=== PATIENT | male | born 1985 | race African-American/Black ===

== ENCOUNTER 2016-11-22 18:44 | Emergency (ER) | payer MEDICARE, OTHER | END 2016-11-22 19:40 | disposition left against medical advice (07) | LOC: ER 18:44 | DX: Z53.9 Procedure and treatment not carried out, unspecified reason (principal); R10.9 Unspecified abdominal pain ==

== ENCOUNTER 2016-11-23 06:23 | Emergency (ER) | payer OTHER, MEDICARE ==
--- NOTE | 2016-11-23 07:56 | EKG REPORT ---
SEVERITY:- OTHERWISE NORMAL ECG - SINUS RHYTHM BORDERLINE LEFT AXIS DEVIATION ST ELEV, PROBABLE NORMAL EARLY REPOL PATTERN : Confirmed by: Danae Sahni 23-Nov-2016 07:55:53
[2016-11-23] MEDS ORDERED: MAG HYDROX/AL HYDROX/SIMETH SUSP 30 ML UDCUP PO ONE (08:24)
[2016-11-23] MEDS ORDERED: LIDOCAINE 2% VISCOUS SOLN 20 ML UDCUP PO ONE (08:24)
--- NOTE | 2016-11-23 08:25 | ER Document Report ---
ED General - General Chief Complaint: Nausea Stated Complaint: NAUSEA Mode of Arrival: Ambulatory Information source: Patient Notes: Patient complains of chest pain that started today around 4 AM while he was sleeping. Patient states that the chest pain has gradually started to resolve when he does complain of continued abdominal cramping for the past 3 days. Patient reports diarrhea 2 days ago that seems to be better today. Patient does complain of some mild nausea. Headache that starts in the occipital area and wraps around the sides of his head started yesterday. Patient denies any fever or cough. Patient does report a history of GERD. TRAVEL OUTSIDE OF THE [place] IN LAST 30 DAYS: No - HPI Onset: This morning Onset/Duration: Gradual Pain Level: 2 Associated symptoms: Chest pain - Now resolved, Diarrhea - 2 days ago, Headache , Nausea. 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 - Social History Smoking Status: Never Smoker Chew tobacco use (# tins/day): No Frequency of alcohol use: None Drug Abuse: None Occupation: none Lives with: Family Family History: Reviewed & Not Pertinent Patient has suicidal ideation: No Patient has homicidal ideation: No GI Medical History: Reports: Hx Gastroesophageal Reflux Disease Psychiatric Medical History: Reports: Hx Anxiety, Hx Depression, Hx Post Traumatic Stress Disorder Past Surgical History: Reports: Hx Oral Surgery, Hx Tonsillectomy - Immunizations Hx Diphtheria, Pertussis, Tetanus Vaccination: Yes Review of Systems - Review of Systems Constitutional: No symptoms reported. denies: Fever, Recent illness EENT: No symptoms reported Cardiovascular: Chest pain. denies: Dyspnea, Syncope Respiratory: No symptoms reported. denies: Cough Gastrointestinal: Abdominal pain, Diarrhea, Nausea. denies: Vomiting Genitourinary: No symptoms reported Male Genitourinary: No symptoms reported Musculoskeletal: Neck pain - Patient complains of neck pain, but points to the occipital area of his head. denies: Back pain Skin: No symptoms reported Hematologic/Lymphatic: No symptoms reported Neurological/Psychological: Anxiety, Headaches Physical Exam - Vital signs Vitals: Temp Pulse Resp BP Pulse Ox 98 F 78 18 138/77 H 97 11/23/16 06:36 11/23/16 06:36 11/23/16 06:36 11/23/16 06:36 11/23/16 06:36 - General General appearance: Appears well, Alert In distress: None - HEENT Head: Normocephalic, Atraumatic Eyes: Normal Pupils: PERRL Ears: Normal External canal: Normal Nasal: Normal Mouth/Lips: Normal Mucous membranes: Normal Pharynx: Normal. No: Exudate, Tonsillar hypertrophy Neck: Normal, Supple. No: Lymphadenopathy, Meningismus - Respiratory Respiratory status: No respiratory distress Chest status: Nontender Breath sounds: Normal. No: Rales, Rhonchi, Stridor, Wheezing Chest palpation: Normal - Cardiovascular Rhythm: Regular Heart sounds: S1 appreciated, S2 appreciated Murmur: No - Abdominal Inspection: Obese Distension: No distension Bowel sounds: Normal Tenderness: Tender - Generalized abdominal tenderness. No: Guarding Organomegaly: No organomegaly - Back Back: Normal, Nontender. No: Deformity/step-off, CVA tenderness, Vertebra tenderness - Extremities General upper extremity: Normal inspection, Normal strength General lower extremity: Normal inspection, Normal strength - Neurological Neuro grossly intact: Yes Cognition: Normal Lisa Coma Scale Eye Opening: Spontaneous Lisa Coma Scale Verbal: Oriented [place] Coma Scale Motor: Obeys Commands Lisa Coma Scale Total: 15 - Psychological Associated symptoms: Anxious - Skin Skin Temperature: Warm Skin Moisture: Dry Skin Color: Normal Skin irregularity: negative: Rash Course - Re-evaluation Re-evalutation: 11/23/16 09:56 Patient denies any chest pain, states abdominal pain seems to be improving. Patient does continue with headache pain. 11/23/16 11:40 Patient continues to deny any chest discomfort. Patient states abdominal pain is resolved. Patient reports only mild headache at this time. Discussed worsening signs or symptoms that patient should return immediately for. Patient verbalized understanding and agrees plan of care. The patient has atypical chest pain as the patient's chest pain is not suggestive of pulmonary embolus, cardiac ischemia, aortic dissection, or other serious etiology. Given the extremely low risk of these diagnoses for the test in evaluation for these possibilities does not appear to be indicated at this time. Patient has been instructed to return if the symptoms worsen or change in any way. HEART score H- 0, E-1, A-0,R-0, T-0. - Vital Signs Vital signs: Temp Pulse Resp BP Pulse Ox 98.0 F 75 18 135/75 H 100 11/23/16 12:22 11/23/16 12:22 11/23/16 12:22 11/23/16 12:22 11/23/16 12:22 - Laboratory Result Diagrams: 11/23/16 09:15 11/23/16 09:15 Laboratory results interpreted by me: 11/23/16 11/23/16 09:15 09:15 WBC 3.6 L RBC 6.16 H MCV 72 L MCH 23.2 L RDW 15.6 H Band Neutrophils % 1 L Monocytes % (Manual) 17 H ALT 86 H Creatine Kinase 317 H - Diagnostic Test Radiology reviewed: Reports reviewed - EKG Interpretation by Ut EKG shows normal: Sinus rhythm [place]/QRS: Left axis deviation When compared to previous EKG there are: No significant change Discharge - Discharge Clinical Impression: Hx of gastroesophageal reflux (GERD), Abdominal cramping Chest pain Qualifiers: Chest pain type: unspecified Qualified Code(s): R07.9 - Chest pain, unspecified Headache Qualifiers: Headache type: unspecified Headache chronicity pattern: acute headache Intractability: not intractable Qualified Code(s): R51 - Headache Condition: Stable Disposition: HOME, SELF-CARE Instructions: Chest Pain of Unclear Cause ([facility]), Reflux Disease (GERD) ([facility]), Tension Headache ([facility]), Abdominal Pain ([facility]), Diarrhea, Nonspecific ([facility]) Additional Instructions: Return immediately for any new or worsening symptoms Followup with your primary care provider, call tomorrow to make a followup appointment Prescriptions: Butalb/Acetaminophen/Caffeine [Fioricet (50-325-40 mg) Tablet] 1 - 2 tab PO Q4H #20 each Sucralfate [Carafate 1 gm Tablet] 1 gm PO ACHS #30 tablet Referrals: [facility] [Provider Group] - Follow up tomorrow
[2016-11-23 09:43] LABS: HEMATOCRIT 44.2 % (37.9-51.0); HEMOGLOBIN 14.3 g/dL (13.5-17.0); HGB HCT DIFFERENCE -1.3; MEAN CORPUSCULAR HEMOGLOBIN 23.2 pg (27.0-33.4); MEAN CORPUSCULAR HGB CONC 32.3 g/dL (32.0-36.0); MEAN CORPUSCULAR VOLUME 72 fl (80-97); RED BLOOD COUNT 6.16 10^6/uL (4.35-5.55); RED CELL DISTRIBUTION WIDTH 15.6 % (11.5-14.0); WHITE BLOOD COUNT 3.6 10^3/uL (4.0-10.5)
[2016-11-23 09:54] LABS: APPEARANCE,URINE CLEAR; BILIRUBIN,URINE NEGATIVE (NEGATIVE); GLUCOSE, URINE NEGATIVE (NEGATIVE); KETONES,URINE NEGATIVE (NEGATIVE); LEUKOCYTE ESTERASE,URINE NEGATIVE (NEGATIVE); NITRITE,URINE NEGATIVE (NEGATIVE); PROTEIN,URINE NEGATIVE (NEGATIVE); URINE SPECIFIC GRAVITY 1.018; UROBILINOGEN,URINE NEGATIVE mg/dL (<2.0)
[2016-11-23] MEDS ORDERED: BUTALB/ACETAMINOPHEN/CAFFEINE 1 TAB EACH PO ONE (09:55)
[2016-11-23 10:06] LABS: URINE BARBITURATES SCREEN NEGATIVE; URINE METHADONE SCREEN NEGATIVE; URINE PHENCYCLIDINE SCREEN NEGATIVE
[2016-11-23 10:11] LABS: BAND NEUTROPHILS % (MANUAL) 1 % (3-5); BASOPHILS % (MANUAL) 2 % (0-2); EOSINOPHILS % (MANUAL) 0 % (0-6); LYMPHOCYTES % (MANUAL) 30 % (13-45); TOTAL CELLS COUNTED 100
[2016-11-23 10:12] LABS: ANISOCYTOSIS SLIGHT; MICROCYTOSIS 1+; TOXIC GRANULATION SLIGHT; TOXIC VACUOLATION PRESENT
[2016-11-23 10:25] LABS: ALANINE AMINOTRANSFERASE 86 U/L (21-72); ALBUMIN 4.5 g/dL (3.5-5.0); ALKALINE PHOSPHATASE 43 U/L (38-126); ANION GAP 14 (5-19); ASPARTATE AMINO TRANSFERASE 42 U/L (17-59); BILIRUBIN,TOTAL 0.9 mg/dL (0.2-1.3); BLOOD UREA NITROGEN 8 mg/dL (7-20); CALCIUM 9.3 mg/dL (8.4-10.2); CARBON DIOXIDE 24 mmol/L (22-30); CHLORIDE 103 mmol/L (98-107); CREATINE KINASE 317 U/L (55-170); CREATININE RESULT 0.99 mg/dL (0.52-1.25); GLUCOSE 103 mg/dL (75-110); LIPASE 123.8 U/L (23-300); POTASSIUM 4.1 mmol/L (3.6-5.0); SODIUM 140.6 mmol/L (137-145); TOTAL PROTEIN 7.5 g/dL (6.3-8.2)
[2016-11-23 10:34] LABS: CREATINE KINASE MB 0.29 ng/mL (<4.55)
[2016-11-23 10:36] LABS: TROPONIN I < 0.012 ng/mL
[2016-11-23 12:23] VITALS: BP 135/75
== END 2016-11-23 12:23 | disposition home or self-care (01) ==
LOC: ER 06:23
DX: R10.9 Unspecified abdominal pain (principal); R11.0 Nausea; R51 Headache; R07.89 Other chest pain; R10.817 Generalized abdominal tenderness; F41.9 Anxiety disorder, unspecified; Z88.8 Allergy status to other drugs, medicaments and biological substances; Z88.6 Allergy status to analgesic agent; Z87.19 Personal history of other diseases of the digestive system
CPT/HCPCS: 93005; 99284; 36415; 82553; 82550; 83690; 85025; 80053; 81001; 84484; 80307; 71020; 70450; 93010; J3490 ×2

== ENCOUNTER 2016-12-21 05:17 | Emergency (ER) | payer OTHER, MEDICARE ==
[2016-12-21 06:08] LABS: ABSOLUTE BASOPHILS # (AUTO) 0.1 10^3/uL (0.0-0.2); ABSOLUTE EOSINOPHILS # (AUTO) 0.5 10^3/uL (0.0-0.6); ABSOLUTE LYMPHOCYTES (AUTO) 2.5 10^3/uL (0.5-4.7); ABSOLUTE MONOCYTES (AUTO) 0.6 10^3/uL (0.1-1.4); ABSOLUTE NEUT (AUTO) 2.4 10^3/uL (1.7-8.2); BASOPHILS % (AUTO) 0.9 % (0-2); EOSINOPHILS % (AUTO) 7.5 % (0-6); HEMATOCRIT 41.5 % (37.9-51.0); HEMOGLOBIN 13.4 g/dL (13.5-17.0); HGB HCT DIFFERENCE -1.3; MEAN CORPUSCULAR HEMOGLOBIN 23.2 pg (27.0-33.4); MEAN CORPUSCULAR HGB CONC 32.2 g/dL (32.0-36.0); MEAN CORPUSCULAR VOLUME 72 fl (80-97); MONOCYTES % (AUTO) 9.3 % (3-13); RED BLOOD COUNT 5.76 10^6/uL (4.35-5.55); RED CELL DISTRIBUTION WIDTH 15.5 % (11.5-14.0); SEGMENTED NEUTROPHILS % (AUTO) 40.3 % (42-78)
[2016-12-21 06:26] LABS: ALANINE AMINOTRANSFERASE 68 U/L (21-72); ALKALINE PHOSPHATASE 41 U/L (38-126); ANION GAP 12 (5-19); ASPARTATE AMINO TRANSFERASE 29 U/L (17-59); BILIRUBIN,TOTAL 0.6 mg/dL (0.2-1.3); BLOOD UREA NITROGEN 18 mg/dL (7-20); CALCIUM 9.5 mg/dL (8.4-10.2); CARBON DIOXIDE 24 mmol/L (22-30); CHLORIDE 103 mmol/L (98-107); CREATINE KINASE 420 U/L (55-170); CREATININE RESULT 0.88 mg/dL (0.52-1.25); GLUCOSE 127 mg/dL (75-110); POTASSIUM 4.1 mmol/L (3.6-5.0); SODIUM 138.9 mmol/L (137-145); TOTAL PROTEIN 7.1 g/dL (6.3-8.2)
[2016-12-21 06:38] LABS: CREATINE KINASE MB 0.74 ng/mL (<4.55)
[2016-12-21 06:42] LABS: TROPONIN I < 0.012 ng/mL
[2016-12-21] MEDS ORDERED: KETOROLAC TROMETHAMINE 60 MG/2 ML SDV IM ONE ×2 (08:38→08:41)
--- NOTE | 2016-12-21 08:50 | ER Document Report ---
ED General - General Chief Complaint: Chest Pain Stated Complaint: LEFT SIDE NUMBNESS Mode of Arrival: Ambulatory Information source: Patient Notes: 31-year-old male history of anxiety presents with tingling sensation in the left hand associated with sharp pain around the left chest worsening with movement. Patient notes symptoms have been constant for 4 days denies any shortness breath difficult to breathing. Patient notes it is reproducible TRAVEL OUTSIDE OF THE [place] IN LAST 30 DAYS: No - HPI Onset: Other Onset/Duration: Persistent Quality of pain: Sharp Severity: Mild Pain Level: 1 Associated symptoms: Body/muscle aches Exacerbated by: Movement Relieved by: Denies Similar symptoms previously: Yes - patient diagnosed with costochondritis last year Recently seen / treated by doctor: No - Related Data Allergies/Adverse Reactions: cyclobenzaprine HCl [From Flexeril] Allergy (Verified 11/23/16 07:54) ibuprofen [From Motrin] Allergy (Verified 11/23/16 07:54) ketorolac tromethamine [From Toradol] Allergy (Verified 11/23/16 07:54) lorazepam [From Ativan] Allergy (Verified 11/23/16 07:54) tramadol [Tramadol] Allergy (Verified 11/23/16 07:54) Past Medical History - Social History Smoking Status: Never Smoker Cigarette use (# per day): No Chew tobacco use (# tins/day): No Smoking Education Provided: No Family History: Reviewed & Not Pertinent Renal/ Medical History: Denies: Hx Peritoneal Dialysis GI Medical History: Reports: Hx Gastroesophageal Reflux Disease Psychiatric Medical History: Reports: Hx Anxiety, Hx Depression - PTSD, anxiety , Hx Post Traumatic Stress Disorder Past Surgical History: Reports: Hx Oral Surgery, Hx Tonsillectomy - Immunizations Hx Diphtheria, Pertussis, Tetanus Vaccination: Yes Review of Systems - Review of Systems Notes: REVIEW OF SYSTEMS: CONSTITUTIONAL : Denies fever, chills, or sweats. Denies recent illness. EENT: Denies eye, ear, throat, or mouth pain or symptoms. Denies nasal or sinus congestion or discharge. Denies throat, tongue, or mouth swelling or difficulty swallowing. CARDIOVASCULAR: Denies chest pain. Denies palpitations or racing or irregular heart beat. Denies ankle edema. RESPIRATORY: Denies cough, cold, or chest congestion. Denies shortness of breath, difficulty breathing, or wheezing. GASTROINTESTINAL: Denies abdominal pain or distention. Denies nausea, vomiting , or diarrhea. Denies blood in vomitus, stools, or per rectum. Denies black, tarry stools. Denies constipation. GENITOURINARY: Denies difficulty urinating, painful urination, burning, frequency, blood in urine, or discharge. MUSCULOSKELETAL: Chest wall pain SKIN: Denies rash, lesions or sores. HEMATOLOGIC : Denies easy bruising or bleeding. LYMPHATIC: Denies swollen, enlarged glands. NEUROLOGICAL: Left hand tingling PSYCHIATRIC: Denies anxiety or stress. Denies depression, suicidal ideation, or homicidal ideation. ALL OTHER SYSTEMS REVIEWED AND NEGATIVE. Dictation was performed using [employer] voice recognition software PHYSICAL EXAMINATION: GENERAL: Well-appearing, well-nourished and in no acute distress. HEAD: Atraumatic, normocephalic. EYES: Pupils equal round and reactive to light, extraocular movements intact, sclera anicteric, conjunctiva are normal. ENT: Nares patent, oropharynx clear without exudates. Moist mucous membranes. NECK: Normal range of motion, supple without lymphadenopathy LUNGS: Breath sounds clear to auscultation bilaterally and equal. No wheezes rales or rhonchi. HEART: Regular rate and rhythm without murmurs ABDOMEN: Soft, nontender, nondistended abdomen. No guarding, no rebound. No masses appreciated. Musculoskeletal: Chest wall tenderness on palpation reproducing same exact pain NEUROLOGICAL: Subjective paresthesia of the left hand PSYCH: Normal mood, normal affect. SKIN: Warm, Dry, normal turgor, no rashes or lesions noted. Physical Exam - Vital signs Vitals: Pulse Ox 100 12/21/16 08:04 Course - Re-evaluation Re-evalutation: 12/21/16 08:52 On evaluation patient is in no distress, he is resting comfortably, given that symptoms have been ongoing for 4 days constant cardiac enzyme should be elevated , first set was negative. Patient otherwise does not have any cardiac history or risk factors I believe patient's pain is secondary to costochondritis versus anxiety. After performing a Medical Screening Examination, I estimate there is LOW risk for RUPTURED ESOPHAGUS, PNEUMOTHORAX, PULMONARY EMBOLISM, ACUTE CORONARY SYNDROME, OR THORACIC AORTIC DISSECTION, thus I consider the discharge disposition reasonable. The patient and I have discussed the diagnosis and risks , and we agree with discharging home with close follow-up. We also discussed returning to the Emergency Department immediately if new or worsening symptoms occur. We have discussed the symptoms which are most concerning (e.g., bloody sputum, worsening pain or shortness of breath) that necessitate immediate return. - Vital Signs Vital signs: Temp Pulse Resp BP Pulse Ox 100 12/21/16 08:04 - Laboratory Result Diagrams: 12/21/16 05:48 12/21/16 05:48 Laboratory results interpreted by me: 12/21/16 12/21/16 05:48 05:48 RBC 5.76 H Hgb 13.4 L MCV 72 L MCH 23.2 L RDW 15.5 H Seg Neutrophils % 40.3 L Eosinophils % 7.5 H Glucose 127 H Creatine Kinase 420 H - Diagnostic Test Radiology reviewed: Image reviewed, Reports reviewed - EKG Interpretation by Me EKG shows normal: Sinus rhythm, [place], Intervals, QRS Complexes Discharge - Discharge Clinical Impression: Chest wall pain, Left hand paresthesia Condition: Stable Disposition: HOME, SELF-CARE Instructions: Chest Pain of Unclear Cause ([facility]) Prescriptions: Naproxen 500 mg PO BID #20 tablet Referrals: SARA RAMIREZ MD [ACTIVE STAFF] - Follow up tomorrow
[2016-12-21] MEDS ORDERED: PROPOFOL INJ 200 MG/20 ML VIAL IV ONE (09:28)
[2016-12-21 10:38] VITALS: BP 138/102
--- NOTE | 2016-12-21 11:24 | EKG REPORT ---
SEVERITY:- OTHERWISE NORMAL ECG - SINUS RHYTHM LEFT AXIS DEVIATION ST ELEV, PROBABLE NORMAL EARLY REPOL PATTERN : Confirmed by: Danae Sahni 21-Dec-2016 11:23:56
== END 2016-12-21 10:38 | disposition home or self-care (01) ==
LOC: ER 05:17
DX: R07.89 Other chest pain (principal); R20.2 Paresthesia of skin; Z88.8 Allergy status to other drugs, medicaments and biological substances; Z88.6 Allergy status to analgesic agent; Z88.5 Allergy status to narcotic agent; Z87.19 Personal history of other diseases of the digestive system
CPT/HCPCS: 36415; 71010; 80053; 82550; 82553; 84484; 85025; 93005; 93010; 99285

== ENCOUNTER 2017-03-16 03:22 | Emergency (ER) | payer OTHER, MEDICARE ==
[2017-03-16] MEDS ORDERED: MORPHINE SULFATE 10 MG/ML INJ IV ONE (04:50)
[2017-03-16] MEDS ORDERED: DEXAMETHASONE SOD PHOS INJ 10 MG/1 ML VIAL IV ONE (04:50)
[2017-03-16] MEDS ORDERED: DIPHENHYDRAMINE HCL 50 MG/ML VIAL IV ONE (04:50)
[2017-03-16] MEDS ORDERED: NORMAL SALINE 1000 ML 1,000 ML IV ONE (04:51)
--- NOTE | 2017-03-16 04:55 | ER Document Report ---
ED General - General Chief Complaint: Chest Pain Stated Complaint: CHEST PAIN HEADACHE AND NECK PAIN Time seen by provider: 04:50 Notes: Patient is a 31-year-old male that comes emergency department for chief complaint of pain in his left axillary area at the lower ribs where he having intermittent sharp pains, he'll states he has a pain in the left rastafari area, he states he feels like he is getting spasms and muscle jerks. He denies shortness of breath, injury, fever, cough. Patient states he has had similar symptoms in the past both from costochondritis and from a medication side effect. He is on medications including antidepressants and benzodiazepines for PTSD and depression. TRAVEL OUTSIDE OF THE [place] IN LAST 30 DAYS: No - Related Data Allergies/Adverse Reactions: cyclobenzaprine HCl [From Flexeril] Allergy (Verified 11/23/16 07:54) ibuprofen [From Motrin] Allergy (Verified 11/23/16 07:54) ketorolac tromethamine [From Toradol] Allergy (Verified 11/23/16 07:54) lorazepam [From Ativan] Allergy (Verified 11/23/16 07:54) tramadol [Tramadol] Allergy (Verified 11/23/16 07:54) Past Medical History - General Information source: Patient - Social History Smoking Status: Never Smoker Drug Abuse: None Lives with: Family Family History: Reviewed & Not Pertinent Renal/ Medical History: Denies: Hx Peritoneal Dialysis GI Medical History: Reports: Hx Gastroesophageal Reflux Disease Psychiatric Medical History: Reports: Hx Anxiety, Hx Depression - PTSD, anxiety , Hx Post Traumatic Stress Disorder Past Surgical History: Reports: Hx Oral Surgery, Hx Tonsillectomy - Immunizations Hx Diphtheria, Pertussis, Tetanus Vaccination: Yes Review of Systems - Review of Systems Constitutional: No symptoms reported EENT: No symptoms reported Cardiovascular: No symptoms reported Respiratory: No symptoms reported Gastrointestinal: No symptoms reported Genitourinary: No symptoms reported Male Genitourinary: No symptoms reported Musculoskeletal: See HPI Skin: No symptoms reported Hematologic/Lymphatic: No symptoms reported Neurological/Psychological: See HPI Physical Exam - Vital signs Vitals: Temp Pulse Resp BP Pulse Ox 97.5 F 78 18 128/62 H 97 03/16/17 03:32 03/16/17 03:32 03/16/17 03:32 03/16/17 03:32 03/16/17 03:32 Interpretation: Normal - General General appearance: Appears well, Alert In distress: None - HEENT Head: Normocephalic, Atraumatic Eyes: Normal Conjunctiva: Normal Extraocular movements intact: Yes Eyelashes: Normal Pupils: PERRL Sinus: Normal Nasal: Normal Mouth/Lips: Normal Mucous membranes: Normal Pharynx: Normal Neck: Normal - Respiratory Respiratory status: No respiratory distress Chest status: Tender - There is mild tenderness in the left mid axillary area near the lower ribs, no signs of injury, no erythema or abnormality noted otherwise Breath sounds: Normal Chest palpation: Normal - Cardiovascular Rhythm: Regular. No: Tachycardia Heart sounds: Normal auscultation, S1 appreciated, S2 appreciated Murmur: No - Abdominal Inspection: Normal Distension: No distension Bowel sounds: Normal Tenderness: Nontender. No: Tender Organomegaly: No organomegaly - Back Back: Normal, Nontender. No: Tender - Extremities General upper extremity: Normal inspection, Nontender, Normal color, Normal ROM , Normal temperature General lower extremity: Normal inspection, Nontender, Normal color, Normal ROM , Normal temperature, Normal weight bearing. No: Toni's sign - Neurological Neuro grossly intact: Yes Cognition: Normal Orientation: AAOx4 Lisa Coma Scale Eye Opening: Spontaneous [place] Coma Scale Verbal: Oriented Lisa Coma Scale Motor: Obeys Commands Lisa Coma Scale Total: 15 Speech: Normal Motor strength normal: LUE, RUE, LLE, RLE Sensory: Normal - Psychological Associated symptoms: Normal affect, Normal mood - Skin Skin Temperature: Warm Skin Moisture: Dry Skin Color: Normal Course - Re-evaluation Re-evalutation: EKG shows sinus rhythm, questionable ST elevation suggestive of J-point elevation, compared to previous EKG with no changes noted. Chest x-ray is unremarkable. Patient actually is not, the pain is only in the mid lower axillary area and this is reproducible on palpation. No injuries to the area. CBC, chemistry unremarkable. On reexamination after Benadryl and Decadron patient is asymptomatic, states he feels much better and he is ready to go home. Very low suspicion of any acute abnormality or emergent pathology. Recommended primary care follow-up, discussed return precautions, patient states understanding and agreement. - Vital Signs Vital signs: Temp Pulse Resp BP Pulse Ox 97.5 F 78 18 128/62 H 97 03/16/17 03:32 03/16/17 03:32 03/16/17 03:32 03/16/17 03:32 03/16/17 03:32 - Laboratory Result Diagrams: 03/16/17 05:40 03/16/17 07:01 Laboratory results interpreted by me: 03/16/17 03/16/17 05:40 07:01 RBC 5.81 H MCV 72 L MCH 23.2 L RDW 15.9 H ALT 77 H Discharge - Discharge Clinical Impression: Rib pain on left side Headache Qualifiers: Headache type: unspecified Headache chronicity pattern: acute headache Intractability: not intractable Qualified Code(s): R51 - Headache Condition: Stable Disposition: HOME, SELF-CARE Additional Instructions: You have been treated with dexamethasone today, this should last for about 3 days in her system to treat your symptoms of discomfort and pain. Workup and examination today shows no acute abnormality. This does appear to be musculoskeletal, possibly costochondritis, apply heat to the area needed, avoid lifting and twisting. Follow-up with your primary provider for additional management. Return to the emergency department for any concerning or worsening symptoms.
[2017-03-16 05:54] LABS: ABSOLUTE BASOPHILS # (AUTO) 0.1 10^3/uL (0.0-0.2); ABSOLUTE EOSINOPHILS # (AUTO) 0.3 10^3/uL (0.0-0.6); ABSOLUTE LYMPHOCYTES (AUTO) 2.6 10^3/uL (0.5-4.7); ABSOLUTE MONOCYTES (AUTO) 0.6 10^3/uL (0.1-1.4); ABSOLUTE NEUT (AUTO) 3.2 10^3/uL (1.7-8.2); BASOPHILS % (AUTO) 0.8 % (0-2); EOSINOPHILS % (AUTO) 5.1 % (0-6); HEMATOCRIT 41.9 % (37.9-51.0); HEMOGLOBIN 13.5 g/dL (13.5-17.0); HGB HCT DIFFERENCE -1.4; LYMPHOCYTES % (AUTO) 38.2 % (13-45); MEAN CORPUSCULAR HEMOGLOBIN 23.2 pg (27.0-33.4); MEAN CORPUSCULAR HGB CONC 32.1 g/dL (32.0-36.0); MEAN CORPUSCULAR VOLUME 72 fl (80-97); MONOCYTES % (AUTO) 8.4 % (3-13); RED BLOOD COUNT 5.81 10^6/uL (4.35-5.55); RED CELL DISTRIBUTION WIDTH 15.9 % (11.5-14.0); SEGMENTED NEUTROPHILS % (AUTO) 47.5 % (42-78); WHITE BLOOD COUNT 6.8 10^3/uL (4.0-10.5)
[2017-03-16 07:21] LABS: ALANINE AMINOTRANSFERASE 77 U/L (21-72); ALBUMIN 4.2 g/dL (3.5-5.0); ALKALINE PHOSPHATASE 44 U/L (38-126); ANION GAP 10 (5-19); ASPARTATE AMINO TRANSFERASE 33 U/L (17-59); BILIRUBIN,DIRECT 0.3 mg/dL (0.0-0.4); BILIRUBIN,TOTAL 0.5 mg/dL (0.2-1.3); BLOOD UREA NITROGEN 18 mg/dL (7-20); CALCIUM 9.1 mg/dL (8.4-10.2); CARBON DIOXIDE 26 mmol/L (22-30); CHLORIDE 106 mmol/L (98-107); CREATININE RESULT 0.95 mg/dL (0.52-1.25); GLUCOSE 101 mg/dL (75-110); POTASSIUM 3.8 mmol/L (3.6-5.0); SODIUM 142.4 mmol/L (137-145)
[2017-03-16 08:36] VITALS: BP 132/76
--- NOTE | 2017-03-16 09:36 | EKG REPORT ---
SEVERITY:- OTHERWISE NORMAL ECG - SINUS RHYTHM LEFT AXIS DEVIATION ST ELEV, PROBABLE NORMAL EARLY REPOL PATTERN : Confirmed by: Danae Sahni 16-Mar-2017 09:35:03
== END 2017-03-16 08:25 | disposition home or self-care (01) ==
LOC: ER 03:22
DX: R07.81 Pleurodynia (principal); R51 Headache; F43.10 Post-traumatic stress disorder, unspecified; F32.9 Major depressive disorder, single episode, unspecified; Z79.899 Other long term (current) drug therapy; Z88.8 Allergy status to other drugs, medicaments and biological substances; Z88.6 Allergy status to analgesic agent; Z88.5 Allergy status to narcotic agent
CPT/HCPCS: 93005; 99285; 96361; 96374; 96375; 36415; 85025; 80053; 71010; 93010; J1200; J7030; J1100

== ENCOUNTER 2017-05-20 20:18 | Emergency (ER) | payer OTHER, MEDICARE ==
[2017-05-20 20:33] VITALS: BP 133/77
[2017-05-20] MEDS ORDERED: ASPIRIN 81 MG TABLET, CHEWABLE PO ONE (21:11)
--- NOTE | 2017-05-20 21:51 | RADIOLOGY REPORT (SQ) ---
EXAM DESCRIPTION: CHEST PA/LAT COMPLETED DATE/TIME: 05/20/2017 9:42 pm REASON FOR STUDY: chest pain COMPARISON: 11/23/2016. TECHNIQUE: Frontal and lateral radiographic views of the chest acquired. NUMBER OF VIEWS: Two view. LIMITATIONS: None. FINDINGS: LUNGS AND PLEURA: No opacities, masses or pneumothorax. No pleural effusion. MEDIASTINUM AND HILAR STRUCTURES: No masses or contour abnormalities. HEART AND VASCULAR STRUCTURES: Heart normal size. No evidence for failure. BONES: No acute findings. HARDWARE: None in the chest. OTHER: No other significant finding. IMPRESSION: NO SIGNIFICANT RADIOGRAPHIC FINDING IN THE CHEST. TECHNICAL DOCUMENTATION: JOB ID: [id number] [email or web address]- All Rights Reserved
[2017-05-20 22:57] LABS: ABSOLUTE BASOPHILS # (AUTO) 0.1 10^3/uL (0.0-0.2); ABSOLUTE EOSINOPHILS # (AUTO) 0.4 10^3/uL (0.0-0.6); ABSOLUTE LYMPHOCYTES (AUTO) 2.5 10^3/uL (0.5-4.7); ABSOLUTE MONOCYTES (AUTO) 0.7 10^3/uL (0.1-1.4); ABSOLUTE NEUT (AUTO) 2.8 10^3/uL (1.7-8.2); BASOPHILS % (AUTO) 0.8 % (0-2); EOSINOPHILS % (AUTO) 6.3 % (0-6); HEMATOCRIT 44.5 % (37.9-51.0); HGB HCT DIFFERENCE -2.5; LYMPHOCYTES % (AUTO) 39.1 % (13-45); MEAN CORPUSCULAR HGB CONC 31.4 g/dL (32.0-36.0); MEAN CORPUSCULAR VOLUME 73 fl (80-97); MONOCYTES % (AUTO) 10.7 % (3-13); RED BLOOD COUNT 6.06 10^6/uL (4.35-5.55); RED CELL DISTRIBUTION WIDTH 15.6 % (11.5-14.0); SEGMENTED NEUTROPHILS % (AUTO) 43.1 % (42-78); WHITE BLOOD COUNT 6.4 10^3/uL (4.0-10.5)
[2017-05-20 23:06] LABS: ALANINE AMINOTRANSFERASE 65 U/L (21-72); ALBUMIN 4.4 g/dL (3.5-5.0); ALKALINE PHOSPHATASE 43 U/L (38-126); ANION GAP 11 (5-19); ASPARTATE AMINO TRANSFERASE 28 U/L (17-59); BILIRUBIN,DIRECT 0.2 mg/dL (0.0-0.4); BILIRUBIN,TOTAL 0.6 mg/dL (0.2-1.3); BLOOD UREA NITROGEN 13 mg/dL (7-20); CALCIUM 9.5 mg/dL (8.4-10.2); CARBON DIOXIDE 24 mmol/L (22-30); CHLORIDE 104 mmol/L (98-107); CREATINE KINASE 337 U/L (55-170); CREATININE RESULT 0.95 mg/dL (0.52-1.25); GLUCOSE 99 mg/dL (75-110); POTASSIUM 4.1 mmol/L (3.6-5.0); PROTHROMBIN TIME 12.7 SEC (11.4-15.4); SODIUM 138.9 mmol/L (137-145); TOTAL PROTEIN 7.5 g/dL (6.3-8.2)
[2017-05-20 23:17] LABS: CREATINE KINASE MB 0.71 ng/mL (<4.55)
[2017-05-20 23:20] LABS: TROPONIN I < 0.012 ng/mL
--- NOTE | 2017-05-21 08:26 | EKG REPORT ---
SEVERITY:- OTHERWISE NORMAL ECG - SINUS RHYTHM LEFT AXIS DEVIATION : Confirmed by: Alok Pascual MD 21-May-2017 08:25:04
== END 2017-05-21 01:00 | disposition left against medical advice (07) ==
LOC: ER 20:18
DX: Z53.21 Procedure and treatment not carried out due to patient leaving prior to being seen by health care provider (principal)
CPT/HCPCS: 36415; 71020; 80053; 82550; 82553; 84484; 85025; 85610; 93005; 93010

== ENCOUNTER 2017-07-20 01:42 | Emergency (ER) | payer OTHER, MEDICARE ==
[2017-07-20] MEDS ORDERED: BUPIVACAINE HCL 0.5 % INJ/PF 30 ML SDV INJ ONE (02:49)
--- NOTE | 2017-07-20 02:57 | ER Document Report ---
ED General - General Chief Complaint: Jaw Pain Stated Complaint: JAW AND LEFT ARM PAIN Time Seen by Provider: 07/20/17 02:26 Mode of Arrival: Ambulatory Information source: Patient Notes: 32-year-old male presents with complaints of dental pain and left-sided face pain. Patient notes he was seen by his dentist 3 days ago noted to have 2 oral ulcerations. Patient took medication as prescribed to him states the pain has since worsened. Denies any fevers or chills. Patient's initial complaints included left arm pain which he denies TRAVEL OUTSIDE OF THE [place] IN LAST 30 DAYS: No - HPI Onset: Last week Onset/Duration: Persistent Quality of pain: Achy Severity: Mild Pain Level: 1 Associated symptoms: Other Exacerbated by: Denies Relieved by: Denies Similar symptoms previously: Yes Recently seen / treated by doctor: Yes - Related Data Allergies/Adverse Reactions: cyclobenzaprine HCl [From Flexeril] Allergy (Verified 11/23/16 07:54) ibuprofen [From Motrin] Allergy (Verified 11/23/16 07:54) ketorolac tromethamine [From Toradol] Allergy (Verified 11/23/16 07:54) lorazepam [From Ativan] Allergy (Verified 11/23/16 07:54) tramadol [Tramadol] Allergy (Verified 11/23/16 07:54) Past Medical History - Social History Smoking Status: Never Smoker Cigarette use (# per day): No Chew tobacco use (# tins/day): No Smoking Education Provided: No Family History: Reviewed & Not Pertinent Patient has suicidal ideation: No Patient has homicidal ideation: No Renal/ Medical History: Denies: Hx Peritoneal Dialysis GI Medical History: Reports: Hx Gastroesophageal Reflux Disease Psychiatric Medical History: Reports: Hx Anxiety, Hx Depression - PTSD, anxiety , Hx Post Traumatic Stress Disorder Past Surgical History: Reports: Hx Oral Surgery, Hx Tonsillectomy - Immunizations Hx Diphtheria, Pertussis, Tetanus Vaccination: Yes Review of Systems - Review of Systems Notes: REVIEW OF SYSTEMS: CONSTITUTIONAL : Denies fever, chills, or sweats. Denies recent illness. EENT: Admits to dental pain CARDIOVASCULAR: Denies chest pain. Denies palpitations or racing or irregular heart beat. Denies ankle edema. RESPIRATORY: Denies cough, cold, or chest congestion. Denies shortness of breath, difficulty breathing, or wheezing. GASTROINTESTINAL: Denies abdominal pain or distention. Denies nausea, vomiting , or diarrhea. Denies blood in vomitus, stools, or per rectum. Denies black, tarry stools. Denies constipation. GENITOURINARY: Denies difficulty urinating, painful urination, burning, frequency, blood in urine, or discharge. MUSCULOSKELETAL: Denies back or neck pain or stiffness. Denies joint pain or swelling. SKIN: Denies rash, lesions or sores. HEMATOLOGIC : Denies easy bruising or bleeding. LYMPHATIC: Denies swollen, enlarged glands. NEUROLOGICAL: Denies confusion or altered mental status. Denies passing out or loss of consciousness. Denies dizziness or lightheadedness. Denies headache. Denies weakness or paralysis or loss of use of either side. Denies problems with gait or speech. Denies sensory loss, numbness, or tingling. Denies seizures. PSYCHIATRIC: Denies anxiety or stress. Denies depression, suicidal ideation, or homicidal ideation. ALL OTHER SYSTEMS REVIEWED AND NEGATIVE. Dictation was performed using [employer] voice recognition software PHYSICAL EXAMINATION: GENERAL: Well-appearing, well-nourished and in no acute distress. HEAD: Atraumatic, normocephalic. EYES: Pupils equal round and reactive to light, extraocular movements intact, sclera anicteric, conjunctiva are normal. ENT: Nares patent, oropharynx clear without exudates. Moist mucous membranes. NECK: Normal range of motion, supple without lymphadenopathy LUNGS: Breath sounds clear to auscultation bilaterally and equal. No wheezes rales or rhonchi. HEART: Regular rate and rhythm without murmurs ABDOMEN: Soft, nontender, nondistended abdomen. No guarding, no rebound. No masses appreciated. Musculoskeletal: Normal range of motion, no pitting or edema. No cyanosis. NEUROLOGICAL: Cranial nerves grossly intact. Normal speech, normal gait. Normal sensory, motor exams PSYCH: Normal mood, normal affect. SKIN: Warm, Dry, normal turgor, no rashes or lesions noted. Physical Exam - Vital signs Vitals: Temp Pulse Resp BP Pulse Ox 98.4 F 63 18 145/70 H 97 07/20/17 01:47 07/20/17 01:47 07/20/17 01:47 07/20/17 01:47 07/20/17 01:47 Course - Re-evaluation Re-evalutation: 07/20/17 02:56 Physical examination noted no significant abnormality, patient has some dental caries but nothing obvious. He has no oral ulcerations. Patient's request I will perform a dental block for pain control 07/20/17 03:12 Dental block was performed with no complication complete resolution of pain. Patient will be discharged home with pain control and antibiotics otherwise well -appearing No signs of temporal arteritis noted After performing a Medical Screening Examination, I estimate there is LOW risk for a DEEP SPACE INFECTION (e.g., JULITA'S ANGINA OR RETROPHARYNGEAL ABSCESS), MENINGITIS, INTRACRANIAL HEMORRHAGE, or AIRWAY COMPROMISE, thus I consider the discharge disposition reasonable. Also, there is no evidence or peritonitis, sepsis, or toxicity. I have reevaluated this patient multiple times and no significant life threatening changes are noted. The patient and I have discussed the diagnosis and risks, and we agree with discharging home with close follow-up with the understanding that symptoms and presentations can change. We also discussed returning to the Emergency Department immediately if new or worsening symptoms occur. We have discussed the symptoms which are most concerning (e.g., changing or worsening pain, trouble swallowing or breathing, neck stiffness or fever) that necessitate immediate return. 07/20/17 03:13 - Vital Signs Vital signs: Temp Pulse Resp BP Pulse Ox 98.4 F 63 18 145/70 H 97 07/20/17 01:47 07/20/17 01:47 07/20/17 01:47 07/20/17 01:47 07/20/17 01:47 Procedures - Additional Procedures infraorbital dental block Time performed: 03:13 - using 10 cc of sensorcaine 0.5% with complete releif no complication Discharge - Discharge Clinical Impression: Pain, dental, Facial pain Condition: Stable Disposition: HOME, SELF-CARE Instructions: Dental Infection or Abscess ([facility]) Additional Instructions: Please follow-up with your dentist in 1-2 days for reevaluation or return immediately if there are any other concerns Prescriptions: Hydrocodone/Acetaminophen [[place] 5-325 mg Tablet] 1 tab PO Q6 #10 tablet Penicillin V Potassium [Penicillin Vk 500 mg Tablet] 500 mg PO Q6 #40 tablet
[2017-07-20 03:44] VITALS: BP 139/72
== END 2017-07-20 03:14 | disposition home or self-care (01) ==
LOC: ER 01:42
PROC: 3E0T3BZ Introduction of Anesthetic Agent into Peripheral Nerves and Plexi, Percutaneous Approach (ICD-10-PCS; principal; 2017-07-20)
DX: K02.9 Dental caries, unspecified (principal); K08.89 Other specified disorders of teeth and supporting structures; R51 Headache; Z88.8 Allergy status to other drugs, medicaments and biological substances; Z88.6 Allergy status to analgesic agent; Z88.5 Allergy status to narcotic agent
CPT/HCPCS: 99283

== ENCOUNTER 2017-07-29 05:24 | Emergency (ER) | payer OTHER, MEDICARE ==
[2017-07-29] MEDS ORDERED: DEXAMETHASONE SOD PHOS INJ 10 MG/1 ML VIAL IM ONE (06:10)
[2017-07-29] MEDS ORDERED: HYDROCODONE/ACETAMINOPHEN 5-325 MG 6 TAB/DSPK PO PRN (06:10)
--- NOTE | 2017-07-29 06:12 | ER Document Report ---
HPI - HPI Patient complains to provider of: facial and neck pain Pain Level: 5 Context: Patient is a 32-year-old male that comes emergency department for chief complaint of pain in his left jaw and face. He has been to the dentist twice, placed on amoxicillin, also seen emergency department elsewhere and diagnosed with possible trigeminal neuralgia, placed on carbamazepine. Patient denies fever, swelling of the face, other than just below the ear on the left side. He denies neck stiffness. He denies injury. Past Medical History - General Information source: Patient - Social History Smoking Status: Never Smoker Drug Abuse: None Lives with: Alone Family History: Reviewed & Not Pertinent Patient has suicidal ideation: No Patient has homicidal ideation: No Renal/ Medical History: Denies: Hx Peritoneal Dialysis GI Medical History: Reports: Hx Gastroesophageal Reflux Disease Psychiatric Medical History: Reports: Hx Anxiety, Hx Depression - PTSD, anxiety , Hx Post Traumatic Stress Disorder Past Surgical History: Reports: Hx Oral Surgery, Hx Tonsillectomy - Immunizations Hx Diphtheria, Pertussis, Tetanus Vaccination: Yes Vertical Provider Document - CONSTITUTIONAL General Appearance: WD/WN, No Apparent Distress - INFECTION CONTROL TRAVEL OUTSIDE OF THE [place] IN LAST 30 DAYS: No - HEENT HEENT: Atraumatic, Normal ENT Exam - No obvious abnormalities noted on the ENT exam, Normocephalic - NECK Neck: negative: Normal Inspection - There is a tender lymph node in the left anterior cervical chain, otherwise unremarkable - RESPIRATORY Respiratory: Breath Sounds Normal, No Respiratory Distress O2 Sat by Pulse Oximetry: 97 - CARDIOVASCULAR Cardiovascular: Regular Rate, Regular Rhythm - GI/ABDOMEN Gastrointestinal: Abdomen Soft, Abdomen Non-Tender - MUSCULOSKELETAL/EXTREMETIES Musculoskeletal/Extremeties: MAEW, FROM, Non-Tender - NEURO Level of Consciousness: Awake, Alert, Appropriate Course - Re-evaluation Re-evalutation: Patient has a swollen lymph node in his neck on the left side which is tender. Requesting treatment for this. After discussion agreed to give dexamethasone dose here. Patient appears to have dental related pain. He had a dental block last time which worked briefly but then his symptoms returned. I believe he needs an extraction or root canal. I discussed this with patient. He states he can follow-up with the dentist tomorrow. Given dose pack of pain medicine for today. Advised to continue amoxicillin. Discussed return precautions. Patient states understanding and agreement. He was offered a dental block but he declines. - Vital Signs Vital signs: Temp Pulse Resp BP Pulse Ox 97.4 F 71 18 160/84 H 97 07/29/17 05:28 07/29/17 05:28 07/29/17 05:28 07/29/17 05:07/29/17 05:28 Discharge - Discharge Clinical Impression: Facial pain, Lymphadenopathy Condition: Stable Disposition: HOME, SELF-CARE Additional Instructions: You have a swollen lymph node on the left side, we have been treated for this, take the provided medication if needed for pain along with your current medications. Appears to be dental in source, continue amoxicillin, I recommend following up with the dentist tomorrow. Return to emergency department for any concerning symptoms including swelling of the face, fever, difficulty breathing or swallowing, or any other concerning symptoms. Forms: Elevated Blood Pressure
[2017-07-29 06:30] VITALS: BP 141/89
== END 2017-07-29 06:37 | disposition home or self-care (01) ==
LOC: ER 05:24
DX: R51 Headache (principal); R59.1 Generalized enlarged lymph nodes; M54.2 Cervicalgia; K21.9 Gastro-esophageal reflux disease without esophagitis
CPT/HCPCS: 99282; 96372; J1100

== ENCOUNTER 2017-08-27 01:43 | Emergency (ER) | payer OTHER, MEDICARE ==
[2017-08-27 01:52] VITALS: BP 139/86
== END 2017-08-27 03:15 | disposition left against medical advice (07) ==
LOC: ER 01:43
DX: Z53.21 Procedure and treatment not carried out due to patient leaving prior to being seen by health care provider (principal)

== ENCOUNTER 2018-02-09 02:00 | Emergency (ER) | payer OTHER, MEDICARE ==
[2018-02-09 02:38] LABS: ABSOLUTE BASOPHILS # (AUTO) 0.1 10^3/uL (0.0-0.2); ABSOLUTE EOSINOPHILS # (AUTO) 0.4 10^3/uL (0.0-0.6); ABSOLUTE LYMPHOCYTES (AUTO) 2.5 10^3/uL (0.5-4.7); ABSOLUTE MONOCYTES (AUTO) 0.7 10^3/uL (0.1-1.4); ABSOLUTE NEUT (AUTO) 3.3 10^3/uL (1.7-8.2); BASOPHILS % (AUTO) 0.7 % (0-2); EOSINOPHILS % (AUTO) 5.4 % (0-6); HEMATOCRIT 41.9 % (37.9-51.0); HEMOGLOBIN 13.4 g/dL (13.5-17.0); LYMPHOCYTES % (AUTO) 36.1 % (13-45); MEAN CORPUSCULAR HEMOGLOBIN 23.2 pg (27.0-33.4); MEAN CORPUSCULAR HGB CONC 31.9 g/dL (32.0-36.0); MEAN CORPUSCULAR VOLUME 73 fl (80-97); MONOCYTES % (AUTO) 10.4 % (3-13); PLATELET COUNT 295 10^3/uL (150-450); RED BLOOD COUNT 5.77 10^6/uL (4.35-5.55); RED CELL DISTRIBUTION WIDTH 15.6 % (11.5-14.0); SEGMENTED NEUTROPHILS % (AUTO) 47.4 % (42-78); TOTAL CELLS COUNTED % (AUTO) 100 %
--- NOTE | 2018-02-09 02:46 | RADIOLOGY REPORT (SQ) ---
EXAM DESCRIPTION: CHEST SINGLE VIEW CLINICAL HISTORY: cp COMPARISON: 05/20/2017 FINDINGS: Single frontal view of the chest. The cardiomediastinal silhouette has normal size and contour. No consolidation, pneumothorax, or pleural effusion. No displaced rib fractures identified. Leads overlie the chest. Upper abdominal soft tissues are unremarkable. IMPRESSION: 1. No acute pulmonary process identified.
[2018-02-09 02:49] LABS: ANION GAP 9 (5-19); BLOOD UREA NITROGEN 22 mg/dL (7-20); CALCIUM 9.4 mg/dL (8.4-10.2); CARBON DIOXIDE 27 mmol/L (22-30); CHLORIDE 107 mmol/L (98-107); GLUCOSE 132 mg/dL (75-110); POTASSIUM 3.9 mmol/L (3.6-5.0); SODIUM 142.7 mmol/L (137-145)
--- NOTE | 2018-02-09 03:24 | ER Document Report ---
ED General - General Chief Complaint: Chest Pain Stated Complaint: CHEST PAIN Time Seen by Provider: 02/09/18 02:17 Notes: Patient is a 32-year-old male with a past medical history of PTSD, anxiety, morbid obesity who presents with chest pain. The patient reports a history of recurrent, intermittent, stabbing pain to the left intercostal muscles has been ongoing over the past 2-3 years. He states that the symptoms come on randomly and resolve without intervention. He states that his been told that this has been secondary to anxiety or muscle irritation. He had a stress test 2 years ago which was noted to be normal. He is uncertain what triggered his symptoms tonight. He notes that they have resolved since onset. He denies any associated shortness of breath, nausea, vomiting or radiation of the pain. He has no known history of coronary artery disease. No family history of early cardiac disease. TRAVEL OUTSIDE OF THE [place] IN LAST 30 DAYS: No - Related Data Allergies/Adverse Reactions: cyclobenzaprine HCl [From Flexeril] Allergy (Verified 07/29/17 05:28) ibuprofen [From Motrin] Allergy (Verified 07/29/17 05:28) ketorolac tromethamine [From Toradol] Allergy (Verified 07/29/17 05:28) lorazepam [From Ativan] Allergy (Verified 07/29/17 05:28) tramadol [Tramadol] Allergy (Verified 07/29/17 05:28) Past Medical History - General Information source: Patient - Social History Smoking Status: Never Smoker Chew tobacco use (# tins/day): No Frequency of alcohol use: Rare Drug Abuse: None Lives with: Spouse/Significant other Family History: Reviewed & Not Pertinent Patient has suicidal ideation: No Patient has homicidal ideation: No Renal/ Medical History: Denies: Hx Peritoneal Dialysis GI Medical History: Reports: Hx Gastroesophageal Reflux Disease Psychiatric Medical History: Reports: Hx Anxiety, Hx Depression - PTSD, anxiety , Hx Post Traumatic Stress Disorder Past Surgical History: Reports: Hx Oral Surgery, Hx Tonsillectomy - Immunizations Hx Diphtheria, Pertussis, Tetanus Vaccination: Yes Review of Systems - Review of Systems Notes: Constitutional: Negative for fever. HENT: Negative for sore throat. Eyes: Negative for visual changes. Cardiovascular: Positive for chest pain Respiratory: Negative for shortness of breath. Gastrointestinal: Negative for abdominal pain, vomiting or diarrhea. Genitourinary: Negative for dysuria. Musculoskeletal: Negative for back pain. Skin: Negative for rash. Neurological: Negative for headaches, weakness or numbness. 10 point ROS negative except as marked above and in HPI. Physical Exam - Vital signs Vitals: Temp Pulse Resp BP Pulse Ox 97.9 F 76 18 157/74 H 96 02/09/18 02:09 02/09/18 02:09 02/09/18 02:09 02/09/18 02:09 02/09/18 02:09 Interpretation: Hypertensive Notes: PHYSICAL EXAMINATION: GENERAL: Well-appearing, well-nourished and in no acute distress. HEAD: Atraumatic, normocephalic. EYES: Pupils equal round and reactive to light, extraocular movements intact, sclera anicteric, conjunctiva are normal. ENT: nares patent, oropharynx clear without exudates. Moist mucous membranes. NECK: Normal range of motion, supple without lymphadenopathy LUNGS: Breath sounds clear to auscultation bilaterally and equal. No wheezes rales or rhonchi. HEART: Regular rate and rhythm without murmurs ABDOMEN: Soft, nontender, normoactive bowel sounds. No guarding, no rebound. No masses appreciated. EXTREMITIES: Normal range of motion, no pitting or edema. No cyanosis. NEUROLOGICAL: No focal neurological deficits. Moves all extremities spontaneously and on command. PSYCH: Normal mood, normal affect. SKIN: Warm, Dry, normal turgor, no rashes or lesions noted. Course - Re-evaluation Re-evalutation: 02/09/18 03:23 Presentation of chest pain in an otherwise well appearing patient. Low clinical suspicion for ACS given clinical history, exam, EKG without ST elevations or depressions, and negative initial troponin. HEART score less than or equal to 3. PE also seems unlikely given clinical history, absence of tachycardia or dyspnea. Patient is PERC criteria negative. CXR without evidence of pneumothorax or pneumonia. No widened mediastinum. Aortic dissection also seems unlikely given history, symmetric pulses, CXR, and vitals. Patient is a history of recurrent chest pain and this appears most consistent with costochondritis versus anxiety. At this time will discharge with return precautions and follow-up recommendations. Verbal discharge instructions given a the bedside and opportunity for questions given. Medication warnings reviewed. Patient is in agreement with this plan and has verbalized understanding of return precautions and the need for primary care follow-up in the next 24-72 hours. - Vital Signs Vital signs: Temp Pulse Resp BP Pulse Ox 97.9 F 76 16 150/80 H 98 02/09/18 02:09 02/09/18 02:09 02/09/18 03:36 02/09/18 03:36 02/09/18 03:36 - Laboratory Result Diagrams: 02/09/18 02:25 02/09/18 02:25 Laboratory results interpreted by me: 02/09/18 02/09/18 02:25 02:25 RBC 5.77 H Hgb 13.4 L MCV 73 L MCH 23.2 L MCHC 31.9 L RDW 15.6 H BUN 22 H Glucose 132 H - Diagnostic Test Radiology reviewed: Image reviewed, Reports reviewed Radiology results interpreted by me: 02/09/18 03:24 Chest x-ray: No acute infiltrate or pneumothorax - EKG Interpretation by Me Additional EKG results interpreted by me: 02/09/18 03:24 Normal sinus rhythm. Rate 74. No ST elevations or depressions. QTC is 426. Discharge - Discharge Clinical Impression: Recurrent chest pain Condition: Good Disposition: HOME, SELF-CARE Additional Instructions: You were seen today for chest pain. The exact cause of your pain is unclear. However, based on your cardiac enzyme testing, chest x-ray, and EKG it does not appear that it is from an immediately life-threatening cause at this time. Please return to emergency department immediately if you have worsening of your chest pain, shortness of breath, vomiting, become unable to exert yourself due to pain or difficulty breathing, you pass out, or have any pain that radiates into your arms, jaw, or back. Please also return if you have any additional symptoms that are concerning to you.
[2018-02-09 03:42] VITALS: BP 150/80
--- NOTE | 2018-02-09 09:12 | EKG REPORT ---
SEVERITY:- ABNORMAL ECG - SINUS RHYTHM LEFT AXIS DEVIATION : Confirmed by: Danae Sahni 09-Feb-2018 09:10:52
== END 2018-02-09 03:44 | disposition home or self-care (01) ==
LOC: ER 02:00
DX: R07.89 Other chest pain (principal); Z88.8 Allergy status to other drugs, medicaments and biological substances; Z88.6 Allergy status to analgesic agent; Z88.5 Allergy status to narcotic agent
CPT/HCPCS: 36415; 71045; 80048; 84484; 85025; 93005; 93010; 99285

== ENCOUNTER 2018-05-08 18:12 | Emergency (ER) | payer OTHER, MEDICARE ==
--- NOTE | 2018-05-08 18:52 | ER Document Report ---
ED General - General Chief Complaint: Chest Pain Stated Complaint: COUGH,SORE THROAT,VOMITING Time Seen by Provider: 05/08/18 18:43 Notes: The patient is a 32-year-old male, past medical history PTSD, anxiety, seasonal allergies, presents with 4 days of nasal congestion, sore throat, dry cough and chest pain when he coughs. His kids also have similar symptoms. Denies difficulty swallowing, fevers, neck stiffness or hemoptysis. TRAVEL OUTSIDE OF THE [place] IN LAST 30 DAYS: No - Related Data Allergies/Adverse Reactions: cyclobenzaprine HCl [From Flexeril] Allergy (Verified 05/08/18 18:40) ibuprofen [From Motrin] Allergy (Verified 05/08/18 18:40) ketorolac tromethamine [From Toradol] Allergy (Verified 05/08/18 18:40) lorazepam [From Ativan] Allergy (Verified 05/08/18 18:40) tramadol [Tramadol] Allergy (Verified 05/08/18 18:40) Past Medical History - General Information source: Patient - Social History Smoking Status: Never Smoker Chew tobacco use (# tins/day): No Frequency of alcohol use: Rare Drug Abuse: None Family History: Reviewed & Not Pertinent Patient has suicidal ideation: No Patient has homicidal ideation: No Renal/ Medical History: Denies: Hx Peritoneal Dialysis GI Medical History: Reports: Hx Gastroesophageal Reflux Disease Psychiatric Medical History: Reports: Hx Anxiety, Hx Depression - PTSD, anxiety , Hx Post Traumatic Stress Disorder Past Surgical History: Reports: Hx Oral Surgery, Hx Tonsillectomy - Immunizations Hx Diphtheria, Pertussis, Tetanus Vaccination: Yes Review of Systems - Review of Systems Notes: REVIEW OF SYSTEMS: CONSTITUTIONAL: -fevers, -chills EENT: -eye pain, -difficulty swallowing, +nasal congestion, +sore throat CARDIOVASCULAR: +chest pain when coughing, -syncope. RESPIRATORY: +cough, -SOB GASTROINTESTINAL: -abdominal pain, -nausea, -vomiting, -diarrhea GENITOURINARY: -dysuria, -hematuria MUSCULOSKELETAL: -back pain, -neck pain SKIN: -rash or skin lesions. HEMATOLOGIC: -easy bruising or bleeding. LYMPHATIC: -swollen, enlarged glands. NEUROLOGICAL: -altered mental status or loss of consciousness, -headache, - neurologic symptoms PSYCHIATRIC: -anxiety, -depression. ALL OTHER SYSTEMS REVIEWED AND NEGATIVE. Physical Exam - Vital signs Vitals: Temp Pulse Resp BP Pulse Ox 98.9 F 83 16 158/89 H 96 05/08/18 18:31 05/08/18 18:31 05/08/18 18:31 05/08/18 18:31 05/08/18 18:31 - Notes Notes: PHYSICAL EXAMINATION: GENERAL: No acute distress. HEAD: Atraumatic, normocephalic. EYES: Pupils equal round and reactive to light, extraocular movements intact, sclera anicteric, conjunctiva are normal. ENT: nares patent, swollen nasal turbinates, oropharynx clear without exudates. Cobblestoning in posterior pharynx. Moist mucous membranes. NECK: Normal range of motion, supple without lymphadenopathy LUNGS: Breath sounds clear to auscultation bilaterally and equal. No wheezes rales or rhonchi. HEART: Regular rate and rhythm without murmurs ABDOMEN: Soft, nontender, normoactive bowel sounds. No guarding, no rebound. No masses appreciated. EXTREMITIES: Normal range of motion, no pitting or edema. No cyanosis. NEUROLOGICAL: Cranial nerves grossly intact. Normal speech, normal gait. Normal sensory and motor exams. PSYCH: Normal mood, normal affect. SKIN: Warm, Dry, normal turgor, no rashes or lesions noted. Course - Re-evaluation Re-evalutation: Patient is in no respiratory distress. Chest x-ray does not show any focal infiltrates and his EKG does not show any signs of active ischemia. His HEART score is less than 3. Many of his symptoms are related to allergic rhinitis and a URI. Instructed him about beginning antihistamines and nasal steroids with follow-up at his primary care physician. Given strict return precautions and he understands. - Vital Signs Vital signs: Temp Pulse Resp BP Pulse Ox 98.9 F 80 16 158/89 H 96 05/08/18 18:31 05/08/18 18:48 05/08/18 18:31 05/08/18 18:31 05/08/18 18:48 - Diagnostic Test Radiology reviewed: Image reviewed, Reports reviewed Radiology results interpreted by me: CXR: NAD - EKG Interpretation by Me EKG shows normal: Sinus rhythm, [place], Intervals, QRS Complexes, ST-T Waves Rate: Normal Discharge - Discharge Clinical Impression: Sinus congestion, Cough Allergic rhinitis Qualifiers: Allergic rhinitis trigger: unspecified Allergic rhinitis seasonality: unspecified seasonality Qualified Code(s): J30.9 - Allergic rhinitis, unspecified Chest pain Qualifiers: Chest pain type: unspecified Qualified Code(s): R07.9 - Chest pain, unspecified Condition: Stable Disposition: HOME, SELF-CARE Additional Instructions: Many of your symptoms may be related to allergic rhinitis. Take Zyrtec and use Flonase to help with your symptoms. Follow-up with your primary care physician for further evaluation and treatment. CHEST PAIN OF UNCLEAR CAUSE: The exact cause of your chest pain isn't clear. Fortunately, there is no evidence of a dangerous medical condition. Further testing may be required to find the source of the pain. Most often, we find that this pain is coming from the chest wall -- the muscles or rib joints in the chest. But chest pain can come from the lung and lung lining, the esophagus, the heart valves or heart lining, and even the stomach or gallbladder. Rest. Eat lightly until the pain is gone. We may prescribe medicine for pain and inflammation. You should call the physician immediately if the pain radiates to the shoulder, jaw or arms; if you start to run a fever or develop a cough; or if you develop shortness of breath, or other new or alarming symptoms. NORMAL EXAM AND WORKUP: At this time, your examination and workup show no significant abnormality. No significant abnormal physical findings were noted. All laboratory, EKG, and imaging (x-ray, CT scans, ultrasound) studies that were ordered show no significant abnormality. Although your examination and all studies that were ordered showed no significant abnormal finding, there are no examinations and no studies that are 100% accurate. There is always the possibility that some abnormality could exist and not be detected with physical examination or within the limits and capabilities of laboratory and other studies. You should return or follow up as you were instructed on your visit today for further evaluation if your symptoms do not resolve. CHEST WALL PAIN: Your chest pain may be coming from the chest wall. This is often caused by straining the muscles or joints in the chest during physical activity, direct trauma, coughing, or vigorous vomiting. Persons with arthritis are especially prone to this type of pain, due to inflammation of the cartilage joints near the breast bone. Occasionally, no cause can be found. Rest from strenuous physical activity. This kind of chest pain is usually made worse by movement of the chest. Depending on the symptoms, we may prescribe medicine for pain, muscle relaxation, and antiinflammatory effects. If the pain is new, and seems to be due to muscle strain, cold packs can help. Otherwise, apply gentle warmth to the painful area for 15 minutes every hour or two. You should call contact the doctor immediately if things change. Further evaluation is needed if you develop a fever or cough, if the nature of the pain changes, or if you become short of breath. FOLLOW-UP CARE: If you have been referred to a physician for follow-up care, call the physician s office for an appointment as you were instructed or within the next two days. If you experience worsening or a significant change in your symptoms, notify the physician immediately or return to the Emergency Department at any time for re-evaluation. Prescriptions: Cetirizine HCl [Zyrtec 10 mg Tablet] 1 tab PO DAILY #20 tablet Fluticasone Propionate [Flonase Nasal [place] 50 Mcg/[place] 16 gm] 1 spray NASL Q12 #1 inhaler Forms: Elevated Blood Pressure Referrals: [facility] [Outside] - Follow up as needed
[2018-05-08 20:27] VITALS: BP 146/87
--- NOTE | 2018-05-08 20:39 | RADIOLOGY REPORT (SQ) ---
EXAM DESCRIPTION: CHEST 2 VIEWS COMPLETED DATE/TIME: 05/08/2018 7:03 pm REASON FOR STUDY: cough, chest pain COMPARISON: None. EXAM PARAMETERS: NUMBER OF VIEWS: two views TECHNIQUE: Digital Frontal and Lateral radiographic views of the chest acquired. RADIATION DOSE: NA LIMITATIONS: none FINDINGS: LUNGS AND PLEURA: No opacities, masses or pneumothorax. No pleural effusion. MEDIASTINUM AND HILAR STRUCTURES: No masses or contour abnormalities. HEART AND VASCULAR STRUCTURES: Heart normal size. No evidence for failure. BONES: No acute findings. HARDWARE: None in the chest. OTHER: No other significant finding. IMPRESSION: NO ACUTE RADIOGRAPHIC FINDING IN THE CHEST. TECHNICAL DOCUMENTATION: JOB ID: [id number] [email or web address]- All Rights Reserved Reading location - IP/workstation name: [email or web address]
--- NOTE | 2018-05-09 09:35 | EKG REPORT ---
SEVERITY:- OTHERWISE NORMAL ECG - SINUS RHYTHM LEFT AXIS DEVIATION ST ELEV, PROBABLE NORMAL EARLY REPOL PATTERN : Confirmed by: Danae Sahni 09-May-2018 09:34:39
== END 2018-05-08 20:25 | disposition home or self-care (01) ==
LOC: ER 18:12
DX: J30.9 Allergic rhinitis, unspecified (principal); R09.81 Nasal congestion; J02.9 Acute pharyngitis, unspecified; R05 Cough; R07.89 Other chest pain; Z88.8 Allergy status to other drugs, medicaments and biological substances; Z88.6 Allergy status to analgesic agent; Z88.5 Allergy status to narcotic agent
CPT/HCPCS: 71046; 93005; 93010; 99285

== ENCOUNTER 2018-06-14 03:03 | Emergency (ER) | payer OTHER, MEDICARE ==
[2018-06-14] MEDS ORDERED: ASPIRIN 81 MG TABLET, CHEWABLE PO ONE (03:56)
[2018-06-14] MEDS ORDERED: METOCLOPRAMIDE HCL ORAL SOLN 10 MG/10 ML UDCUP PO ONE (04:16)
[2018-06-14] MEDS ORDERED: LIDOCAINE 2% VISCOUS SOLN 20 ML UDCUP PO ONE (04:16)
[2018-06-14] MEDS ORDERED: MAG HYDROX/AL HYDROX/SIMETH SUSP 30 ML UDCUP PO ONE (04:16)
[2018-06-14] MEDS ORDERED: ONDANSETRON 4 MG TAB.RAPDIS PO ONE (04:17)
[2018-06-14] MEDS ORDERED: CLONAZEPAM 1 MG TABLET PO ONE (04:19)
--- NOTE | 2018-06-14 04:20 | ER Document Report ---
ED General - General Chief Complaint: Chest Pain Stated Complaint: CHEST PAIN Time Seen by Provider: 06/14/18 04:03 Mode of Arrival: Ambulatory Information source: Patient Notes: 32-year-old male with PTSD, anxiety, chronic chest pain, reflux presents with complaint of chest pain that started 2 weeks prior to arrival. Patient states that 2 weeks ago he experienced bilateral chest achiness that has been constant. He states 1 week ago he experienced substernal chest pain that has also been constant. Patient has had associated nausea, abdominal pain. He does state that he has been out of his chronic medication of clonazepam for the last 5 days. Patient does admit to associated nonproductive cough. TRAVEL OUTSIDE OF THE [place] IN LAST 30 DAYS: No - HPI Onset: Other Onset/Duration: Constant, Persistent Quality of pain: Achy Severity: Mild Associated symptoms: Nonproductive cough, Sinus pain/drainage Exacerbated by: Denies Relieved by: Denies Similar symptoms previously: Yes Recently seen / treated by doctor: Yes - Related Data Allergies/Adverse Reactions: cyclobenzaprine HCl [From Flexeril] Allergy (Verified 06/14/18 03:08) ibuprofen [From Motrin] Allergy (Verified 06/14/18 03:08) ketorolac tromethamine [From Toradol] Allergy (Verified 06/14/18 03:08) lorazepam [From Ativan] Allergy (Verified 06/14/18 03:08) tramadol [Tramadol] Allergy (Verified 06/14/18 03:08) Past Medical History - General Information source: Patient, [facility] Records - Social History Smoking Status: Never Smoker Frequency of alcohol use: None Drug Abuse: None Family History: Reviewed & Not Pertinent Renal/ Medical History: Denies: Hx Peritoneal Dialysis GI Medical History: Reports: Hx Gastroesophageal Reflux Disease Psychiatric Medical History: Reports: Hx Anxiety, Hx Depression - PTSD, anxiety , Hx Post Traumatic Stress Disorder Past Surgical History: Reports: Hx Oral Surgery, Hx Tonsillectomy - Immunizations Hx Diphtheria, Pertussis, Tetanus Vaccination: Yes Physical Exam - Vital signs Vitals: Temp Pulse Resp BP Pulse Ox 97.7 F 70 18 129/85 H 98 06/14/18 06:30 06/14/18 06:30 06/14/18 06:30 06/14/18 06:30 06/14/18 06:30 Course - Re-evaluation Re-evalutation: Laboratory 07/27/18 07/27/18 07/27/18 04:36 04:36 04:36 WBC 6.9 RBC 5.67 H Hgb 13.2 L Hct 40.5 MCV 71 L MCH 23.2 L MCHC 32.5 RDW 16.5 H Plt Count 278 Seg Neutrophils % 48.7 Lymphocytes % 35.5 Monocytes % 9.7 Eosinophils % 5.1 Basophils % 1.0 Absolute Neutrophils 3.3 Absolute Lymphocytes 2.4 Absolute Monocytes 0.7 Absolute Eosinophils 0.4 Absolute Basophils 0.1 Sodium 144.3 Potassium 4.1 Chloride 106 Carbon Dioxide 24 Anion Gap 14 BUN 15 Creatinine 0.88 Est GFR ( Amer) > 60 Est GFR (Non-Af Amer) > 60 Glucose 111 H Calcium 9.6 Total Bilirubin 0.5 Direct Bilirubin 0.2 Neonat Total Bilirubin Not Reportable Neonat Direct Bilirubin Not Reportable Neonat Indirect Bili Not Reportable AST 29 ALT 53 Alkaline Phosphatase 41 Creatine Kinase 415 H CK-MB (CK-2) 0.96 Troponin I < 0.012 Total Protein 7.1 Albumin 4.3 Chest X-Ray 06/14/18 03:57 IMPRESSION: 1. No acute pulmonary process identified. 32-year-old male presents with complaint of chest pain that has been ongoing for weeks. Patient has been seen multiple times for chest pain. Upon arrival vitals were reviewed. Patient is afebrile, normotensive and not hypoxic. EKG was obtained which showed the patient be in normal sinus rhythm at a rate of 70. QTc 423. Previous medical records reviewed. Heart score 2. Patient has had a recent stress test that was reportedly normal. Patient did receive aspirin, a GI cocktail, his home dose of clonazepam and Reglan during his ED course. On reevaluation patient states that he feels much better. 06/14/18 05:34 Patient found to have an elevated CK which is his baseline. Patient provided the opportunity to ask questions, and express concerns. Discharge instructions discussed. Patient is agreeable with discharge home. Return indications explained and discussed with the patient who displays understanding. Patient encouraged to return to the emergency department immediately with any concerns. - Vital Signs Vital signs: Temp Pulse Resp BP Pulse Ox 97.7 F 70 18 129/85 H 98 06/14/18 06:30 06/14/18 06:30 06/14/18 06:30 06/14/18 06:30 06/14/18 06:30 - Laboratory Result Diagrams: 06/14/18 04:36 06/14/18 04:36 Laboratory results interpreted by me: 06/14/18 06/14/18 04:36 04:36 RBC 5.67 H Hgb 13.2 L MCV 71 L MCH 23.2 L RDW 16.5 H Glucose 111 H Creatine Kinase 415 H - Diagnostic Test Radiology reviewed: Image reviewed, Reports reviewed - EKG Interpretation by Me EKG shows normal: Sinus rhythm Rate: Normal Rhythm: NSR When compared to previous EKG there are: No significant change Discharge - Discharge Clinical Impression: Chest pain Qualifiers: Chest pain type: unspecified Qualified Code(s): R07.9 - Chest pain, unspecified Condition: Good Disposition: HOME, SELF-CARE Instructions: Chest Pain of Unclear Cause ([facility]) Additional Instructions: Please follow-up with your primary care provider. Follow up with your physician tomorrow for further care or return to the ED IMMEDIATELY if symptoms worsen or new concerns occur. If you cannot afford to follow up with your primary care physician a list of low cost clinics have been provided at the end of your discharge papers as well. Prescriptions: Clonazepam 1 mg PO BID #6 tablet Forms: Elevated Blood Pressure
--- NOTE | 2018-06-14 04:29 | RADIOLOGY REPORT (SQ) ---
EXAM DESCRIPTION: XR CHEST 1 VIEW COMPLETED DATE/TME: 06/14/2018 03:57 CLINICAL HISTORY: CHEST PAIN COMPARISON: 05/08/2018 FINDINGS: Single frontal view of the chest. The cardiomediastinal silhouette has normal size and contour. No consolidation, pneumothorax, or pleural effusion. No displaced rib fractures identified. Upper abdominal soft tissues are unremarkable. IMPRESSION: 1. No acute pulmonary process identified.
[2018-06-14 04:50] LABS: ABSOLUTE BASOPHILS # (AUTO) 0.1 10^3/uL (0.0-0.2); ABSOLUTE EOSINOPHILS # (AUTO) 0.4 10^3/uL (0.0-0.6); ABSOLUTE LYMPHOCYTES (AUTO) 2.4 10^3/uL (0.5-4.7); ABSOLUTE MONOCYTES (AUTO) 0.7 10^3/uL (0.1-1.4); ABSOLUTE NEUT (AUTO) 3.3 10^3/uL (1.7-8.2); EOSINOPHILS % (AUTO) 5.1 % (0-6); HEMATOCRIT 40.5 % (37.9-51.0); HEMOGLOBIN 13.2 g/dL (13.5-17.0); LYMPHOCYTES % (AUTO) 35.5 % (13-45); MEAN CORPUSCULAR HEMOGLOBIN 23.2 pg (27.0-33.4); MEAN CORPUSCULAR HGB CONC 32.5 g/dL (32.0-36.0); MEAN CORPUSCULAR VOLUME 71 fl (80-97); MONOCYTES % (AUTO) 9.7 % (3-13); PLATELET COUNT 278 10^3/uL (150-450); RED BLOOD COUNT 5.67 10^6/uL (4.35-5.55); RED CELL DISTRIBUTION WIDTH 16.5 % (11.5-14.0); SEGMENTED NEUTROPHILS % (AUTO) 48.7 % (42-78); TOTAL CELLS COUNTED % (AUTO) 100 %; WHITE BLOOD COUNT 6.9 10^3/uL (4.0-10.5)
[2018-06-14] MEDS ORDERED: METOCLOPRAMIDE HCL INJ/PF 10 MG/2 ML SDV ONE (05:03)
[2018-06-14 05:05] LABS: ALANINE AMINOTRANSFERASE 53 U/L (21-72); ALBUMIN 4.3 g/dL (3.5-5.0); ALKALINE PHOSPHATASE 41 U/L (38-126); ANION GAP 14 (5-19); ASPARTATE AMINO TRANSFERASE 29 U/L (17-59); BILIRUBIN,DIRECT 0.2 mg/dL (0.0-0.4); BILIRUBIN,TOTAL 0.5 mg/dL (0.2-1.3); BLOOD UREA NITROGEN 15 mg/dL (7-20); CALCIUM 9.6 mg/dL (8.4-10.2); CARBON DIOXIDE 24 mmol/L (22-30); CHLORIDE 106 mmol/L (98-107); CREATINE KINASE 415 U/L (55-170); GLUCOSE 111 mg/dL (75-110); POTASSIUM 4.1 mmol/L (3.6-5.0); SODIUM 144.3 mmol/L (137-145); TOTAL PROTEIN 7.1 g/dL (6.3-8.2)
[2018-06-14 05:13] LABS: CREATINE KINASE MB 0.96 ng/mL (<4.55)
[2018-06-14 05:19] LABS: TROPONIN I < 0.012 ng/mL
[2018-06-14 07:16] VITALS: BP 129/85
--- NOTE | 2018-06-14 09:16 | EKG REPORT ---
SEVERITY:- OTHERWISE NORMAL ECG - SINUS RHYTHM LEFT AXIS DEVIATION : Confirmed by: Marcy Haskins MD 14-Jun-2018 09:16:05
== END 2018-06-14 06:30 | disposition home or self-care (01) ==
LOC: ER 03:03
DX: R07.89 Other chest pain (principal); R74.8 Abnormal levels of other serum enzymes; R11.0 Nausea; R10.9 Unspecified abdominal pain; R05 Cough; J34.89 Other specified disorders of nose and nasal sinuses; Z88.8 Allergy status to other drugs, medicaments and biological substances; Z88.6 Allergy status to analgesic agent; Z87.19 Personal history of other diseases of the digestive system
CPT/HCPCS: 93005; 99285; 36415; 82553; 82550; 85025; 80053; 84484; 71045; 93010; S0119; J3490

== ENCOUNTER 2019-02-20 03:34 | Emergency (ER) | payer MEDICARE, OTHER ==
--- NOTE | 2019-02-20 06:04 | ER Document Report ---
ED General - General Chief Complaint: Chest Pain Stated Complaint: CHEST PAIN Time Seen by Provider: 02/20/19 06:03 Primary Care Provider: [facility] [Provider Group] - Follow up tomorrow Notes: Patient is a 33-year-old male that presents to the emergency department for chief complaint of chest pain. The patient reports that the pain started earlier this week. The currently rate the pain as 4 out of 10, and described as sharp pain, going to the left arm with some nausea. They have had associated nausea. Denies any shortness of breath or diaphoresis. Denies any risk factors for heart disease such as family history, hypertension, hyperlipidemia, or smoking history. Patient reports that the pain is eased off, he still has some mild nausea, he states he does have anxiety, is not sure if this is related, he reports having a stress test in the past, and was told it was normal at that time. He is supposed to follow-up with his primary care physician today. Past Medical History: Anxiety, PTSD Past Surgical History: Tonsillectomy, ear surgery Social History: Denies tobacco, alcohol or drug use. Family History: Reviewed and noncontributory for presenting illness Allergies: Reviewed, see documented allergy list. REVIEW OF SYSTEMS: Other than noted above, the 12 point review of systems was reviewed with the patient and were negative, all pertinent findings are included in the HPI. PHYSICAL EXAMINATION: Vital signs reviewed, nursing noted reviewed. GENERAL: Well-appearing, well-nourished and in no acute distress. HEAD: Atraumatic, normocephalic. EYES: Eyes appear normal, extraocular movements intact, sclera anicteric, conjunctiva are normal. ENT: nares patent, oropharynx clear without exudates. Moist mucous membranes. NECK: Normal range of motion, supple without lymphadenopathy LUNGS: Breath sounds clear to auscultation bilaterally and equal. No wheezes rales or rhonchi. HEART: Regular rate and rhythm without murmurs ABDOMEN: Soft, obese, nontender, normoactive bowel sounds. No rebound, guarding, or rigidity. No masses appreciated. EXTREMITIES: Nontender, good range of motion, no pitting or edema. NEUROLOGICAL: No focal neurological deficits. Moves all extremities spontaneously Motor and sensory grossly intact on exam. PSYCH: Normal mood, normal affect. SKIN: Warm, Dry, normal turgor, no rashes or lesions noted on exposed skin TRAVEL OUTSIDE OF THE [place] IN LAST 30 DAYS: No - Related Data Allergies/Adverse Reactions: cyclobenzaprine HCl [From Flexeril] Allergy (Verified 06/14/18 03:08) ibuprofen [From Motrin] Allergy (Verified 06/14/18 03:08) ketorolac tromethamine [From Toradol] Allergy (Verified 06/14/18 03:08) lorazepam [From Ativan] Allergy (Verified 06/14/18 03:08) tramadol [Tramadol] Allergy (Verified 06/14/18 03:08) Past Medical History - Social History Smoking Status: Unknown if Ever Smoked Family History: Reviewed & Not Pertinent Patient has suicidal ideation: No Patient has homicidal ideation: No Renal/ Medical History: Denies: Hx Peritoneal Dialysis GI Medical History: Reports: Hx Gastroesophageal Reflux Disease Psychiatric Medical History: Reports: Hx Anxiety, Hx Depression - PTSD, anxiety, Hx Post Traumatic Stress Disorder Past Surgical History: Reports: Hx Oral Surgery, Hx Tonsillectomy - Immunizations Hx Diphtheria, Pertussis, Tetanus Vaccination: Yes Physical Exam - Vital signs Vitals: Resp BP Pulse Ox 19 130/87 H 96 02/20/19 04:29 02/20/19 04:29 02/20/19 04:29 Course - Re-evaluation Re-evalutation: Patient seen and examined vital signs reviewed. Patient was evaluated and treated as appropriate for the patient's presenting symptoms and complaint, with consideration of any critical or life threatening conditions that may be associated with their obtained history and exam as noted above. EKG was reviewed, and unchanged from prior, no signs of acute ischemia, as noted, chest x-ray was negative for any signs of acute cardia pulmonary process The patient was re-evaluated and was stable, chest pain-free, given patient's age under 35, and lack of risk factors for heart disease, he is considered extremely low risk, I did offer blood work to him, he stated he rather be discharged home, he does have a follow-up appointment today with his primary care, I did offer that if he was concerned or he had worsening pain, he can always return to the emergency department to be reevaluated, and have troponin testing which again I do not believe is necessary at this time given the patient's atypical presentation, and lack of risk factors and age under 35. Evaluation was most consistent with chest pain Plan of care was discussed with the patient at this point, after careful consideration I feel that that patient can be discharged from the emergency department, the patient was educated treatments and reasons to return to the emergency department based on their presumed diagnosis as noted above, they were advised to followup with a primary care physician in 2-3 days. Patient was agreeable to plan of care. *Note is created using voice recognition software and may contain spelling, syntax or grammatical errors. Chest X-Ray 02/20/19 06:03 IMPRESSION: No evidence of acute intrathoracic disease. - Vital Signs Vital signs: Temp Pulse Resp BP Pulse Ox 97.7 F 74 16 139/75 H 96 02/20/19 07:42 02/20/19 07:42 02/20/19 07:42 02/20/19 07:42 02/20/19 07:42 - EKG Interpretation by Me Additional EKG results interpreted by me: EKG demonstrates normal sinus rhythm with a ventricular rate of 71 bpm, left axis deviation, normal intervals, no ST elevation or T wave abnormalities noted, this is compared with a prior EKG from 06/14/2018, without significant change. Discharge - Discharge Clinical Impression: Chest pain Qualifiers: Chest pain type: unspecified Qualified Code(s): R07.9 - Chest pain, unspecified Condition: Stable Disposition: HOME, SELF-CARE Instructions: Chest Wall Pain ([facility]), Chest Pain of Unclear Cause ([facility]) Additional Instructions: Please keep your appointment today, and discussed this with your primary care, and if your symptoms worsen or you still have further concerns, please return to the emergency department later today for reevaluation. Referrals: [facility] [Provider Group] - Follow up tomorrow
[2019-02-20] MEDS ORDERED: ONDANSETRON 4 MG TAB.RAPDIS PO ONE (06:14)
--- NOTE | 2019-02-20 07:07 | RADIOLOGY REPORT (SQ) ---
EXAM DESCRIPTION: X-ray single view chest. CLINICAL HISTORY: 33 years Male, chest pain COMPARISON: 05/20/2017 TECHNIQUE: Single portable x-ray view of the chest performed on 02/20/2019 at 6:38 AM FINDINGS: The lungs are well expanded and are clear. There is no evidence of a pneumothorax. The cardiac silhouette is normal in size and configuration. The mediastinal contours are normal. No acute osseous abnormality is identified. No focal soft tissue abnormalities are seen. Lines and tubes: None. IMPRESSION: No evidence of acute intrathoracic disease.
[2019-02-20 07:44] VITALS: BP 139/75
--- NOTE | 2019-02-20 07:52 | EKG REPORT ---
SEVERITY:- ABNORMAL ECG - SINUS RHYTHM LEFT AXIS DEVIATION - [facility] : Confirmed by: Alok Pascual MD 20-Feb-2019 07:51:44
== END 2019-02-20 07:44 | disposition home or self-care (01) ==
LOC: ER 03:34
DX: R07.9 Chest pain, unspecified (principal); M79.602 Pain in left arm; R11.0 Nausea
CPT/HCPCS: 93005; 99283; 71045; 93010; A9270; S0119

== ENCOUNTER 2019-05-16 09:26 | Emergency (ER) | payer MEDICARE ==
[2019-05-16] MEDS ORDERED: ASPIRIN 81 MG TABLET, CHEWABLE PO ONE (10:05)
--- NOTE | 2019-05-16 10:07 | ER Document Report ---
ED Medical Screen (RME) - General Chief Complaint: Chest Pain Stated Complaint: CHEST PAIN Time Seen by Provider: 05/16/19 10:04 Mode of Arrival: Ambulatory Information source: Patient Notes: 33-year-old male presented to ED for complaint of chest pain x3 days. He states it comes and goes. He states he had pain down his left arm with numbness to the arm and hand. He states his left arm was swollen but that is gone down but it still continues to hurt. He does have a history of anxiety and PTSD. Denies any cardiac history. Does have a history of a TNA ear tubes and dental surgeries. Patient is alert oriented respirations regular and speaks in full sentences. He denies smoking drinking or doing any street drugs. I have asked patient has he had aspirin in the past and tolerated it or does he have an allergy to aspirin. He states he can take aspirin without problems. I have greeted and performed a rapid initial assessment of this patient. A comprehensive ED assessment and evaluation of the patient, analysis of test results and completion of medical decision making process will be conducted by an additional ED providers. Dictation of this chart was performed using voice recognition software; therefore, there may be some unintended grammatical errors. TRAVEL OUTSIDE OF THE [place] IN LAST 30 DAYS: No - Related Data Allergies/Adverse Reactions: cyclobenzaprine HCl [From Flexeril] Allergy (Verified 05/16/19 09:27) ibuprofen [From Motrin] Allergy (Verified 05/16/19 09:27) ketorolac tromethamine [From Toradol] Allergy (Verified 05/16/19 09:27) lorazepam [From Ativan] Allergy (Verified 05/16/19 09:27) tramadol [Tramadol] Allergy (Verified 05/16/19 09:27) Past Medical History Renal/ Medical History: Denies: Hx Peritoneal Dialysis GI Medical History: Reports: Hx Gastroesophageal Reflux Disease Psychiatric Medical History: Reports: Hx Anxiety, Hx Depression - PTSD, anxiety, Hx Post Traumatic Stress Disorder Past Surgical History: Reports: Hx Oral Surgery, Hx Tonsillectomy - Immunizations Hx Diphtheria, Pertussis, Tetanus Vaccination: Yes Physical Exam - Vital signs Vitals: Temp Pulse Resp BP Pulse Ox 97.3 F 57 L 16 150/95 H 98 05/16/19 09:39 05/16/19 09:39 05/16/19 09:39 05/16/19 09:39 05/16/19 09:39 Course - Vital Signs Vital signs: Temp Pulse Resp BP Pulse Ox 97.3 F 57 L 16 150/95 H 98 05/16/19 09:39 05/16/19 09:39 05/16/19 09:39 05/16/19 09:39 05/16/19 09:39
--- NOTE | 2019-05-16 10:40 | RADIOLOGY REPORT (SQ) ---
EXAM DESCRIPTION: CHEST 2 VIEWS COMPLETED DATE/TIME: 05/16/2019 10:32 am REASON FOR STUDY: Chest pain COMPARISON: 02/20/2019. EXAM PARAMETERS: NUMBER OF VIEWS: two views TECHNIQUE: Digital Frontal and Lateral radiographic views of the chest acquired. RADIATION DOSE: NA LIMITATIONS: none FINDINGS: LUNGS AND PLEURA: No opacities, masses or pneumothorax. No pleural effusion. MEDIASTINUM AND HILAR STRUCTURES: No masses or contour abnormalities. HEART AND VASCULAR STRUCTURES: Heart normal size. No evidence for failure. BONES: No acute findings. HARDWARE: None in the chest. OTHER: No other significant finding. IMPRESSION: NO ACUTE RADIOGRAPHIC FINDING IN THE CHEST. TECHNICAL DOCUMENTATION: JOB ID: [id number] [employer]- All Rights Reserved Reading location - IP/workstation name: [email or web address]
[2019-05-16 10:48] LABS: ABSOLUTE EOSINOPHILS # (AUTO) 0.3 10^3/uL (0.0-0.6); ABSOLUTE LYMPHOCYTES (AUTO) 2.3 10^3/uL (0.5-4.7); ABSOLUTE MONOCYTES (AUTO) 0.7 10^3/uL (0.1-1.4); ABSOLUTE NEUT (AUTO) 3.4 10^3/uL (1.7-8.2); BASOPHILS % (AUTO) 0.7 % (0-2); HEMATOCRIT 42.4 % (37.9-51.0); HEMOGLOBIN 13.7 g/dL (13.5-17.0); LYMPHOCYTES % (AUTO) 33.6 % (13-45); MEAN CORPUSCULAR HEMOGLOBIN 23.3 pg (27.0-33.4); MEAN CORPUSCULAR HGB CONC 32.2 g/dL (32.0-36.0); MEAN CORPUSCULAR VOLUME 73 fl (80-97); MONOCYTES % (AUTO) 10.6 % (3-13); PLATELET COUNT 259 10^3/uL (150-450); RED BLOOD COUNT 5.86 10^6/uL (4.35-5.55); RED CELL DISTRIBUTION WIDTH 16.2 % (11.5-14.0); SEGMENTED NEUTROPHILS % (AUTO) 50.1 % (42-78); TOTAL CELLS COUNTED % (AUTO) 100 %; WHITE BLOOD COUNT 6.8 10^3/uL (4.0-10.5)
[2019-05-16 11:11] LABS: ALANINE AMINOTRANSFERASE 60 U/L (21-72); ALBUMIN 4.5 g/dL (3.5-5.0); ALKALINE PHOSPHATASE 31 U/L (38-126); ANION GAP 9 (5-19); ASPARTATE AMINO TRANSFERASE 31 U/L (17-59); BILIRUBIN,DIRECT 0.2 mg/dL (0.0-0.4); BILIRUBIN,TOTAL 0.5 mg/dL (0.2-1.3); BLOOD UREA NITROGEN 15 mg/dL (7-20); CALCIUM 9.5 mg/dL (8.4-10.2); CARBON DIOXIDE 27 mmol/L (22-30); CHLORIDE 103 mmol/L (98-107); CREATINE KINASE 325 U/L (55-170); GLUCOSE 101 mg/dL (75-110); POTASSIUM 4.3 mmol/L (3.6-5.0); SODIUM 138.9 mmol/L (137-145); TOTAL PROTEIN 7.4 g/dL (6.3-8.2)
[2019-05-16 11:20] LABS: CREATINE KINASE MB 0.65 ng/mL (<4.55)
[2019-05-16 11:22] LABS: TROPONIN I < 0.012 ng/mL
--- NOTE | 2019-05-16 12:33 | RADIOLOGY REPORT (SQ) ---
EXAM DESCRIPTION: VENOUS UNILATERAL UPPER COMPLETED DATE/TIME: 05/16/2019 12:24 pm REASON FOR STUDY: Pain and swelling to the left arm COMPARISON: None. TECHNIQUE: Dynamic and static garcia scale and color images acquired of the left arm venous system. Se lected spectral images acquired with additional compression and augmentation maneuvers. Images store d on PACS. LIMITATIONS: None. FINDINGS: LEFT INTERNAL JUGULAR VEIN: Normal phasicity, compression, augmentation. No visualized echogenic material on garcia scale. No defects on color images. Comparison opposite side normal. SUBCLAVIAN VEIN: Normal compression, augmentation. No visualized echogenic material on garcia scale. No defects on color images. AXILLARY VEIN: Normal compression, augmentation. No visualized echogenic material on garcia scale. No d efects on color images. BRACHIAL VEIN: Normal compression, augmentation. No visualized echogenic material on garcia scale. No d efects on color images. BASILIC VEIN: Normal compression, augmentation. No visualized echogenic material on garcia scale. No de fects on color images. CEPHALIC VEIN: Normal compression, augmentation. No visualized echogenic material on garcia scale. No d efects on color images. OTHER: No other significant finding. IMPRESSION: NO EVIDENCE DVT OR SVT LEFT ARM. TECHNICAL DOCUMENTATION: JOB ID: [id number] [employer]- All Rights Reserved Reading location - IP/workstation name: [email or web address]
[2019-05-16 12:40] LABS: APPEARANCE,URINE CLEAR; BILIRUBIN,URINE NEGATIVE (NEGATIVE); COLOR,URINE YELLOW; GLUCOSE, URINE NEGATIVE (NEGATIVE); KETONES,URINE NEGATIVE (NEGATIVE); LEUKOCYTE ESTERASE,URINE NEGATIVE (NEGATIVE); NITRITE,URINE NEGATIVE (NEGATIVE); PROTEIN,URINE NEGATIVE (NEGATIVE); URINE SPECIFIC GRAVITY 1.023; UROBILINOGEN,URINE NEGATIVE mg/dL (<2.0)
[2019-05-16 12:55] LABS: URINE AMPHETAMINES SCREEN NEGATIVE; URINE BARBITURATES SCREEN NEGATIVE; URINE BENZODIAZEPINES SCREEN NEGATIVE; URINE COCAINE SCREEN NEGATIVE; URINE MARIJUANA (THC) SCREEN NEGATIVE; URINE METHADONE SCREEN NEGATIVE; URINE PHENCYCLIDINE SCREEN NEGATIVE
[2019-05-16] MEDS ORDERED: ACETAMINOPHEN 325 MG TABLET PO ONE (13:10)
--- NOTE | 2019-05-16 13:17 | ER Document Report ---
ED General - General Chief Complaint: Chest Pain Stated Complaint: CHEST PAIN Time Seen by Provider: 05/16/19 10:04 Mode of Arrival: Ambulatory TRAVEL OUTSIDE OF THE [place] IN LAST 30 DAYS: No - HPI Notes: 33-year-old male to the emergency department with history of anxiety with co mplaints of left-sided chest pain that radiates into his left chest wall and down the left arm for the past 2 to 3 days. States that the episodes will last several hours and he also notices that when he takes his anxiety medicine the pain tends to go away. When he awoke again this morning the pain was still there and he became concerned. He denies any prior history of heart disease, cocaine abuse, family history of heart disease. He denies any history of high blood pressure. He does have diabetes and he does take oral medications. He admits that recently he has been doing more yard work outside but he does not recall a specific injury. He denies increased pain with big deep breath. He denies cough, fever, blunt force trauma, falls. He does have a history of diabetes. He has had a stress test before and it was negative. He does not smoke. Has worsening pain with exertion, shortness of breath, diaphoresis, nausea or vomiting. Does report that he feels like his left arm has been swollen but it has gotten a little bit better today. He denies any recent travel, history of DVT, recent upper extremity surgery, history of malignancy. - Related Data Allergies/Adverse Reactions: cyclobenzaprine HCl [From Flexeril] Allergy (Verified 05/16/19 09:27) ibuprofen [From Motrin] Allergy (Verified 05/16/19 09:27) ketorolac tromethamine [From Toradol] Allergy (Verified 05/16/19 09:27) lorazepam [From Ativan] Allergy (Verified 05/16/19 09:27) tramadol [Tramadol] Allergy (Verified 05/16/19 09:27) Past Medical History - General Information source: Patient, Relative - Social History Smoking Status: Never Smoker Chew tobacco use (# tins/day): No Frequency of alcohol use: None Drug Abuse: None Family History: Reviewed & Not Pertinent Patient has suicidal ideation: No Patient has homicidal ideation: No Endocrine Medical History: Reports: Hx Diabetes Mellitus Type 2 Renal/ Medical History: Denies: Hx Peritoneal Dialysis GI Medical History: Reports: Hx Gastroesophageal Reflux Disease Psychiatric Medical History: Reports: Hx Anxiety, Hx Depression - PTSD, anxiety, Hx Post Traumatic Stress Disorder Past Surgical History: Reports: Hx Oral Surgery, Hx Tonsillectomy - Immunizations Hx Diphtheria, Pertussis, Tetanus Vaccination: Yes Review of Systems - Review of Systems Constitutional: No symptoms reported. denies: Chills, Diaphoresis, Fever EENT: No symptoms reported Cardiovascular: Chest pain. denies: Palpitations, Heart racing, Syncope, Dizziness, Lightheaded Respiratory: denies: Cough, Hurts to breathe, Short of breath Gastrointestinal: denies: Abdominal pain, Diarrhea, Nausea, Vomiting Genitourinary: denies: Frequency, Flank pain Musculoskeletal: Joint swelling - Left arm swelling Skin: No symptoms reported Neurological/Psychological: No symptoms reported -: Yes All other systems reviewed and negative Physical Exam - Vital signs Vitals: Temp Pulse Resp BP Pulse Ox 97.3 F 57 L 16 150/95 H 98 05/16/19 09:39 05/16/19 09:39 05/16/19 09:39 05/16/19 09:39 05/16/19 09:39 Selected Entries 05/16/19 13:02 Temperature 98.5 F Respiratory 18 Rate Blood Pressure 123/78 Blood Pressure 93 Mean O2 Sat by Pulse 98 Oximetry - General General appearance: Appears well In distress: None - HEENT Head: Normocephalic, Atraumatic Eyes: Normal Pupils: PERRL - Respiratory Respiratory status: No respiratory distress Chest status: Nontender Breath sounds: Normal Chest palpation: Normal - Cardiovascular Rhythm: Regular Heart sounds: Normal auscultation Murmur: No - Abdominal Inspection: Normal Distension: No distension Bowel sounds: Normal Tenderness: Nontender Organomegaly: No organomegaly - Extremities General upper extremity: Normal inspection, Nontender, Normal color, Normal ROM, Normal temperature, Other - No left upper arm edema is appreciated on my exam, no erythema, no warmth, no skin changes, no evidence of any superimposed infection General lower extremity: Normal inspection, Nontender, Normal color, Normal ROM, Normal temperature, Normal weight bearing. No: Toni's sign - Neurological Neuro grossly intact: Yes Cognition: Normal Orientation: AAOx4 Lisa Coma Scale Eye Opening: Spontaneous Lisa Coma Scale Verbal: Oriented Lisa Coma Scale Motor: Obeys Commands Lisa Coma Scale Total: 15 Speech: Normal Motor strength normal: LUE, RUE, LLE, RLE Sensory: Normal - Psychological Associated symptoms: Normal affect, Normal mood - Skin Skin Temperature: Warm Skin Moisture: Dry Skin Color: Normal Course - Vital Signs Vital signs: Temp Pulse Resp BP Pulse Ox 98.5 F 57 L 18 123/78 98 05/16/19 13:02 05/16/19 09:39 05/16/19 13:02 05/16/19 13:02 05/16/19 13:02 - Laboratory Result Diagrams: 05/16/19 10:40 05/16/19 10:40 Laboratory results interpreted by me: 05/16/19 05/16/19 10:40 10:40 RBC 5.86 H MCV 73 L MCH 23.3 L RDW 16.2 H Alkaline Phosphatase 31 L Creatine Kinase 325 H - Diagnostic Test Radiology reviewed: Image reviewed, Reports reviewed - Noted negative chest x- ray, noted negative Doppler for upper extremity DVT in the left arm - EKG Interpretation by Me EKG shows normal: Sinus rhythm Rate: Normal - rate of 65 Rhythm: NSR When compared to previous EKG there are: No significant change Additional EKG results interpreted by me: 05/16/19 No STEMI, no ST changes. Unchanged from prior. - Transfer of Care Notes: 05/16/19 Impression: Chest pain -- Ongoing for the past three days. Negative troponin, negative CXR, negative Doppler. Patient would only allow me to give him Tylenol for his pain. He also had ASA. He has a HEART SCORE of 1. His CP has been on going for over 6 hours. Will discharge home, have him follow up with his PCP. Return here if worse at all. he agrees with the plan. Discharge - Discharge Clinical Impression: Chest pain Disposition: HOME, SELF-CARE Instructions: Chest Wall Pain ([facility]) Additional Instructions: [facility]. MAY USE TOPICAL LIDOCAINE PATCH. RETURN IF WORSENING SYMPTOMS. PUSH FLUIDS. Prescriptions: Lidocaine [Lidoderm 5% (700 mg) Transdermal Patch] 1 patch TP DAILY #30 adh..patch
[2019-05-16 13:30] VITALS: BP 123/78
--- NOTE | 2019-05-17 23:57 | EKG REPORT ---
SEVERITY:- OTHERWISE NORMAL ECG - SINUS RHYTHM BORDERLINE LEFT AXIS DEVIATION : Confirmed by: Danae Sahni 17-May-2019 23:57:06
== END 2019-05-16 13:30 | disposition home or self-care (01) ==
LOC: ER 09:26
DX: R07.9 Chest pain, unspecified (principal); F41.9 Anxiety disorder, unspecified; E11.9 Type 2 diabetes mellitus without complications; Z88.6 Allergy status to analgesic agent
CPT/HCPCS: 93005; 99285; 36415; 82553; 82550; 85025; 80053; 81001; 84484; 80307; 93971; 71046; 93010; A9270 ×2

== ENCOUNTER 2019-08-09 18:02 | Emergency (ER) | payer MEDICARE ==
--- NOTE | 2019-08-09 18:25 | ER Document Report ---
HPI - HPI Patient complains to provider of: Anxiety Time Seen by Provider: 08/09/19 18:16 Onset: Other Onset/Duration: Sudden Quality of pain: No pain Pain Level: Denies Context: This 34-year-old male presents the emergency department with request for medication refill. Reports he has a history of anxiety and PTSD. Reports [facility] He has had problems getting his clonazepam refilled. Reports he has not had a full dose for the past 4 days. He has been cutting his medication in half. Also takes Lexapro. Reports his stomach a little bit irritated and his right hand feels tingly. He reports this is his typical symptoms for anxiety. Denies fever vomiting diarrhea. Denies suicidal or homicidal ideations. Associated Symptoms: None Exacerbated by: Denies Relieved by: Denies Similar symptoms previously: Yes Recently seen / treated by doctor: No Past Medical History - General Information source: Patient - Social History Smoking Status: Unknown if Ever Smoked Cigarette use (# per day): No Frequency of alcohol use: None Drug Abuse: None Family History: Reviewed & Not Pertinent Patient has suicidal ideation: No Patient has homicidal ideation: No Endocrine Medical History: Reports: Hx Diabetes Mellitus Type 2 Renal/ Medical History: Denies: Hx Peritoneal Dialysis GI Medical History: Reports: Hx Gastroesophageal Reflux Disease Psychiatric Medical History: Reports: Hx Anxiety, Hx Depression - PTSD, anxiety, Hx Post Traumatic Stress Disorder Past Surgical History: Reports: Hx Oral Surgery, Hx Tonsillectomy - Immunizations Hx Diphtheria, Pertussis, Tetanus Vaccination: Yes Vertical Provider Document - CONSTITUTIONAL Agree With Documented VS: Yes Exam Limitations: No Limitations General Appearance: WD/WN, No Apparent Distress - Nontoxic looking calm - INFECTION CONTROL TRAVEL OUTSIDE OF THE [place] IN LAST 30 DAYS: No - HEENT HEENT: Atraumatic, Normocephalic - NECK Neck: Normal Inspection, Supple. negative: Lymphadenopathy-Left, Lymp hadenopathy-Right - RESPIRATORY Respiratory: Breath Sounds Normal, No Respiratory Distress - CARDIOVASCULAR Cardiovascular: Regular Rate, Regular Rhythm - GI/ABDOMEN Gastrointestinal: Abdomen Soft, Abdomen Non-Tender - MUSCULOSKELETAL/EXTREMETIES Musculoskeletal/Extremeties: MAEW, FROM, Non-Tender - NEURO Level of Consciousness: Awake, Alert, Appropriate. negative: Inappropriate, Confused, Agitated Motor/Sensory: No Motor Deficit - DERM Integumentary: Warm, Dry Course - Re-evaluation Re-evalutation: 08/09/19 18:35 Patient was instructed on prescription of clonazepam 1 mg 3 times daily dispense 10. He was instructed [facility]. Is calm. No suicide or homicide ideations. He verbalized understanding to all instructions discharged home Dictation of this chart was performed using voice recognition software; therefore, there may be some unintended grammatical errors. Discharge - Discharge Clinical Impression: Medication refill, Anxiety Condition: Stable Disposition: HOME, SELF-CARE Instructions: Anxiety ([facility]), Benzodiazepines ([facility]) Additional Instructions: *You have been evaluated for medication refill for anxiety *Take medication as prescribed *[facility] *Return to ED for worsening condition, changes, needs Prescriptions: Clonazepam [Klonopin 1 mg Tablet] 1 mg PO TID #10 tablet Referrals: [facility] [Provider Group] - 08/11/19
[2019-08-09 18:26] VITALS: BP 135/80
== END 2019-08-09 18:28 | disposition home or self-care (01) ==
LOC: ER 18:02
DX: F41.9 Anxiety disorder, unspecified (principal); T42.4X6A Underdosing of benzodiazepines, initial encounter; Z91.128 Patient's intentional underdosing of medication regimen for other reason; Z91.14 Patient's other noncompliance with medication regimen; Z76.0 Encounter for issue of repeat prescription; F43.10 Post-traumatic stress disorder, unspecified; F32.9 Major depressive disorder, single episode, unspecified; Z79.899 Other long term (current) drug therapy; R20.2 Paresthesia of skin; R19.8 Other specified symptoms and signs involving the digestive system and abdomen; E11.9 Type 2 diabetes mellitus without complications

== ENCOUNTER 2019-11-30 18:02 | Emergency (ER) | payer MEDICARE ==
--- NOTE | 2019-11-30 19:05 | ER Document Report ---
ED Medical Screen (RME) - General Chief Complaint: Chest Pain Stated Complaint: CHEST PAIN AND LEFT ARM NUMBNESS Time Seen by Provider: 11/30/19 18:56 Mode of Arrival: Ambulatory Information source: Patient Notes: Otherwise healthy 34-year-old male presenting to the emergency department chief complaint of chest pain that started earlier today. Patient reports pain feels like a squeezing sensation. He does report a history of anxiety, states he took his Klonopin however the pain did not resolve. He states he had numbness and tingling in his left arm as well. Denies any nausea, vomiting or shortness of breath. Exam: Heart sounds S1-S2 present, normal rate, normal rhythm. Lung sounds clear and equal bilaterally. I have greeted and performed a rapid initial assessment of this patient. A comprehensive ED assessment and evaluation of the patient, analysis of test results and completion of the medical decision making process will be conducted by additional ED providers. I have specifically instructed the patient or family members with the patient to immediately return to any nursing staff should anything change in the patient's condition or with their chief complaint. TRAVEL OUTSIDE OF THE [place] IN LAST 30 DAYS: No - Related Data Allergies/Adverse Reactions: cyclobenzaprine HCl [From Flexeril] Allergy (Verified 11/30/19 18:39) ibuprofen [From Motrin] Allergy (Verified 11/30/19 18:39) ketorolac tromethamine [From Toradol] Allergy (Verified 11/30/19 18:39) lorazepam [From Ativan] Allergy (Verified 11/30/19 18:39) tramadol [Tramadol] Allergy (Verified 11/30/19 18:39) Home Medications: Clonazepam. Aspirin. Celexa. Omperazole. Algliptin Past Medical History - Social History Chew tobacco use (# tins/day): No Frequency of alcohol use: None Drug Abuse: None Endocrine Medical History: Reports: Hx Diabetes Mellitus Type 2 Renal/ Medical History: Denies: Hx Peritoneal Dialysis GI Medical History: Reports: Hx Gastroesophageal Reflux Disease Psychiatric Medical History: Reports: Hx Anxiety, Hx Depression - PTSD, anxiety, Hx Post Traumatic Stress Disorder Past Surgical History: Reports: Hx Oral Surgery, Hx Tonsillectomy - Immunizations Hx Diphtheria, Pertussis, Tetanus Vaccination: Yes Physical Exam - Vital signs Vitals: Temp Pulse Resp BP Pulse Ox 98.7 F 80 18 154/87 H 98 11/30/19 18:15 11/30/19 18:15 11/30/19 18:15 11/30/19 18:15 11/30/19 18:15 Course - Vital Signs Vital signs: Temp Pulse Resp BP Pulse Ox 98.7 F 80 18 154/87 H 98 11/30/19 18:15 11/30/19 18:15 11/30/19 18:15 11/30/19 18:15 11/30/19 18:15
--- NOTE | 2019-11-30 19:42 | EKG REPORT ---
SEVERITY:- ABNORMAL ECG - SINUS RHYTHM LEFT ANTERIOR FASCICULAR BLOCK : Confirmed by: Danae Sahni 30-Nov-2019 19:41:50
--- NOTE | 2019-11-30 19:44 | RADIOLOGY REPORT (SQ) ---
EXAM DESCRIPTION: CHEST 2 VIEWS COMPLETED DATE/TIME: 11/30/2019 7:24 pm REASON FOR STUDY: chest pain COMPARISON: 05/16/2019 TECHNIQUE: Frontal and lateral radiographic views of the chest acquired. NUMBER OF VIEWS: Two view. LIMITATIONS: None. FINDINGS: LUNGS AND PLEURA: No pneumothorax. No consolidation or pleural effusion. MEDIASTINUM AND HILAR STRUCTURES: Stable. HEART AND VASCULAR STRUCTURES: Stable. BONES: No acute findings. HARDWARE: None in the chest. OTHER: No other significant finding. IMPRESSION: NO ACUTE FINDINGS. TECHNICAL DOCUMENTATION: JOB ID: [id number] [employer]- All Rights Reserved Reading location - IP/workstation name: [email or web address]
[2019-11-30 19:54] LABS: ABSOLUTE EOSINOPHILS # (AUTO) 0.4 10^3/uL (0.0-0.6); ABSOLUTE LYMPHOCYTES (AUTO) 2.2 10^3/uL (0.5-4.7); ABSOLUTE MONOCYTES (AUTO) 0.8 10^3/uL (0.1-1.4); ABSOLUTE NEUT (AUTO) 3.1 10^3/uL (1.7-8.2); BASOPHILS % (AUTO) 0.7 % (0-2); HEMATOCRIT 41.4 % (37.9-51.0); HEMOGLOBIN 13.4 g/dL (13.5-17.0); LYMPHOCYTES % (AUTO) 33.7 % (13-45); MEAN CORPUSCULAR HEMOGLOBIN 23.3 pg (27.0-33.4); MEAN CORPUSCULAR HGB CONC 32.4 g/dL (32.0-36.0); MEAN CORPUSCULAR VOLUME 72 fl (80-97); PLATELET COUNT 259 10^3/uL (150-450); RED BLOOD COUNT 5.74 10^6/uL (4.35-5.55); RED CELL DISTRIBUTION WIDTH 15.7 % (11.5-14.0); SEGMENTED NEUTROPHILS % (AUTO) 47.6 % (42-78); TOTAL CELLS COUNTED % (AUTO) 100 %; WHITE BLOOD COUNT 6.4 10^3/uL (4.0-10.5)
[2019-11-30 20:07] LABS: ALBUMIN 4.2 g/dL (3.5-5.0); ALKALINE PHOSPHATASE 38 U/L (38-126); ANION GAP 9 (5-19); ASPARTATE AMINO TRANSFERASE 33 U/L (17-59); BILIRUBIN,DIRECT 0.1 mg/dL (0.0-0.4); BILIRUBIN,TOTAL 0.4 mg/dL (0.2-1.3); BLOOD UREA NITROGEN 15 mg/dL (7-20); CALCIUM 9.7 mg/dL (8.4-10.2); CARBON DIOXIDE 26 mmol/L (22-30); CHLORIDE 104 mmol/L (98-107); GLUCOSE 123 mg/dL (75-110); POTASSIUM 3.9 mmol/L (3.6-5.0); TOTAL PROTEIN 7.1 g/dL (6.3-8.2)
[2019-11-30] MEDS ORDERED: ASPIRIN 81 MG TABLET, CHEWABLE PO ONE (21:23)
[2019-11-30] MEDS ORDERED: FAMOTIDINE 20 MG TABLET PO ONE (21:27)
--- NOTE | 2019-11-30 21:28 | ER Document Report ---
ED General - General Chief Complaint: Chest Pain Stated Complaint: CHEST PAIN AND LEFT ARM NUMBNESS Time Seen by Provider: 11/30/19 18:56 Primary Care Provider: [facility] [Provider Group] - Follow up as needed [facility] [Provider Group] - Follow up as needed [facility] [Provider Group] - Follow up as needed [facility] [Provider Group] - Follow up as needed Mode of Arrival: Ambulatory Information source: Patient Notes: 34-year-old male presented to ED for complaint of chest pain started earlier today. He states it felt like a squeezing sensation. He does have a history of anxiety depression PTSD. He states he has had chest pain in the past and is always been with no acute changes. He states is always been his anxiety. He states he does have pain again and he was concerned so he came in to get examined. He states he did have some numbness and tingling down his left arm. Chest pain started about 1 AM he took some aspirin at home with no relief. His EKG is sinus rhythm normal rate and rhythm. Patient is alert oriented respirations regular nonlabored chest clear to auscultation. TRAVEL OUTSIDE OF THE [place] IN LAST 30 DAYS: No - HPI Onset: This morning Onset/Duration: Persistent Quality of pain: Achy, Sharp Severity: Moderate Pain Level: 3 Associated symptoms: Chest pain, Shortness of breath Exacerbated by: Denies Relieved by: Denies Similar symptoms previously: Yes Recently seen / treated by doctor: No - Related Data Allergies/Adverse Reactions: cyclobenzaprine HCl [From Flexeril] Allergy (Verified 11/30/19 18:39) ibuprofen [From Motrin] Allergy (Verified 11/30/19 18:39) ketorolac tromethamine [From Toradol] Allergy (Verified 11/30/19 18:39) lorazepam [From Ativan] Allergy (Verified 11/30/19 18:39) tramadol [Tramadol] Allergy (Verified 11/30/19 18:39) Home Medications: Clonazepam. Aspirin. Celexa. Omperazole. Algliptin Past Medical History - General Information source: Patient - Social History Smoking Status: Never Smoker Chew tobacco use (# tins/day): No Frequency of alcohol use: None Drug Abuse: None Lives with: Family Family History: Reviewed & Not Pertinent Patient has suicidal ideation: No Patient has homicidal ideation: No - Past Medical History Cardiac Medical History: Reports: None Pulmonary Medical History: Reports: None EENT Medical History: Reports: None Neurological Medical History: Reports: None Endocrine Medical History: Reports: Hx Diabetes Mellitus Type 2 Renal/ Medical History: Reports: None Malignancy Medical History: Reports None GI Medical History: Reports: Hx Gastroesophageal Reflux Disease Musculoskeletal Medical History: Reports None Skin Medical History: Reports None Psychiatric Medical History: Reports: Hx Anxiety, Hx Depression - PTSD, anxiety, Hx Post Traumatic Stress Disorder Traumatic Medical History: Reports: None Infectious Medical History: Reports: None Past Surgical History: Reports: Hx Oral Surgery, Hx Tonsillectomy - Immunizations Hx Diphtheria, Pertussis, Tetanus Vaccination: Yes Review of Systems - Review of Systems Constitutional: No symptoms reported EENT: No symptoms reported Cardiovascular: Chest pain Respiratory: Short of breath Gastrointestinal: No symptoms reported Genitourinary: No symptoms reported Male Genitourinary: No symptoms reported Musculoskeletal: No symptoms reported Skin: No symptoms reported Hematologic/Lymphatic: No symptoms reported Neurological/Psychological: No symptoms reported -: Yes All other systems reviewed and negative Physical Exam - Vital signs Vitals: Temp Pulse Resp BP Pulse Ox 98.7 F 80 18 154/87 H 98 11/30/19 18:15 11/30/19 18:15 11/30/19 18:15 11/30/19 18:15 11/30/19 18:15 Interpretation: Normal - General General appearance: Appears well, Alert - HEENT Head: Normocephalic, Atraumatic Eyes: Normal Pupils: PERRL - Respiratory Respiratory status: No respiratory distress Chest status: Tender Breath sounds: Normal Chest palpation: Normal - Cardiovascular Rhythm: Regular Heart sounds: Normal auscultation Murmur: No - Abdominal Inspection: Normal Distension: No distension Bowel sounds: Hyperactive Tenderness: Tender - Epigastric Organomegaly: No organomegaly - Back Back: Normal, Nontender - Extremities General upper extremity: Normal inspection, Nontender, Normal color, Normal ROM, Normal temperature General lower extremity: Normal inspection, Nontender, Normal color, Normal ROM, Normal temperature, Normal weight bearing. No: Toni's sign - Neurological Neuro grossly intact: Yes Cognition: Normal Orientation: AAOx4 [place] Coma Scale Eye Opening: Spontaneous [place] Coma Scale Verbal: Oriented [place] Coma Scale Motor: Obeys Commands Lisa Coma Scale Total: 15 Speech: Normal Motor strength normal: LUE, RUE, LLE, RLE Sensory: Normal - Psychological Associated symptoms: Normal affect, Normal mood - Skin Skin Temperature: Warm Skin Moisture: Dry Skin Color: Normal Course - Re-evaluation Re-evalutation: 12/01/19 00:49 Labs and chest x-ray were discussed with patient. He did have 2 neg troponins. He does have a history of anxiety. He states he is not having any chest pain at this time. He was instructed to follow-up with his primary care doctor and get a cardiology results for all if he continues to have the chest pain. He states he has been seen for chest pain in the past and each time it is negative. Have low suspicion for any cardiac problems at this time. - Vital Signs Vital signs: Temp Pulse Resp BP Pulse Ox 97.7 F 80 15 132/85 H 96 11/30/19 23:33 11/30/19 18:15 11/30/19 23:00 11/30/19 19:31 11/30/19 23:00 - Laboratory Result Diagrams: 11/30/19 19:40 11/30/19 19:40 Laboratory results interpreted by me: 11/30/19 11/30/19 19:40 19:40 RBC 5.74 H Hgb 13.4 L MCV 72 L MCH 23.3 L RDW 15.7 H Glucose 123 H - Diagnostic Test Radiology reviewed: Image reviewed, Reports reviewed - EKG Interpretation by Oh EKG shows normal: Sinus rhythm, [place], Intervals Discharge - Discharge Clinical Impression: Chest pain Qualifiers: Chest pain type: unspecified Qualified Code(s): R07.9 - Chest pain, unspecified Condition: Stable Disposition: HOME, SELF-CARE Additional Instructions: CHEST PAIN OF UNCLEAR CAUSE: The exact cause of your chest pain isn't clear. Fortunately, there is no evidence of a dangerous medical condition. Further testing may be required to find the source of the pain. Most often, we find that this pain is coming from the chest wall -- the muscles or rib joints in the chest. But chest pain can come from the lung and lung lining, the esophagus, the heart valves or heart lining, and even the stomach or gallbladder. Rest. Eat lightly until the pain is gone. We may prescribe medicine for pain and inflammation. You should call the physician immediately if the pain radiates to the shoulder, jaw or arms; if you start to run a fever or develop a cough; or if you develop shortness of breath, or other new or alarming symptoms. NORMAL EXAM AND WORKUP: At this time, your examination and workup show no significant abnormality. No significant abnormal physical findings were noted. All laboratory, EKG, and imaging (x-ray, CT scans, ultrasound) studies that were ordered show no significant abnormality. Although your examination and all studies that were ordered showed no significant abnormal finding, there are no examinations and no studies that are 100% accurate. There is always the possibility that some abnormality could exist and not be detected with physical examination or within the limits and capabilities of laboratory and other studies. You should return or follow up as you were instructed on your visit today for further evaluation if your symptoms do not resolve. CHEST WALL PAIN: Your chest pain may be coming from the chest wall. This is often caused by straining the muscles or joints in the chest during physical activity, direct trauma, coughing, or vigorous vomiting. Persons with arthritis are especially prone to this type of pain, due to inflammation of the cartilage joints near the breast bone. Occasionally, no cause can be found. Rest from strenuous physical activity. This kind of chest pain is usually made worse by movement of the chest. Depending on the symptoms, we may prescribe medicine for pain, muscle relaxation, and antiinflammatory effects. If the pain is new, and seems to be due to muscle strain, cold packs can help. Otherwise, apply gentle warmth to the painful area for 15 minutes every hour or two. You should call contact the doctor immediately if things change. Further evaluation is needed if you develop a fever or cough, if the nature of the pain changes, or if you become short of breath. ASPIRIN: Aspirin has been shown to have a beneficial effect on blood circulation by reducing the clotting effect of platelets in the blood. These beneficial effects can be achieved by taking just a single baby (81 mg) aspirin a day. It is recommended that any person over the age of forty take a single baby aspirin every day for heart and brain circulation, unless you are allergic to aspirin or have some significant bleeding disorder. It is strongly recommended that people who have proven cardiac or blood circulation disturbances should take a baby aspirin every day. Acid-Suppressing Medication You have a prescription for medicine which reduces the stomach's secretion of acid. Examples include Zantac, Tagament, and Pepcid. These drugs are often used to allow healing of ulcers or esophagitis. They may be needed to prevent recurrence of ulcers in some patients, or to prevent damage from acid reflux in the esophagus. Take all medication as prescribed, even after the pain is gone. Regular antacids may be added as needed if you have symptoms while taking this medicine. These medications sometimes are prescribed for allergic reactions because they have anti-histaminic effects and relieve the rash and itching of the reaction. There are usually no side effects from this medication. But, in rare cases and particularly in the elderly, serious problems can occur. Contact your doctor if there is fever, rash, hallucinations, confusion, or unusual bruising. Contact your doctor at once if you develop lightheadedness, black or bloody stool, or bloody vomitus. FOLLOW-UP CARE: If you have been referred to a physician for follow-up care, call the physicians office for an appointment as you were instructed or within the next two days. If you experience worsening or a significant change in your symptoms, notify the physician immediately or return to the Emergency Department at any time for re-evaluation. Forms: Elevated Blood Pressure, Return to Work Referrals: [facility] [Provider Group] - Follow up as needed [facility] [Provider Group] - Follow up as needed [facility] [Provider Group] - Follow up as needed [facility] [Provider Group] - Follow up as needed
[2019-11-30 22:04] LABS: APPEARANCE,URINE CLEAR; BILIRUBIN,URINE NEGATIVE (NEGATIVE); COLOR,URINE YELLOW; GLUCOSE, URINE NEGATIVE (NEGATIVE); KETONES,URINE NEGATIVE (NEGATIVE); LEUKOCYTE ESTERASE,URINE NEGATIVE (NEGATIVE); NITRITE,URINE NEGATIVE (NEGATIVE); PROTEIN,URINE NEGATIVE (NEGATIVE); URINE SPECIFIC GRAVITY 1.025; UROBILINOGEN,URINE NEGATIVE mg/dL (<2.0)
[2019-11-30 22:15] LABS: URINE AMPHETAMINES SCREEN NEGATIVE; URINE BARBITURATES SCREEN NEGATIVE; URINE BENZODIAZEPINES SCREEN NEGATIVE; URINE COCAINE SCREEN NEGATIVE; URINE MARIJUANA (THC) SCREEN NEGATIVE; URINE METHADONE SCREEN NEGATIVE; URINE PHENCYCLIDINE SCREEN NEGATIVE
[2019-11-30 23:23] VITALS: BP 132/85
== END 2019-11-30 23:39 | disposition home or self-care (01) ==
LOC: ER 18:02
DX: R07.9 Chest pain, unspecified (principal); R20.0 Anesthesia of skin; F41.9 Anxiety disorder, unspecified; F43.10 Post-traumatic stress disorder, unspecified; E11.9 Type 2 diabetes mellitus without complications; Z88.6 Allergy status to analgesic agent
CPT/HCPCS: 93005; 99285; 36415; 85025; 80053; 81001; 84484; 80307; 71046; 93010; A9270 ×2

== ENCOUNTER 2020-04-13 03:08 | Observation (INO) | payer MEDICARE ==
[2020-04-13] MEDS ORDERED: NORMAL SALINE 1000 ML 1,000 ML IV ONE ×2 (04:36→05:13)
[2020-04-13] MEDS ORDERED: INSULIN REG, HUMAN 100 UNIT/ML 3 ML VIAL (PYX) SUBCUT ONE ×2 (05:13→07:59)
--- NOTE | 2020-04-13 05:16 | ER Document Report ---
ED Blood Sugar Problem - General TRAVEL OUTSIDE OF THE [place] IN LAST 30 DAYS: No <JANIS BLANCO - Last Filed: 04/13/20 07:41> <COSME GRESHAM - Last Filed: 04/13/20 10:49> - General Chief Complaint: High Blood Sugar Stated Complaint: MOUTH DRY Time Seen by Provider: 04/13/20 04:49 Notes: CHIEF COMPLAINT: Hyperglycemia HPI: 34-year-old male recently diagnosed with diabetes presenting for hyperglycemia, increased thirst and increased urination over the last week. Does not have a glucometer at home but has noticed increased thirst and urination over the last week with some generalized weakness. No fever no cough no chest pain no shortness of breath. No abdominal pain. Patient states that he initially did not want to take metformin because of side effects. He did take glipizide, glimepiride without improvement in his blood glucose. Was started on a new medication alogliptin 3 weeks ago but believes it is not working. [facility] ROS: See HPI - all other systems were reviewed and are otherwise negative Constitutional: no fever Eyes: no drainage, no blurred vision ENT: no runny nose, no sore throat, positive polydipsia Cardiovascular: no chest pain Resp: no SOB, no cough GI: no vomiting, no diarrhea, no abdominal pain : no dysuria, positive polyuria Integumentary: no rash Allergy: no hives Musculoskeletal: no extremity pain or swelling Neurological: no numbness/tingling, positive generalized weakness MEDICATIONS: I agree with the patient medications as charted by the RN. ALLERGIES: I agree with the allergies as charted by the RN. PAST MEDICAL HISTORY/PAST SURGICAL HISTORY: Reviewed and agree as charted by RN. SOCIAL HISTORY: Reviewed and agree as charted by RN. FAMILY HISTORY: No significant familial comorbid conditions directly related to patient complaint EXAM: Reviewed vital signs as charted by RN. CONSTITUTIONAL: Alert and oriented and responds appropriately to questions. Well-appearing; well-nourished HEAD: Normocephalic; atraumatic EYES: PERRL; Conjunctivae clear, sclerae non-icteric ENT: normal nose; no rhinorrhea; slightly dry mucous membranes; pharynx without lesions noted, no uvula edema or deviation, no tonsillar hypertrophy, phonation normal NECK: Supple without meningismus; non-tender; no cervical lymphadenopathy, no masses CARD: RRR; no murmurs, no clicks, no rubs, no gallops; symmetric distal pulses RESP: Normal chest excursion without splinting or tachypnea; breath sounds clear and equal bilaterally; no wheezes, no rhonchi, no rales, pulse oximetry ABD/GI: Normal bowel sounds; non-distended; soft, non-tender, no rebound, no guarding; no palpable organomegaly or masses. BACK: The back appears normal and is non-tender to palpation, there is no CVA tenderness EXT: Normal ROM in all joints; non-tender to palpation; no cyanosis, no effusions, no edema SKIN: Normal color for age and race; warm; dry; good turgor; no acute lesions noted NEURO: Moves all extremities equally; Motor and sensory function intact PSYCH: The patient's mood and manner are appropriate. Grooming and personal hygiene are appropriate. MDM: 34-year-old diabetic male presenting with hyperglycemia. Initial blood glucose 577 in triage. Will aggressively hydrate treat with very low-dose insulin as he is insulin caitlyn and assess for DKA (JANIS BLANCO) - Related Data Allergies/Adverse Reactions: cyclobenzaprine HCl [From Flexeril] Allergy (Verified 11/30/19 18:39) ibuprofen [From Motrin] Allergy (Verified 11/30/19 18:39) ketorolac tromethamine [From Toradol] Allergy (Verified 11/30/19 18:39) lorazepam [From Ativan] Allergy (Verified 11/30/19 18:39) tramadol [Tramadol] Allergy (Verified 11/30/19 18:39) Past Medical History - Social History Smoking Status: Never Smoker Frequency of alcohol use: None Drug Abuse: None Family History: Reviewed & Not Pertinent Patient has homicidal ideation: No Endocrine Medical History: Reports: Hx Diabetes Mellitus Type 2 Renal/ Medical History: Denies: Hx Peritoneal Dialysis GI Medical History: Reports: Hx Gastroesophageal Reflux Disease Psychiatric Medical History: Reports: Hx Anxiety, Hx Depression - PTSD, anxiety, Hx Post Traumatic Stress Disorder Past Surgical History: Reports: Hx Oral Surgery, Hx Tonsillectomy - Immunizations Hx Diphtheria, Pertussis, Tetanus Vaccination: Yes <JANIS BLANCO - Last Filed: 04/13/20 07:41> Physical Exam - Vital signs Vitals: Temp Pulse Resp BP Pulse Ox 98.4 F 94 17 151/77 H 96 04/13/20 03:13 04/13/20 03:13 04/13/20 03:13 04/13/20 03:13 04/13/20 03:13 Course - Laboratory Result Diagrams: 04/13/20 05:15 04/13/20 05:15 <JANIS BLANCO - Last Filed: 04/13/20 07:41> - Laboratory Result Diagrams: 04/13/20 05:15 04/13/20 05:15 <COSME GRESHAM - Last Filed: 04/13/20 10:49> - Re-evaluation Re-evalutation: 04/13/20 06:54 Accu-Chek is now 480: Right. Patient has only received half a liter of normal saline still to receive another 1.5 L. Will recheck Accu-Chek again, patient likely needs to be started on insulin, he does indicate that [facility]. 04/13/20 07:41 Patient is still finishing his first liter of normal saline. He keeps bending his arm kinking off the line. It is running again. Will recheck Accu-Chek after second liter, if blood sugar continues to trend down can likely be discharged home to [facility] management of his hyperglycemia. Report will be given oncoming shift to follow and make final disposition (JANIS BLANCO) 04/13/20 08:17 Report received from Janis Blanco NP. Will reevaluate patient. 04/13/20 09:18 I reevaluated the patient and he still has his second liter of IV fluids running. Patient states that I just started. Will reassess blood sugar after liter of fluids is finished. 04/13/20 10:29 Patient's repeat blood blood glucose actually went up. He is currently at 469. I had a lengthy conversation with the patient and will call for admission for blood sugar control. 04/13/20 10:[address] Anne, the lead Hospitalist. Then I called Dr. Rodriguez, the hospitalist. He will call me back. 04/13/20 10:[address] Alberto. The patient will be admitted to the medical floor for glucose management. (COSME GRESHAM) - Vital Signs Vital signs: Temp Pulse Resp BP Pulse Ox 97.8 F 94 16 176/94 H 97 04/13/20 08:51 04/13/20 03:13 04/13/20 10:01 04/13/20 10:01 04/13/20 10:01 - Laboratory Laboratory results interpreted by me: 04/13/20 04/13/20 04/13/20 03:29 05:15 05:15 RBC 5.80 H MCV 72 L MCH 23.7 L RDW 14.9 H Sodium 130.8 L Chloride 92 L Glucose 566 H* POC Glucose > 550 H* ALT 91 H Urine Glucose (UA) Urine Ketones 04/13/20 04/13/20 04/13/20 06:51 07:15 07:50 RBC MCV MCH RDW Sodium Chloride Glucose POC Glucose 480 H* 428 H* ALT Urine Glucose (UA) >=500 H Urine Ketones 20 H 04/13/20 09:59 RBC MCV MCH RDW Sodium Chloride Glucose POC Glucose 469 H* ALT Urine Glucose (UA) Urine Ketones Discharge <JANIS BLANCO - Last Filed: 04/13/20 07:41> - Discharge Admitting Provider: Jennifer (Hospitalist) Unit Admitted: Medical Floor <COSME GRESHAM - Last Filed: 04/13/20 10:49> - Discharge Clinical Impression: Hyperglycemia Condition: Stable Disposition: ADMITTED INPATIENT
[2020-04-13 05:30] LABS: ABSOLUTE BASOPHILS # (AUTO) 0.1 10^3/uL (0.0-0.2); ABSOLUTE EOSINOPHILS # (AUTO) 0.4 10^3/uL (0.0-0.6); ABSOLUTE MONOCYTES (AUTO) 0.7 10^3/uL (0.1-1.4); BASOPHILS % (AUTO) 1.1 % (0-2); EOSINOPHILS % (AUTO) 5.1 % (0-6); HEMOGLOBIN 13.8 g/dL (13.5-17.0); LYMPHOCYTES % (AUTO) 28.5 % (13-45); MEAN CORPUSCULAR HEMOGLOBIN 23.7 pg (27.0-33.4); MEAN CORPUSCULAR HGB CONC 32.8 g/dL (32.0-36.0); MEAN CORPUSCULAR VOLUME 72 fl (80-97); MONOCYTES % (AUTO) 9.8 % (3-13); PLATELET COUNT 238 10^3/uL (150-450); RED CELL DISTRIBUTION WIDTH 14.9 % (11.5-14.0); SEGMENTED NEUTROPHILS % (AUTO) 55.5 % (42-78); TOTAL CELLS COUNTED % (AUTO) 100 %; WHITE BLOOD COUNT 7.1 10^3/uL (4.0-10.5)
[2020-04-13 05:48] LABS: ALBUMIN 4.7 g/dL (3.5-5.0); ALKALINE PHOSPHATASE 73 U/L (38-126); ANION GAP 12 (5-19); ASPARTATE AMINO TRANSFERASE 44 U/L (17-59); BILIRUBIN,TOTAL 0.6 mg/dL (0.2-1.3); BLOOD UREA NITROGEN 20 mg/dL (7-20); CALCIUM 10.1 mg/dL (8.4-10.2); CARBON DIOXIDE 27 mmol/L (22-30); CHLORIDE 92 mmol/L (98-107); TOTAL PROTEIN 7.8 g/dL (6.3-8.2)
[2020-04-13 06:03] LABS: GLUCOSE 566 mg/dL (75-110)
[2020-04-13 06:50] LABS: VENOUS BLOOD BASE EXCESS 0.9 mmol/L; VENOUS BLOOD HCO3 27.2 mmol/L (20-32); VENOUS BLOOD PCO2 49.8 mmHg (35-63); VENOUS BLOOD PH 7.36 (7.30-7.42)
--- NOTE | 2020-04-13 07:19 | EKG REPORT ---
SEVERITY:- ABNORMAL ECG - SINUS RHYTHM LEFT AXIS DEVIATION ST ELEVATION INCREASED COMPARED TO PREVIOUS EKGS , PROBABLE LATERAL INJURY, CLINICAL CORRELATION NEED ED. : Confirmed by: Alok Pascual MD 13-Apr-2020 07:18:37
[2020-04-13 07:38] LABS: APPEARANCE,URINE CLEAR; BILIRUBIN,URINE NEGATIVE (NEGATIVE); COLOR,URINE STRAW; GLUCOSE, URINE >=500 mg/dL (NEGATIVE); KETONES,URINE 20 mg/dL (NEGATIVE); LEUKOCYTE ESTERASE,URINE NEGATIVE (NEGATIVE); NITRITE,URINE NEGATIVE (NEGATIVE); PROTEIN,URINE NEGATIVE (NEGATIVE); URINE SPECIFIC GRAVITY 1.029; UROBILINOGEN,URINE NEGATIVE mg/dL (<2.0)
[2020-04-13] MEDS ORDERED: PROMETHAZINE HCL INJ 25 MG/1 ML VIAL IV PRN (13:29)
[2020-04-13] MEDS ORDERED: PROMETHAZINE HCL 25 MG TABLET PO PRN (13:29)
[2020-04-13] MEDS ORDERED: MAG HYDROX/AL HYDROX/SIMETH SUSP 30 ML UDCUP PO PRN (13:29)
[2020-04-13] MEDS ORDERED: ACETAMINOPHEN 325 MG TABLET PO PRN (13:29)
[2020-04-13] MEDS ORDERED: MAGNESIUM HYDROXIDE SUSP 30 ML UDCUP PO PRN (13:29)
--- NOTE | 2020-04-13 13:50 | PDOC H&P ---
History of Present Illness Admission Date/PCP: 04/13/20 10:58 Patient complains of: Polyuria with nausea and vomiting History of Present Illness: FAINA CUADRA II is a 34 year old male who has been working with the [place] clinic on his diabetes. According to the patient it is type 2 diabetes. He has tried several oral medications and due to side effects these have been changed. His last medication was alogliptin and he has been on this for 3 weeks. Unfortun ately he has not gotten a glucometer yet and so he is not testing his sugars. He notes that he is been having increased urinary frequency and increased thirst over the last 4 to 5 days. He reports some swelling in his feet. Because he has been feeling poorly he presented to the emergency department. His initial sugar was over 400. He was ketone positive in his urine. He has been receiving intermittent dosing of insulin. His glucose is starting to trend down. He did not have an anion gap. The patient will be admitted to the hospitalist service. We will utilize a combination of insulin and oral medications. There is a strong family history of diabetes. He is somewhat young for type II. Consider a C-peptide test to try to distinguish so the patient can receive the right treatment. Past Medical History Cardiac Medical History: Denies: Atrial Fibrillation, Congestive Heart Failure, Myocardial Infarction, Peripheral Vascular Disease Pulmonary Medical History: Denies: Asthma, Chronic Obstructive Pulmonary Disease (COPD), Pneumonia, Respiratory Failure EENT Medical History: Reports: Ears - Tympanostomy tubes Denies: Eyes Neurological Medical History: Denies: Hemorrhagic CVA, Ischemic CVA, Seizures Endocrine Medical History: Reports: Diabetes Mellitus Type 2 Renal/ Medical History: Denies: Chronic Kidney Disease, Nephrolithiasis Malignancy Medical History: Reports: None GI Medical History: Reports: Gastroesophageal Reflux Disease Denies: Cirrhosis, Crohn's Disease, Peptic Ulcer Disease, Ulcerative Colitis Musculoskeltal Medical History: Denies: Arthritis, Fibromyalgia, Gout Skin Medical History: Reports: None Psychiatric Medical History: Reports: Depression - PTSD, anxiety, Post Traumatic Stress Disorder Hematology: Denies: Anemia, Sickle Cell Disease, Neutropenia Infectious Medical History: Reports: None Past Surgical History Past Surgical History: Reports: Tonsillectomy, Other - Tympanostomy tubes Social History Information Source: Patient Lives with: Family Smoking Status: Never Smoker Electronic Cigarette use?: No Frequency of Alcohol Use: None Hx Recreational Drug Use: No Hx Prescription Drug Abuse: No - Advance Directive Resuscitation Status: Full Code Surrogate healthcare decision maker:: The patient's would be the designated decision maker Family History Family History: Reviewed & Not Pertinent, DM Parental Family History Reviewed: Yes - Diabetes Children Family History Reviewed: Yes Sibling(s) Family History Reviewed.: NA Medication/Allergy Home Medications: Escitalopram Oxalate [Lexapro 10 mg Tablet] 10 mg PO QHS 01/29/16 Aspirin [Aspirin 81 mg Chewable Tablet] 81 mg PO DAILY 05/08/18 Omeprazole 40 mg PO DAILY 05/08/18 Alogliptin Benzoate [Alogliptin] 12.5 mg PO DAILY 04/13/20 Clonazepam [Klonopin 1 mg Tablet] 1 mg PO TIDP PRN 04/13/20 Diclofenac Sodium 4 gm TP QID 04/13/20 Allergies/Adverse Reactions: cyclobenzaprine HCl [From Flexeril] Allergy (Verified 11/30/19 18:39) ibuprofen [From Motrin] Allergy (Verified 11/30/19 18:39) ketorolac tromethamine [From Toradol] Allergy (Verified 11/30/19 18:39) lorazepam [From Ativan] Allergy (Verified 11/30/19 18:39) tramadol [Tramadol] Allergy (Verified 11/30/19 18:39) Review of Systems All systems: reviewed and no additional remarkable complaints except as stated Constitutional: PRESENT: anorexia, weight loss Gastrointestinal: PRESENT: heartburn, nausea Genitourinary: PRESENT: other - Frequent urination Endocrine: PRESENT: polydipsia, polyuria Physical Exam Vital Signs: Temp Pulse Resp BP Pulse Ox 97.8 F 94 11 L 167/88 H 97 04/13/20 11:01 04/13/20 03:13 04/13/20 11:01 04/13/20 11:01 04/13/20 11:01 Intake & Output 04/12/20 04/13/20 04/14/20 06:59 06:59 06:59 Intake Total 1999 Balance 1999 Weight 141.974 kg General appearance: PRESENT: cooperative, morbidly obese, well-developed Head exam: PRESENT: atraumatic, normocephalic Eye exam: PRESENT: conjunctiva pink, EOMI. ABSENT: scleral icterus Ear exam: PRESENT: normal external ear exam. ABSENT: bleeding, drainage Mouth exam: PRESENT: dry mucosa, tongue midline Teeth exam: ABSENT: poor dentation Neck exam: ABSENT: carotid bruit, JVD, lymphadenopathy, thyromegaly Respiratory exam: PRESENT: clear to auscultation mirtha, symmetrical, unlabored. ABSENT: accessory muscle use, prolonged expiratory phas, rales, rhonchi, tachypnea, wheezes Cardiovascular exam: PRESENT: RRR, +S1, +S2. ABSENT: diastolic murmur, irregular rhythm, systolic murmur GI/Abdominal exam: PRESENT: normal bowel sounds, soft. ABSENT: distended, guarding, tenderness Rectal exam: PRESENT: deferred Gentrourinary exam: ABSENT: indwelling catheter Extremities exam: ABSENT: pedal edema Musculoskeletal exam: PRESENT: ambulatory, normal inspection. ABSENT: deformity Neurological exam: PRESENT: alert, awake, oriented to person, oriented to place, oriented to time, oriented to situation, CN II-XII grossly intact. ABSENT: altered, motor sensory deficit Psychiatric exam: PRESENT: appropriate affect, flat affect. ABSENT: agitated, anxious Focused psych exam: ABSENT: delusional, paranoid, restlessness Skin exam: PRESENT: dry, normal color, warm. ABSENT: erythema, rash, vesicles Results Laboratory Results: 04/13/20 05:15 04/13/20 05:15 04/13/20 04/13/20 04/13/20 05:15 05:15 06:25 WBC 7.1 RBC 5.80 H Hgb 13.8 Hct 42.0 MCV 72 L MCH 23.7 L MCHC 32.8 RDW 14.9 H Plt Count 238 Seg Neutrophils % 55.5 VBG pH 7.36 VBG pCO2 49.8 VBG HCO3 27.2 VBG Base Excess 0.9 Sodium 130.8 L Potassium 5.0 Chloride 92 L Carbon Dioxide 27 Anion Gap 12 BUN 20 Creatinine 1.17 Est GFR ( Amer) > 60 Glucose 566 H* Calcium 10.1 Total Bilirubin 0.6 AST 44 Alkaline Phosphatase 73 Total Protein 7.8 Albumin 4.7 Urine Color Urine Appearance Urine pH Ur Specific [place] Urine Protein Urine Glucose (UA) Urine Ketones Urine Blood Urine Nitrite Ur Leukocyte Esterase Urine WBC (Auto) Urine RBC (Auto) 04/13/20 07:15 WBC RBC Hgb Hct MCV MCH MCHC RDW Plt Count Seg Neutrophils % VBG pH VBG pCO2 VBG HCO3 VBG Base Excess Sodium Potassium Chloride Carbon Dioxide Anion Gap BUN Creatinine Est GFR ( Amer) Glucose Calcium Total Bilirubin AST Alkaline Phosphatase Total Protein Albumin Urine Color STRAW Urine Appearance CLEAR Urine pH 5.0 Ur Specific [place] 1.029 Urine Protein NEGATIVE Urine Glucose (UA) >=500 H Urine Ketones 20 H Urine Blood NEGATIVE Urine Nitrite NEGATIVE Ur Leukocyte Esterase NEGATIVE Urine WBC (Auto) 1 Urine RBC (Auto) 0 Assessment and Plan - Diagnosis (1) Type 2 diabetes mellitus with hyperosmolarity without nonketotic hyperglycemic-hyperosmolar coma (NKHHC) Is this a current diagnosis for this admission?: Yes Plan: 04/13/2020 The patient's urine was ketone positive initially. He did not have an anion gap. His serum bicarbonate was normal. He did not experience altered mental status. We will utilize long and short acting insulin and introduce low-dose metformin. The alogliptin on its own was not effective. We will try and create a reasonable regimen for the patient follow-up. He may also benefit from a C- peptide level if this has not been done already to truly assess if this is type I or type 2 diabetes. (2) Hyperglycemia due to type 2 diabetes mellitus Qualifiers: Diabetes mellitus usp insulin use: without ferry terminal agent use Qualified Code(s): E11.65 - Type 2 diabetes mellitus with hyperglycemia Is this a current diagnosis for this admission?: Yes Plan: 04/13/2020 The patient states that a glucometer was ordered for him but he did not arrive yet. I explained that this is crucial for his diabetic care. In addition he has been trying to find an adequate regimen. Alogliptin and glipizide have not worked. He never tried the metformin because he was worried about adverse effects. He has agreed to a trial of low-dose metformin. He will have sliding scale and insulin therapy. He may trial sitiglipton as well. (3) Posttraumatic stress disorder Is this a current diagnosis for this admission?: Yes Plan: 04/13/2020 Continue clonazepam and Lexapro (4) Anxiety Is this a current diagnosis for this admission?: Yes Plan: 04/13/2020 Continue current medication regimen (5) Hyponatremia Is this a current diagnosis for this admission?: Yes Plan: 04/13/2020 Secondary to hyperglycemia. Recheck when glucose improves. - Time Time Spent with patient: 35 or more minutes Medications reviewed and adjusted accordingly: Yes Anticipated discharge: Home - Inpatient Certification Based on my medical assessment, after consideration of the patient's comorbidities, presenting symptoms, or acuity I expect that the services needed warrant INPATIENT care.: Yes I certify that my determination is in accordance with my understanding of Medicare's requirements for reasonable and necessary INPATIENT services [42 CFR 412.3e].: Yes Medical Necessity: Need Close Monitoring Due to Risk of Patient Decompensation, Need For IV Fluids Post Hospital Care: D/C Dye Tub Operator Documentation
[2020-04-13] MEDS ORDERED: DEXTROSE 50%-WATER 25 GM/50 ML DISP.SYRIN IV PRN ×2 (13:53)
[2020-04-13] MEDS ORDERED: DEXTROSE 40% GEL 15 GM TUBE PO PRN ×2 (13:53)
[2020-04-13] MEDS ORDERED: GLUCAGON,HUMAN RECOMB 1 MG INJ IM PRN (13:53)
[2020-04-13] MEDS ORDERED: CLONAZEPAM 1 MG TABLET PO SCH (14:00)
[2020-04-13] MEDS: INSULIN REG, HUMAN 100 UNIT/ML 3 ML VIAL (PYX) SUBCUT SCH ×3 (15:06→21:57)
[2020-04-13] MEDS: METFORMIN HCL 500 MG TABLET PO SCH (15:07)
[2020-04-13] MEDS: CLONAZEPAM 1 MG TABLET PO SCH ×2 (15:07→21:56)
[2020-04-13] MEDS: NORMAL SALINE 1000 ML 1,000 ML IV PRN ×2 (17:42→23:13)
[2020-04-13 18:50] LABS: BLOOD UREA NITROGEN 16 mg/dL (7-20); CALCIUM 9.2 mg/dL (8.4-10.2); CARBON DIOXIDE 23 mmol/L (22-30); POTASSIUM 4.4 mmol/L (3.6-5.0)
[2020-04-13 18:51] LABS: ANION GAP 12 (5-19); CHLORIDE 98 mmol/L (98-107)
[2020-04-13 19:10] LABS: GLUCOSE 419 mg/dL (75-110)
[2020-04-13] MEDS: ASPIRIN 81 MG TABLET, ENT COATED PO SCH (21:56)
[2020-04-13] MEDS: INSULIN GLARGINE,HUM.REC.ANLOG 1,000 UNIT/10 ML VIAL SUBCUT SCH (21:56)
[2020-04-13 22:07] LABS: APPEARANCE,URINE CLEAR; BILIRUBIN,URINE NEGATIVE (NEGATIVE); COLOR,URINE STRAW; GLUCOSE, URINE >=500 mg/dL (NEGATIVE); KETONES,URINE 20 mg/dL (NEGATIVE); LEUKOCYTE ESTERASE,URINE NEGATIVE (NEGATIVE); NITRITE,URINE NEGATIVE (NEGATIVE); PROTEIN,URINE NEGATIVE (NEGATIVE); URINE SPECIFIC GRAVITY 1.031; UROBILINOGEN,URINE NEGATIVE mg/dL (<2.0)
[2020-04-14] MEDS: INSULIN REG, HUMAN 100 UNIT/ML 3 ML VIAL (PYX) SUBCUT SCH ×3 (02:14→09:51)
[2020-04-14] MEDS: NORMAL SALINE 1000 ML 1,000 ML IV PRN ×3 (04:11→14:20)
[2020-04-14] MEDS: PANTOPRAZOLE SODIUM 40 MG TABLET.DR PO SCH (06:20)
[2020-04-14] MEDS: CLONAZEPAM 1 MG TABLET PO SCH ×3 (06:20→21:25)
[2020-04-14] MEDS: METFORMIN HCL 500 MG TABLET PO SCH ×2 (07:43→16:58)
[2020-04-14] MEDS: INSULIN GLARGINE,HUM.REC.ANLOG 1,000 UNIT/10 ML VIAL SUBCUT SCH ×2 (09:51→21:26)
[2020-04-14] MEDS: ENOXAPARIN SODIUM INJ 40 MG/0.4 ML DISP.SYRIN SUBCUT SCH (09:52)
[2020-04-14] MEDS ORDERED: ESCITALOPRAM OXALATE 10 MG TABLET PO SCH ×2 (10:00→20:00)
--- NOTE | 2020-04-14 13:40 | PDOC PROGRESS REPORT ---
Subjective Progress Note for:: 04/14/20 Subjective:: Patient is starting to feel better. Still have not been able to get glucose below 300. Reason For Visit: HYPERGLYCEMIC HYPEROSMOLAR,ANXIETY,GERD Physical Exam Vital Signs: Temp Pulse Resp BP Pulse Ox 97.9 F 82 15 108/85 98 04/14/20 11:16 04/14/20 11:16 04/14/20 11:16 04/14/20 11:16 04/14/20 11:16 Intake & Output 04/13/20 04/14/20 04/15/20 06:59 06:59 06:59 Intake Total 4113 1160 Output Total 625 Balance 3488 1160 Weight 141.974 kg 144.5 kg General appearance: PRESENT: no acute distress, cooperative, morbidly obese, well-developed Head exam: PRESENT: atraumatic, normocephalic Respiratory exam: PRESENT: clear to auscultation mitrha, symmetrical, unlabored. ABSENT: rales, rhonchi, tachypnea, wheezes Cardiovascular exam: PRESENT: RRR, +S1, +S2 GI/Abdominal exam: PRESENT: normal bowel sounds, soft. ABSENT: distended, guarding, tenderness Musculoskeletal exam: PRESENT: ambulatory Neurological exam: PRESENT: alert, awake, oriented to person, oriented to place, oriented to time, oriented to situation, CN II-XII grossly intact. ABSENT: altered Psychiatric exam: PRESENT: appropriate affect. ABSENT: agitated, anxious Focused psych exam: ABSENT: delusional, restlessness Results Laboratory Results: 04/13/20 05:15 04/13/20 18:13 04/13/20 04/13/20 18:13 20:45 Sodium 132.7 L Potassium 4.4 Chloride 98 Carbon Dioxide 23 Anion Gap 12 BUN 16 Creatinine 0.93 Est GFR ( Amer) > 60 Glucose 419 H* Calcium 9.2 Magnesium 1.8 Urine Color STRAW Urine Appearance CLEAR Urine pH 6.0 Ur Specific [place] 1.031 Urine Protein NEGATIVE Urine Glucose (UA) >=500 H Urine Ketones 20 H Urine Blood NEGATIVE Urine Nitrite NEGATIVE Ur Leukocyte Esterase NEGATIVE Urine WBC (Auto) 0 Assessment and Plan - Diagnosis (1) Type 2 diabetes mellitus with hyperosmolarity without nonketotic hyperglycemic-hyperosmolar coma (NKHHC) Is this a current diagnosis for this admission?: Yes Plan: 04/13/2020 The patient's urine was ketone positive initially. He did not have an anion gap. His serum bicarbonate was normal. He did not experience altered mental status. We will utilize long and short acting insulin and introduce low-dose metformin. The alogliptin on its own was not effective. We will try and create a reasonable regimen for the patient follow-up. He may also benefit from a C- peptide level if this has not been done already to truly assess if this is type I or type 2 diabetes. 04/14/2020 We will increase insulin. Unfortunately C-peptide testing is not available. I explained to the patient that he may in fact have type 1 diabetes. He is already on low-dose metformin I am going to start low-dose sitagliptin. The safest plan might be to send him out on insulin therapy and I will adjust her medications to gradually work him up off of the insulin unless testing reveals type 1 diabetes. (2) Hyperglycemia due to type 2 diabetes mellitus Qualifiers: Diabetes mellitus alf insulin use: without alf use Qualified Code(s): E11.65 - Type 2 diabetes mellitus with hyperglycemia Is this a current diagnosis for this admission?: Yes Plan: 04/13/2020 The patient states that a glucometer was ordered for him but he did not arrive yet. I explained that this is crucial for his diabetic care. In addition he has been trying to find an adequate regimen. Alogliptin and glipizide have not worked. He never tried the metformin because he was worried about adverse effects. He has agreed to a trial of low-dose metformin. He will have sliding scale and insulin therapy. He may trial sitiglipton as well. 04/14/2020 Continue to adjust medications. Would like to see his glucose at least closer to 200 before discharge. (3) Posttraumatic stress disorder Is this a current diagnosis for this admission?: Yes Plan: 04/13/2020 Continue clonazepam and Lexapro (4) Anxiety Is this a current diagnosis for this admission?: Yes Plan: 04/13/2020 Continue current medication regimen 04/14/2020 Anxiety seems reasonably controlled (5) Hyponatremia Is this a current diagnosis for this admission?: Yes Plan: 04/13/2020 Secondary to hyperglycemia. Recheck when glucose improves. 04/14/2020 We will recheck electrolytes tomorrow - Time Time Spent with patient: 15-24 minutes Medications reviewed and adjusted accordingly: Yes Anticipated discharge: Home Within: within 48 hours
[2020-04-14] MEDS: INSULIN LISPRO 100 UNIT/ML 3 ML VIAL SUBCUT SCH ×2 (16:56→21:25)
[2020-04-14] MEDS: ASPIRIN 81 MG TABLET, ENT COATED PO SCH (21:25)
[2020-04-15] MEDS: CLONAZEPAM 1 MG TABLET PO SCH (05:12)
[2020-04-15] MEDS: PANTOPRAZOLE SODIUM 40 MG TABLET.DR PO SCH (05:12)
[2020-04-15 05:59] LABS: ANION GAP 8 (5-19); BLOOD UREA NITROGEN 11 mg/dL (7-20); CALCIUM 8.8 mg/dL (8.4-10.2); CARBON DIOXIDE 23 mmol/L (22-30); CHLORIDE 102 mmol/L (98-107); GLUCOSE 330 mg/dL (75-110); POTASSIUM 4.1 mmol/L (3.6-5.0)
[2020-04-15] MEDS: NORMAL SALINE 1000 ML 1,000 ML IV PRN ×2 (06:10)
[2020-04-15] MEDS: INSULIN LISPRO 100 UNIT/ML 3 ML VIAL SUBCUT SCH ×2 (07:52→11:35)
[2020-04-15] MEDS ORDERED: METFORMIN HCL 500 MG TABLET PO SCH (08:00)
[2020-04-15] MEDS: INSULIN GLARGINE,HUM.REC.ANLOG 1,000 UNIT/10 ML VIAL SUBCUT SCH (09:52)
[2020-04-15] MEDS: ENOXAPARIN SODIUM INJ 40 MG/0.4 ML DISP.SYRIN SUBCUT SCH (09:52)
[2020-04-15] MEDS ORDERED: SITAGLIPTIN PHOSPHATE 25 MG TABLET PO SCH (10:00)
[2020-04-15 11:18] VITALS: BP 137/86
--- NOTE | 2020-04-15 11:23 | PDOC DISCHARGE SUMMARY ---
Impression - Admit/DC Date/PCP Admission Date/Primary Care Provider: 04/13/20 10:58 Discharge Date: 04/15/20 - Discharge Diagnosis (1) Type 2 diabetes mellitus with hyperosmolarity without nonketotic hyperglycemic-hyperosmolar coma (NKHHC) Is this a current diagnosis for this admission?: Yes (2) Hyperglycemia due to type 2 diabetes mellitus Is this a current diagnosis for this admission?: Yes (3) Posttraumatic stress disorder Is this a current diagnosis for this admission?: Yes (4) Anxiety Is this a current diagnosis for this admission?: Yes (5) Hyponatremia Is this a current diagnosis for this admission?: Yes - Additional Information Resuscitation Status: Full Code Discharge Diet: Diabetic Discharge Activity: Activity As Tolerated Prescriptions: Insulin Pump/Infus. Set/Meter [Accu-Chek Combo System] 1 each MC BID #1 kit Lancing Device/Lancets [Accu-Chek Fastclix Lancet Kit] 1 each MC BID #1 kit Sitagliptin Phos/Metformin HCl [Janumet Xr 50-1,000 mg Tablet] 1 each PO WSUPPER #14 tbmp.24hr Home Medications: Escitalopram Oxalate [Lexapro 10 mg Tablet] 10 mg PO QHS 01/29/16 Aspirin [Aspirin 81 mg Chewable Tablet] 81 mg PO DAILY 05/08/18 Omeprazole 40 mg PO DAILY 05/08/18 Clonazepam [Klonopin 1 mg Tablet] 1 mg PO TIDP PRN 04/13/20 Diclofenac Sodium 4 gm TP QID 04/13/20 Aspirin [Ecotrin 81 mg EC Tablet] 81 mg PO QHS tabec 04/15/20 Clonazepam [Klonopin 1 mg Tablet] 1 mg PO Q8 tablet 04/15/20 Escitalopram Oxalate [Lexapro 10 mg Tablet] 10 mg PO DAILY@2000 tablet 04/15/20 Insulin Pump/Infus. Set/Meter [Accu-Chek Combo System] 1 each MC BID #1 kit 04/15/20 Lancing Device/Lancets [Accu-Chek Fastclix Lancet Kit] 1 each MC BID #1 kit 04/15/20 Sitagliptin Phos/Metformin HCl [Janumet Xr 50-1,000 mg Tablet] 1 each PO WSUPPER #14 tbmp.24hr 04/15/20 History of Present Illiness History of Present Illness: FAINA R CUADRA II is a 34 year old male who has been working with the [place] clinic on his diabetes. According to the patient it is type 2 diabetes. He has tried several oral medications and due to side effects these have been changed. His last medication was alogliptin and he has been on this for 3 weeks. Unfortunately he has not gotten a glucometer yet and so he is not testing his sugars. He notes that he is been having increased urinary frequency and increased thirst over the last 4 to 5 days. He reports some swelling in his feet. Because he has been feeling poorly he presented to the emergency department. His initial sugar was over 400. He was ketone positive in his urine. He has been receiving intermittent dosing of insulin. His glucose is starting to trend down. He did not have an anion gap. The patient will be admitted to the hospitalist service. We will utilize a combination of insulin and oral medications. There is a strong family history of diabetes. He is somewhat young for type II. Consider a C-peptide test to try to distinguish so the patient can receive the right treatment. Hospital Course Hospital Course: Unremarkable hospital course. We will try combination medications to achieve better glucose control. His hemoglobin A1c was 10.8 and rapid tight glucose control is not recommended. I explained that we will try combination medication at discharge and he will need to be on a strict diabetic diet and establish an exercise program. He can expect more medication changes in the near future. Physical Exam Vital Signs: Temp Pulse Resp BP Pulse Ox 98.2 F 80 18 137/86 H 98 04/15/20 11:17 04/15/20 11:17 04/15/20 11:17 04/15/20 11:17 04/15/20 11:17 Intake & Output 04/14/20 04/15/20 04/16/20 06:59 06:59 06:59 Intake Total 4113 5485 Output Total 037 8940 Balance 3488 3035 Weight 144.5 kg 144 kg General appearance: PRESENT: no acute distress Respiratory exam: PRESENT: clear to auscultation mirtha, symmetrical, unlabored. ABSENT: rales, rhonchi, tachypnea, wheezes Cardiovascular exam: PRESENT: RRR, +S1, +S2 GI/Abdominal exam: PRESENT: normal bowel sounds, soft. ABSENT: tenderness Results Laboratory Results: WBC 7.1 10^3/uL (4.0-10.5) 04/13/20 05:15 RBC 5.80 10^6/uL (4.35-5.55) H 04/13/20 05:15 Hgb 13.8 g/dL (13.5-17.0) 04/13/20 05:15 Hct 42.0 % (37.9-51.0) 04/13/20 05:15 MCV 72 fl (80-97) L 04/13/20 05:15 MCH 23.7 pg (27.0-33.4) L 04/13/20 05:15 MCHC 32.8 g/dL (32.0-36.0) 04/13/20 05:15 RDW 14.9 % (11.5-14.0) H 04/13/20 05:15 Plt Count 238 10^3/uL (150-450) 04/13/20 05:15 Lymph % (Auto) 28.5 % (13-45) 04/13/20 05:15 [place] % (Auto) 9.8 % (3-13) 04/13/20 05:15 Eos % (Auto) 5.1 % (0-6) 04/13/20 05:15 Baso % (Auto) 1.1 % (0-2) 04/13/20 05:15 Absolute Neuts (auto) 4.0 10^3/uL (1.7-8.2) 04/13/20 05:15 Absolute Lymphs (auto) 2.0 10^3/uL (0.5-4.7) 04/13/20 05:15 Absolute Monos (auto) 0.7 10^3/uL (0.1-1.4) 04/13/20 05:15 Absolute Eos (auto) 0.4 10^3/uL (0.0-0.6) 04/13/20 05:15 Absolute Basos (auto) 0.1 10^3/uL (0.0-0.2) 04/13/20 05:15 Seg Neutrophils % 55.5 % (42-78) 04/13/20 05:15 VBG pH 7.36 (7.30-7.42) 04/13/20 06:25 VBG pCO2 49.8 mmHg (35-63) 04/13/20 06:25 VBG HCO3 27.2 mmol/L (20-32) 04/13/20 06:25 VBG Base Excess 0.9 mmol/L 04/13/20 06:25 Sodium 132.8 mmol/L (137-145) L 04/15/20 04:38 Potassium 4.1 mmol/L (3.6-5.0) 04/15/20 04:38 Chloride 102 mmol/L (98-107) 04/15/20 04:38 Carbon Dioxide 23 mmol/L (22-30) 04/15/20 04:38 Anion Gap 8 (5-19) 04/15/20 04:38 BUN 11 mg/dL (7-20) 04/15/20 04:38 Creatinine 0.79 mg/dL (0.52-1.25) 04/15/20 04:38 Est GFR ( Amer) > 60 (>60) 04/15/20 04:38 Est GFR (MDRD) Non-Af > 60 (>60) 04/15/20 04:38 Glucose 330 mg/dL (75-110) H 04/15/20 04:38 POC Glucose 343 mg/dL (70-110) H 04/15/20 06:12 Hemoglobin A1c % 10.8 % (4.7-6.0) H 04/15/20 04:38 Calcium 8.8 mg/dL (8.4-10.2) 04/15/20 04:38 Magnesium 1.8 mg/dL (1.6-2.3) 04/15/20 04:38 Total Bilirubin 0.6 mg/dL (0.2-1.3) 04/13/20 05:15 Direct Bilirubin 0.0 mg/dL (0.0-0.4) 04/13/20 05:15 Neonat Total Bilirubin Not Reportable 04/13/20 05:15 Neonat Direct Bilirubin Not Reportable 04/13/20 05:15 Neonat Indirect Bili Not Reportable 04/13/20 05:15 AST 44 U/L (17-59) 04/13/20 05:15 ALT 91 U/L (<50) H 04/13/20 05:15 Alkaline Phosphatase 73 U/L (38-126) 04/13/20 05:15 Total Protein 7.8 g/dL (6.3-8.2) 04/13/20 05:15 Albumin 4.7 g/dL (3.5-5.0) 04/13/20 05:15 Urine Color STRAW 04/13/20 20:45 Urine Appearance CLEAR 04/13/20 20:45 Urine pH 6.0 (5.0-9.0) 04/13/20 20:45 Ur Specific [place] 1.031 04/13/20 20:45 Urine Protein NEGATIVE mg/dL (NEGATIVE) 04/13/20 20:45 Urine Glucose (UA) >=500 mg/dL (NEGATIVE) H 04/13/20 20:45 Urine Ketones 20 mg/dL (NEGATIVE) H 04/13/20 20:45 Urine Blood NEGATIVE (NEGATIVE) 04/13/20 20:45 Urine Nitrite NEGATIVE (NEGATIVE) 04/13/20 20:45 Urine Bilirubin NEGATIVE (NEGATIVE) 04/13/20 20:45 Urine Urobilinogen NEGATIVE mg/dL (<2.0) 04/13/20 20:45 Ur Leukocyte Esterase NEGATIVE (NEGATIVE) 04/13/20 20:45 Urine WBC (Auto) 0 /HPF 04/13/20 20:45 Urine RBC (Auto) 0 /HPF 04/13/20 07:15 Urine Ascorbic Acid NEGATIVE (NEGATIVE) 04/13/20 20:45 Plan Health Concerns: With hemoglobin of 10.8 the patient will need an aggressive regimen to achieve good control. This should come over the course of several weeks. Plan of Treatment: Start combination therapy with Janumet Prescription for glucometer and test strips sent to [facility] as well Goals: Slow improvement in diabetes with eventual goal of hemoglobin A1c 7.0 or less Time Spent: Greater than 30 Minutes Stroke Is this a Stroke Patient?: No Acute Heart Failure - Is this a Heart Failure Patient?: No
== END 2020-04-15 13:41 | disposition home or self-care (01) ==
LOC: ER 03:08 → EH 10:58 → INTOOBSV 10:58 → 4W 14:29
PROVIDERS: ADMIT Hospitalist; ATTEND Hospitalist
DX: E11.00 Type 2 diabetes mellitus with hyperosmolarity without nonketotic hyperglycemic-hyperosmolar coma (NKHHC) (principal); E11.65 Type 2 diabetes mellitus with hyperglycemia; E87.1 Hypo-osmolality and hyponatremia; F43.10 Post-traumatic stress disorder, unspecified; F41.9 Anxiety disorder, unspecified; E66.01 Morbid (severe) obesity due to excess calories; Z79.82 Long term (current) use of aspirin; Z79.899 Other long term (current) drug therapy; Z83.3 Family history of diabetes mellitus; Z79.84 Long term (current) use of oral hypoglycemic drugs
CPT/HCPCS: 93005; 99285; 96360; 96361; 36415 ×2; 82962 ×3; 83735 ×2; 85025; 80048; 80053; 81001; 83036; 82803; 93010; A9270 ×19; J1650 ×2; J7030 ×3; G0378; J1815; J3490

== ENCOUNTER 2020-04-28 16:30 | Emergency (ER) | payer MEDICARE ==
[2020-04-28 16:50] VITALS: BP 138/85
[2020-04-28] MEDS ORDERED: NORMAL SALINE 1000 ML 1,000 ML IV ONE (17:29)
--- NOTE | 2020-04-28 17:31 | ER Document Report ---
ED Medical Screen (RME) - General Chief Complaint: Weakness Stated Complaint: WEAKNESS Time Seen by Provider: 04/28/20 17:25 Mode of Arrival: Ambulatory Information source: Patient Notes: 34-year-old male presented to ED for extreme thirst, bilateral flank pain, rash being caused by the metformin. He states he was diagnosed with diabetes recently and was started on metformin. This is caused him to have a rash all over. He states he takes his medication anyway but it does cause him a rash. He states he also has a history of PTSD anxiety and a tonsillectomy. States he does not drink smoke or use any drugs. He states he was told if he had any problems with his diabetes and his medication to please come to back to the emergency room. He states his sugars running in the 290s 300s and he came back to be reevaluated. TRAVEL OUTSIDE OF THE [place] IN LAST 30 DAYS: No - Related Data Allergies/Adverse Reactions: cyclobenzaprine HCl [From Flexeril] Allergy (Verified 11/30/19 18:39) ibuprofen [From Motrin] Allergy (Verified 11/30/19 18:39) ketorolac tromethamine [From Toradol] Allergy (Verified 11/30/19 18:39) lorazepam [From Ativan] Allergy (Verified 11/30/19 18:39) tramadol [Tramadol] Allergy (Verified 11/30/19 18:39) Past Medical History - Past Medical History Cardiac Medical History: Denies: Hx Atrial Fibrillation, Hx Congestive Heart Failure, Hx Heart Attack, Hx Peripheral Vascular Disease Pulmonary Medical History: Denies: Hx Asthma, Hx COPD, Hx Pneumonia, Hx Respiratory Failure Neurological Medical History: Denies: Hx Seizures Endocrine Medical History: Reports: Hx Diabetes Mellitus Type 2 Renal/ Medical History: Denies: Hx Peritoneal Dialysis GI Medical History: Reports: Hx Gastroesophageal Reflux Disease. Denies: Hx Cirrhosis, Hx Crohn's Disease, Hx Ulcerative Colitis Musculoskeltal Medical History: Denies Hx Arthritis, Denies Hx Fibromyalgia, Denies Hx Gout Psychiatric Medical History: Reports: Hx Anxiety, Hx Depression - PTSD, anxiety, Hx Post Traumatic Stress Disorder Past Surgical History: Reports: Hx Oral Surgery, Hx Tonsillectomy, Other - Tympanostomy tubes - Immunizations Hx Diphtheria, Pertussis, Tetanus Vaccination: Yes Physical Exam - Vital signs Vitals: Temp Pulse Resp BP Pulse Ox 98.5 F 91 20 138/85 H 96 04/28/20 16:47 04/28/20 16:47 04/28/20 16:47 04/28/20 16:47 04/28/20 16:47 Course - Vital Signs Vital signs: Temp Pulse Resp BP Pulse Ox 98.5 F 91 20 138/85 H 96 04/28/20 16:47 04/28/20 16:47 04/28/20 16:47 04/28/20 16:47 04/28/20 16:47
== END 2020-04-28 19:30 | disposition left against medical advice (07) ==
LOC: ER 16:30
DX: L27.0 Generalized skin eruption due to drugs and medicaments taken internally (principal); T38.3X5A Adverse effect of insulin and oral hypoglycemic [antidiabetic] drugs, initial encounter; E11.9 Type 2 diabetes mellitus without complications; R63.1 Polydipsia; R10.9 Unspecified abdominal pain; Z88.8 Allergy status to other drugs, medicaments and biological substances; Z88.6 Allergy status to analgesic agent; Z53.20 Procedure and treatment not carried out because of patient's decision for unspecified reasons
CPT/HCPCS: 82962; 99281

== ENCOUNTER 2020-05-09 00:06 | Emergency (ER) | payer MEDICARE ==
--- NOTE | 2020-05-09 00:37 | ER Document Report ---
ED Medical Screen (RME) - General Chief Complaint: High Blood Sugar Stated Complaint: SUGAR LEVEL ISSUES Time Seen by Provider: 05/09/20 00:23 Mode of Arrival: Ambulatory Information source: Patient Notes: Patient is a 34-year-old male with type 2 diabetes that was recently diagnosed presenting to the emergency department concern for elevated blood glucose levels at home. He states tonight on his meter his glucose level read 600. Patient reports he was admitted here recently for [id number] blood sugars. He reports excessive thirst and excessive urination, denies any vomiting. He does report that he ran out of his oral medications a few days ago as he [facility] with his new diagnosis. Patient is calm and cooperative, no acute distress noted, respirations equal and unlabored. I have greeted and performed a rapid initial assessment of this patient. A comprehensive ED assessment and evaluation of the patient, analysis of test results and completion of the medical decision making process will be conducted by additional ED providers. I have specifically instructed the patient or family members with the patient to immediately return to any nursing staff should anything change in the patient's condition or with their chief complaint. TRAVEL OUTSIDE OF THE [place] IN LAST 30 DAYS: No - Related Data Allergies/Adverse Reactions: cyclobenzaprine HCl [From Flexeril] Allergy (Verified 05/09/20 00:37) ibuprofen [From Motrin] Allergy (Verified 05/09/20 00:37) ketorolac tromethamine [From Toradol] Allergy (Verified 05/09/20 00:37) lorazepam [From Ativan] Allergy (Verified 05/09/20 00:37) tramadol [Tramadol] Allergy (Verified 05/09/20 00:37) Past Medical History - Past Medical History Cardiac Medical History: Denies: Hx Atrial Fibrillation, Hx Congestive Heart Failure, Hx Heart Attack, Hx Peripheral Vascular Disease Pulmonary Medical History: Denies: Hx Asthma, Hx COPD, Hx Pneumonia, Hx Respiratory Failure Neurological Medical History: Denies: Hx Seizures Endocrine Medical History: Reports: Hx Diabetes Mellitus Type 2 Renal/ Medical History: Denies: Hx Peritoneal Dialysis GI Medical History: Reports: Hx Gastroesophageal Reflux Disease. Denies: Hx Cirrhosis, Hx Crohn's Disease, Hx Ulcerative Colitis Musculoskeltal Medical History: Denies Hx Arthritis, Denies Hx Fibromyalgia, Denies Hx Gout Psychiatric Medical History: Reports: Hx Anxiety, Hx Depression - PTSD, anxiety, Hx Post Traumatic Stress Disorder Past Surgical History: Reports: Hx Oral Surgery, Hx Tonsillectomy, Other - Tympanostomy tubes - Immunizations Hx Diphtheria, Pertussis, Tetanus Vaccination: Yes Physical Exam - Vital signs Vitals: Temp Pulse Resp BP Pulse Ox 97.5 F 84 16 157/83 H 98 05/09/20 00:22 05/09/20 00:22 05/09/20 00:22 05/09/20 00:22 05/09/20 00:22 Course - Vital Signs Vital signs: Temp Pulse Resp BP Pulse Ox 97.5 F 84 16 157/83 H 98 05/09/20 00:22 05/09/20 00:22 05/09/20 00:22 05/09/20 00:22 05/09/20 00:22
[2020-05-09] MEDS ORDERED: NORMAL SALINE 1000 ML 1,000 ML IV ONE ×2 (00:38→02:18)
[2020-05-09 01:08] LABS: VENOUS BLOOD BASE EXCESS -2.5 mmol/L; VENOUS BLOOD PCO2 37.5 mmHg (35-63); VENOUS BLOOD PH 7.39 (7.30-7.42)
[2020-05-09 01:10] LABS: ABSOLUTE EOSINOPHILS # (AUTO) 0.5 10^3/uL (0.0-0.6); ABSOLUTE LYMPHOCYTES (AUTO) 2.3 10^3/uL (0.5-4.7); ABSOLUTE MONOCYTES (AUTO) 0.6 10^3/uL (0.1-1.4); ABSOLUTE NEUT (AUTO) 3.3 10^3/uL (1.7-8.2); BASOPHILS % (AUTO) 0.6 % (0-2); EOSINOPHILS % (AUTO) 7.6 % (0-6); HEMATOCRIT 43.3 % (37.9-51.0); HEMOGLOBIN 13.9 g/dL (13.5-17.0); LYMPHOCYTES % (AUTO) 34.2 % (13-45); MEAN CORPUSCULAR HEMOGLOBIN 23.3 pg (27.0-33.4); MEAN CORPUSCULAR HGB CONC 32.1 g/dL (32.0-36.0); MEAN CORPUSCULAR VOLUME 73 fl (80-97); MONOCYTES % (AUTO) 8.7 % (3-13); PLATELET COUNT 244 10^3/uL (150-450); RED BLOOD COUNT 5.97 10^6/uL (4.35-5.55); SEGMENTED NEUTROPHILS % (AUTO) 48.9 % (42-78); TOTAL CELLS COUNTED % (AUTO) 100 %; WHITE BLOOD COUNT 6.7 10^3/uL (4.0-10.5)
[2020-05-09 01:19] LABS: APPEARANCE,URINE CLEAR; BILIRUBIN,URINE NEGATIVE (NEGATIVE); COLOR,URINE STRAW; GLUCOSE, URINE >=500 mg/dL (NEGATIVE); KETONES,URINE 20 mg/dL (NEGATIVE); LEUKOCYTE ESTERASE,URINE NEGATIVE (NEGATIVE); NITRITE,URINE NEGATIVE (NEGATIVE); PROTEIN,URINE NEGATIVE (NEGATIVE); URINE SPECIFIC GRAVITY 1.028; UROBILINOGEN,URINE NEGATIVE mg/dL (<2.0)
[2020-05-09 01:44] LABS: ALBUMIN 4.8 g/dL (3.5-5.0); ALKALINE PHOSPHATASE 72 U/L (38-126); ANION GAP 10 (5-19); ASPARTATE AMINO TRANSFERASE 40 U/L (17-59); BILIRUBIN,TOTAL 0.6 mg/dL (0.2-1.3); BLOOD UREA NITROGEN 17 mg/dL (7-20); CALCIUM 10.1 mg/dL (8.4-10.2); CARBON DIOXIDE 24 mmol/L (22-30); CHLORIDE 97 mmol/L (98-107); POTASSIUM 4.4 mmol/L (3.6-5.0); TOTAL PROTEIN 7.7 g/dL (6.3-8.2)
[2020-05-09 01:51] LABS: GLUCOSE 434 mg/dL (75-110)
[2020-05-09] MEDS ORDERED: INSULIN REG, HUMAN 100 UNIT/ML 3 ML VIAL (PYX) SUBCUT ONE (02:18)
--- NOTE | 2020-05-09 02:23 | ER Document Report ---
ED Blood Sugar Problem - General Chief Complaint: High Blood Sugar Stated Complaint: SUGAR LEVEL ISSUES Time Seen by Provider: 05/09/20 00:23 Mode of Arrival: Ambulatory Notes: Patient is a 34-year-old male with a history of type 2 diabetes that comes emergency department for chief complaint of hyperglycemia, feeling very thirsty, frequent urination. He denies nausea or vomiting, fever or chills, dizziness, passing out, chest pain, shortness of breath, or any other complaints. He states that he was recently hospitalized for new onset type 2 diabetes, he was discharged on metformin and Janumet, he states that he goes to the [facility] and they were unable to fill his Janumet up to this point. He states he is still taking the 750 mg metformin extended release tablet. He is not on any insulin. He states she checked his blood sugars daily and mainly they are in the upper 200s, however earlier today he checked it and it was 600 so he became concerned and came to the emergency department. TRAVEL OUTSIDE OF THE [place] IN LAST 30 DAYS: No - Related Data Allergies/Adverse Reactions: cyclobenzaprine HCl [From Flexeril] Allergy (Verified 05/09/20 00:37) ibuprofen [From Motrin] Allergy (Verified 05/09/20 00:37) ketorolac tromethamine [From Toradol] Allergy (Verified 05/09/20 00:37) lorazepam [From Ativan] Allergy (Verified 05/09/20 00:37) tramadol [Tramadol] Allergy (Verified 05/09/20 00:37) Past Medical History - General Information source: Patient - Social History Smoking Status: Never Smoker Frequency of alcohol use: None Drug Abuse: None Lives with: Family Family History: Reviewed & Not Pertinent, DM Patient has homicidal ideation: No - Past Medical History Cardiac Medical History: Denies: Hx Atrial Fibrillation, Hx Congestive Heart Failure, Hx Heart Attack, Hx Peripheral Vascular Disease Pulmonary Medical History: Denies: Hx Asthma, Hx COPD, Hx Pneumonia, Hx Respiratory Failure Neurological Medical History: Denies: Hx Seizures Endocrine Medical History: Reports: Hx Diabetes Mellitus Type 2 Renal/ Medical History: Denies: Hx Peritoneal Dialysis GI Medical History: Reports: Hx Gastroesophageal Reflux Disease. Denies: Hx Cirrhosis, Hx Crohn's Disease, Hx Ulcerative Colitis Musculoskeletal Medical History: Denies Hx Arthritis, Denies Hx Fibromyalgia, Denies Hx Gout Psychiatric Medical History: Reports: Hx Anxiety, Hx Depression - PTSD, anxiety, Hx Post Traumatic Stress Disorder Past Surgical History: Reports: Hx Oral Surgery, Hx Tonsillectomy, Other - Tympanostomy tubes - Immunizations Hx Diphtheria, Pertussis, Tetanus Vaccination: Yes Review of Systems - Review of Systems Constitutional: See HPI EENT: No symptoms reported Cardiovascular: No symptoms reported Respiratory: No symptoms reported Gastrointestinal: No symptoms reported Genitourinary: See HPI Male Genitourinary: No symptoms reported Musculoskeletal: No symptoms reported Skin: No symptoms reported Hematologic/Lymphatic: No symptoms reported Neurological/Psychological: No symptoms reported Physical Exam - Vital signs Vitals: Temp Pulse Resp BP Pulse Ox 97.5 F 84 16 157/83 H 98 05/09/20 00:05/09/20 00:05/09/20 00:05/09/20 00:05/09/20 00:22 - Notes Notes: GENERAL: Alert, interacts well. No acute distress. HEAD: Normocephalic, atraumatic. EYES: Pupils equal, round, and reactive to light. Extraocular movements intact. ENT: Oral mucosa moist, tongue midline. Oropharynx unremarkable. Airway patent. LUNGS: Clear to auscultation bilaterally, no wheezes, rales, or rhonchi. No respiratory distress. Non-tender chest wall. HEART: Regular rate and rhythm. No murmur ABDOMEN: Soft, non-tender. Non-distended. Bowel sounds present in all 4 quadrants. GENITOURINARY: Deferred EXTREMITIES: Moves all 4 extremities spontaneously. No edema, normal radial and dorsalis pedis pulses bilaterally. No cyanosis. BACK: no cervical, thoracic, lumbar midline tenderness. No saddle anesthesia, normal distal neurovascular exam. Moves all extremities in full range of motion. NEUROLOGICAL: Alert and oriented x3. Normal speech. Cranial nerves II through XII grossly intact. Strength 5/5 in all extremities. PSYCH: Normal affect, normal mood. SKIN: Warm, dry, normal turgor. No rashes or lesions noted. Course - Re-evaluation Re-evalutation: Patient is alert and well-appearing on my evaluation, talkative and interactive. He is not tachycardic, he is not vomiting, there is no fever. CBC unremarkable, chemistry shows hyperglycemia in the 400s but bicarbonate and anion gap are normal, venous blood gas unremarkable, only few ketones in the urine. Patient was given 2 L of normal saline bolus, insulin, on reevaluation patient is asymptomatic. Patient is requesting refills of his metformin, additional testing strips, and he does state that he should be able to get his Janumet filled with his primary provider. Discussed in detail the treatment, follow-up, and return precautions. Patient stable and well-appearing at time of discharge. - Vital Signs Vital signs: Temp Pulse Resp BP Pulse Ox 97.8 F 77 16 131/77 H 95 05/09/20 04:17 05/09/20 04:17 05/09/20 04:17 05/09/20 04:17 05/09/20 04:17 - Laboratory Result Diagrams: 05/09/20 00:53 05/09/20 00:53 Laboratory results interpreted by me: 05/09/20 05/09/20 05/09/20 00:53 00:53 00:53 RBC 5.97 H MCV 73 L MCH 23.3 L RDW 15.0 H Eos % (Auto) 7.6 H Sodium 131.4 L Chloride 97 L Glucose 434 H* POC Glucose ALT 104 H Urine Glucose (UA) >=500 H Urine Ketones 20 H 05/09/20 03:34 RBC MCV MCH RDW Eos % (Auto) Sodium Chloride Glucose POC Glucose 327 H ALT Urine Glucose (UA) Urine Ketones Discharge - Discharge Clinical Impression: Hyperglycemia Uncontrolled type II diabetes mellitus Qualifiers: Glycemic state: with hyperglycemia Qualified Code(s): E11.65 - Type 2 diabetes mellitus with hyperglycemia Condition: Stable Disposition: HOME, SELF-CARE Additional Instructions: Take the metformin as prescribed, follow-up with your primary care to fill and start taking the Janumet XR as we discussed. Drink plenty of fluids, avoid carbohydrates. Return for any concerning symptoms including vomiting, fever, passing out, or any other concerning or worsening symptoms. Prescriptions: Lancing Device/Lancets [Accu-Chek Fastclix Lancing Dev] 1 kit MC ASDIR PRN #1 kit PRN Reason: Metformin HCl [Metformin HCl ER] 750 mg PO DAILY #30 tab.er.24h
[2020-05-09 04:18] VITALS: BP 131/77
== END 2020-05-09 04:18 | disposition home or self-care (01) ==
LOC: ER 00:06
DX: E11.65 Type 2 diabetes mellitus with hyperglycemia (principal); T38.3X6A Underdosing of insulin and oral hypoglycemic [antidiabetic] drugs, initial encounter; Z91.138 Patient's unintentional underdosing of medication regimen for other reason; Z91.14 Patient's other noncompliance with medication regimen; Z88.1 Allergy status to other antibiotic agents; Z88.8 Allergy status to other drugs, medicaments and biological substances; Z88.6 Allergy status to analgesic agent
CPT/HCPCS: 99284; 96360; 96361; 36415; 82962; 85025; 80053; 81001; 82803; A9270; J7030; J1815

== ENCOUNTER 2020-05-23 18:23 | Emergency (ER) | payer MEDICARE ==
[2020-05-23 18:54] LABS: ABSOLUTE EOSINOPHILS # (AUTO) 0.3 10^3/uL (0.0-0.6); ABSOLUTE LYMPHOCYTES (AUTO) 1.7 10^3/uL (0.5-4.7); ABSOLUTE MONOCYTES (AUTO) 0.5 10^3/uL (0.1-1.4); ABSOLUTE NEUT (AUTO) 2.9 10^3/uL (1.7-8.2); BASOPHILS % (AUTO) 0.6 % (0-2); EOSINOPHILS % (AUTO) 5.9 % (0-6); HEMATOCRIT 42.8 % (37.9-51.0); HEMOGLOBIN 13.9 g/dL (13.5-17.0); LYMPHOCYTES % (AUTO) 30.9 % (13-45); MEAN CORPUSCULAR HEMOGLOBIN 23.5 pg (27.0-33.4); MEAN CORPUSCULAR HGB CONC 32.5 g/dL (32.0-36.0); MEAN CORPUSCULAR VOLUME 72 fl (80-97); MONOCYTES % (AUTO) 9.4 % (3-13); PLATELET COUNT 258 10^3/uL (150-450); RED BLOOD COUNT 5.94 10^6/uL (4.35-5.55); RED CELL DISTRIBUTION WIDTH 15.1 % (11.5-14.0); SEGMENTED NEUTROPHILS % (AUTO) 53.2 % (42-78); TOTAL CELLS COUNTED % (AUTO) 100 %; WHITE BLOOD COUNT 5.4 10^3/uL (4.0-10.5)
--- NOTE | 2020-05-23 19:01 | RADIOLOGY REPORT (SQ) ---
EXAM DESCRIPTION: CHEST 2 VIEWS IMAGES COMPLETED DATE/TIME: 05/23/2020 6:46 pm REASON FOR STUDY: chest pain COMPARISON: 11/30/2019 TECHNIQUE: Frontal and lateral radiographic views of the chest acquired. NUMBER OF VIEWS: Two view. LIMITATIONS: None. FINDINGS: LUNGS AND PLEURA: No pneumothorax. No consolidation or pleural effusion. MEDIASTINUM AND HILAR STRUCTURES: Stable. HEART AND VASCULAR STRUCTURES: Stable. BONES: No acute findings. HARDWARE: None in the chest. OTHER: No other significant finding. IMPRESSION: NO ACUTE FINDINGS. TECHNICAL DOCUMENTATION: JOB ID: [id number] [id number] 2010 [employer]- All Rights Reserved Reading location - IP/workstation name: [employer]
[2020-05-23 19:12] LABS: ALBUMIN 4.6 g/dL (3.5-5.0); ALKALINE PHOSPHATASE 73 U/L (38-126); ANION GAP 11 (5-19); ASPARTATE AMINO TRANSFERASE 31 U/L (17-59); BILIRUBIN,TOTAL 0.7 mg/dL (0.2-1.3); BLOOD UREA NITROGEN 15 mg/dL (7-20); CALCIUM 9.8 mg/dL (8.4-10.2); CARBON DIOXIDE 25 mmol/L (22-30); CHLORIDE 97 mmol/L (98-107); POTASSIUM 4.2 mmol/L (3.6-5.0); TOTAL PROTEIN 7.5 g/dL (6.3-8.2)
[2020-05-23 19:14] LABS: APPEARANCE,URINE CLEAR; BILIRUBIN,URINE NEGATIVE (NEGATIVE); COLOR,URINE STRAW; GLUCOSE, URINE >=500 mg/dL (NEGATIVE); KETONES,URINE 20 mg/dL (NEGATIVE); LEUKOCYTE ESTERASE,URINE NEGATIVE (NEGATIVE); NITRITE,URINE NEGATIVE (NEGATIVE); PROTEIN,URINE NEGATIVE (NEGATIVE); URINE SPECIFIC GRAVITY 1.031; UROBILINOGEN,URINE NEGATIVE mg/dL (<2.0)
[2020-05-23 19:22] LABS: GLUCOSE 437 mg/dL (75-110)
--- NOTE | 2020-05-23 19:25 | ER Document Report ---
ED Medical Screen (RME) - General Chief Complaint: Chest Pain Stated Complaint: CHEST PAIN Time Seen by Provider: 05/23/20 19:23 Mode of Arrival: Ambulatory Information source: Patient Notes: 34-year-old male presented to ED for chest pain that started yesterday. He has had intermittent chest pain since yesterday. He states he did know if it was gas or medication or anxiety but it is just very sharp and uncomfortable. He states he does take one aspirin every day. He does have a history of PTSD anxiety and diabetes type 2. He states he was just diagnosed with diabetes type 2 and is on metformin. He has had a tonsillectomy ear tubes and went wisdom teeth extraction. He does not smoke drink or use any drugs. He states he does not have any family history of cardiac disease and has not had any cardiac disease himself. Patient is alert oriented respirations regular nonlabored sp eaking in full sentences. I have greeted and performed a rapid initial assessment of this patient. A comprehensive ED assessment and evaluation of the patient, analysis of test results and completion of medical decision making process will be conducted by an additional ED providers. TRAVEL OUTSIDE OF THE [place] IN LAST 30 DAYS: No - Related Data Allergies/Adverse Reactions: cyclobenzaprine HCl [From Flexeril] Allergy (Verified 05/09/20 00:37) ibuprofen [From Motrin] Allergy (Verified 05/09/20 00:37) ketorolac tromethamine [From Toradol] Allergy (Verified 05/09/20 00:37) lorazepam [From Ativan] Allergy (Verified 05/09/20 00:37) tramadol [Tramadol] Allergy (Verified 05/09/20 00:37) Past Medical History - Past Medical History Cardiac Medical History: Denies: Hx Atrial Fibrillation, Hx Congestive Heart Failure, Hx Heart Attack, Hx Peripheral Vascular Disease Pulmonary Medical History: Denies: Hx Asthma, Hx COPD, Hx Pneumonia, Hx Respiratory Failure Neurological Medical History: Denies: Hx Seizures Endocrine Medical History: Reports: Hx Diabetes Mellitus Type 2 Renal/ Medical History: Denies: Hx Peritoneal Dialysis GI Medical History: Reports: Hx Gastroesophageal Reflux Disease. Denies: Hx Cirrhosis, Hx Crohn's Disease, Hx Ulcerative Colitis Musculoskeltal Medical History: Denies Hx Arthritis, Denies Hx Fibromyalgia, Denies Hx Gout Psychiatric Medical History: Reports: Hx Anxiety, Hx Depression - PTSD, anxiety, Hx Post Traumatic Stress Disorder Past Surgical History: Reports: Hx Oral Surgery, Hx Tonsillectomy, Other - Tympa nostomy tubes - Immunizations Hx Diphtheria, Pertussis, Tetanus Vaccination: Yes Physical Exam - Vital signs Vitals: Temp Pulse Resp BP Pulse Ox 98.9 F 86 18 136/90 H 99 05/23/20 18:31 05/23/20 18:31 05/23/20 18:31 05/23/20 18:31 05/23/20 18:31 Course - Vital Signs Vital signs: Temp Pulse Resp BP Pulse Ox 98.9 F 86 18 136/90 H 99 05/23/20 18:31 05/23/20 18:31 05/23/20 18:31 05/23/20 18:31 05/23/20 18:31 - Laboratory Result Diagrams: 05/23/20 18:30 05/23/20 18:30 Laboratory results interpreted by me: 05/23/20 05/23/20 05/23/20 18:30 18:30 19:00 RBC 5.94 H MCV 72 L MCH 23.5 L RDW 15.1 H Sodium 132.8 L Chloride 97 L Glucose 437 H* ALT 75 H Urine Glucose (UA) >=500 H Urine Ketones 20 H
[2020-05-23] MEDS ORDERED: ASPIRIN 81 MG TABLET, CHEWABLE PO ONE (19:26)
[2020-05-23 19:34] LABS: URINE AMPHETAMINES SCREEN NEGATIVE; URINE BARBITURATES SCREEN NEGATIVE; URINE BENZODIAZEPINES SCREEN NEGATIVE; URINE COCAINE SCREEN NEGATIVE; URINE MARIJUANA (THC) SCREEN NEGATIVE; URINE METHADONE SCREEN NEGATIVE; URINE PHENCYCLIDINE SCREEN NEGATIVE
--- NOTE | 2020-05-23 20:55 | ER Document Report ---
ED Cardiac - General Chief Complaint: Chest Pain Stated Complaint: CHEST PAIN Time Seen by Provider: 05/23/20 19:23 Mode of Arrival: Ambulatory Notes: Patient is a 34-year-old male that comes to the emergency department for chief complaint of intermittent discomfort in the center of his chest that sometimes he can feel down at the top of his abdomen. He states that occasionally it feels sharp. He states he became concerned and he came in for evaluation of this. He states he has had this many times in the past and he states "they always tell me with my anxiety". He has a history of anxiety and PTSD, he also has a history of uncontrolled type 2 diabetes, he states that his primary care still will not fill his Janumet but he is on metformin 750 mg extended release twice a day and he just ran out of his Glypten. He denies alcohol, smoking, recreational drugs, personal or family history of cardiac disease. He states he is successfully losing weight although he does admit that he ate a pancake meal today. TRAVEL OUTSIDE OF THE [place] IN LAST 30 DAYS: No - Related Data Allergies/Adverse Reactions: cyclobenzaprine HCl [From Flexeril] Allergy (Verified 05/09/20 00:37) ibuprofen [From Motrin] Allergy (Verified 05/09/20 00:37) ketorolac tromethamine [From Toradol] Allergy (Verified 05/09/20 00:37) lorazepam [From Ativan] Allergy (Verified 05/09/20 00:37) tramadol [Tramadol] Allergy (Verified 05/09/20 00:37) Past Medical History - General Information source: Patient - Social History Smoking Status: Never Smoker Frequency of alcohol use: None Drug Abuse: None Lives with: Family Family History: Reviewed & Not Pertinent, DM - Past Medical History Cardiac Medical History: Denies: Hx Atrial Fibrillation, Hx Congestive Heart Failure, Hx Heart Attack, Hx Peripheral Vascular Disease Pulmonary Medical History: Denies: Hx Asthma, Hx COPD, Hx Pneumonia, Hx Respiratory Failure Neurological Medical History: Denies: Hx Seizures Endocrine Medical History: Reports: Hx Diabetes Mellitus Type 2 Renal/ Medical History: Denies: Hx Peritoneal Dialysis GI Medical History: Reports: Hx Gastroesophageal Reflux Disease. Denies: Hx Cirrhosis, Hx Crohn's Disease, Hx Ulcerative Colitis Musculoskeletal Medical History: Denies Hx Arthritis, Denies Hx Fibromyalgia, Denies Hx Gout Psychiatric Medical History: Reports: Hx Anxiety, Hx Depression - PTSD, anxiety, Hx Post Traumatic Stress Disorder Past Surgical History: Reports: Hx Oral Surgery, Hx Tonsillectomy, Other - Tympanostomy tubes - Immunizations Hx Diphtheria, Pertussis, Tetanus Vaccination: Yes Review of Systems - Review of Systems Constitutional: No symptoms reported EENT: No symptoms reported Cardiovascular: See HPI Respiratory: No symptoms reported Gastrointestinal: See HPI Genitourinary: No symptoms reported Male Genitourinary: No symptoms reported Musculoskeletal: No symptoms reported Skin: No symptoms reported Hematologic/Lymphatic: No symptoms reported Neurological/Psychological: See HPI Physical Exam - Vital signs Vitals: Temp Pulse Resp BP Pulse Ox 98.9 F 86 18 136/90 H 99 05/23/20 18:31 05/23/20 18:31 05/23/20 18:31 05/23/20 18:31 05/23/20 18:31 - Notes Notes: GENERAL: Alert, interacts well. No acute distress. HEAD: Normocephalic, atraumatic. EYES: Pupils equal, round, and reactive to light. Extraocular movements intact. ENT: Oral mucosa moist, tongue midline. Oropharynx unremarkable. Airway patent. NECK: Full range of motion. Supple. Trachea midline. No lymphadenopathy. LUNGS: Clear to auscultation bilaterally, no wheezes, rales, or rhonchi. No respiratory distress. Non-tender chest wall. HEART: Regular rate and rhythm. No murmur ABDOMEN: Soft, non-tender. Non-distended. Bowel sounds present in all 4 q uadrants. GENITOURINARY: Deferred EXTREMITIES: Moves all 4 extremities spontaneously. No edema, normal radial and dorsalis pedis pulses bilaterally. No cyanosis. BACK: no cervical, thoracic, lumbar midline tenderness. No saddle anesthesia, normal distal neurovascular exam. Moves all extremities in full range of motion. NEUROLOGICAL: Alert and oriented x3. Normal speech. Cranial nerves II through X II grossly intact. Strength 5/5 in all extremities. PSYCH: Speaks constantly, rapidly, and anxiously. Otherwise unremarkable. SKIN: Warm, dry, normal turgor. No rashes or lesions noted. Course - Re-evaluation Re-evalutation: Patient speaks anxiously but he is well-appearing otherwise. Physical exam unremarkable. Vital signs unremarkable. CBC unremarkable. Chemistry shows hyperglycemia without acidosis. Chest x-ray, EKG, troponin without acute findings. Troponins cycled and unremarkable. Blood glucose is downtrending af ter treatment. I discussed with patient. Patient is very relieved, he states that after the GI cocktail I gave him his symptoms are completely resolved. Patient is also reporting frequent reflux type symptoms now. Based on his overall work-up, response to treatment, risk factors, I have very low suspicion of ACS. Patient will be treated for upper gastrointestinal inflammation, provided with prescription of his empty medication, discussed follow-up and return precautions. Patient states understanding and agreement with plan. - Vital Signs Vital signs: Temp Pulse Resp BP Pulse Ox 98.6 F 86 20 156/88 H 100 05/24/20 00:00 05/23/20 18:31 05/24/20 00:02 05/24/20 00:02 05/24/20 00:02 - Laboratory Result Diagrams: 05/23/20 18:30 05/23/20 18:30 Laboratory results interpreted by me: 05/23/20 05/23/20 05/23/20 18:30 18:30 18:30 RBC 5.94 H MCV 72 L MCH 23.5 L RDW 15.1 H Sodium 132.8 L Chloride 97 L Glucose 437 H* POC Glucose ALT 75 H Lipase 449.3 H Urine Glucose (UA) Urine Ketones 05/23/20 05/23/20 19:00 22:23 RBC MCV MCH RDW Sodium Chloride Glucose POC Glucose 316 H ALT Lipase Urine Glucose (UA) >=500 H Urine Ketones 20 H - EKG Interpretation by Me Additional EKG results interpreted by me: EKG shows sinus rhythm at a rate of 96, QTC of 440, AK interval of 144. Left axis deviation. No T wave inversions or ST segment changes in consecutive leads. No significant change compared to prior. Discharge - Discharge Clinical Impression: Has run out of medications, Hyperglycemia, Anxiety Chest pain Qualifiers: Chest pain type: unspecified Qualified Code(s): R07.9 - Chest pain, unspecified Condition: Stable Disposition: HOME, SELF-CARE Additional Instructions: Your chest and upper abdomen discomfort appear to be coming from inflammation of the upper gastrointestinal tract. I recommend the Carafate and Pepcid as prescribed. You can take Tylenol for pain. Avoid NSAIDs, alcohol, smoking, caffeine, spicy food. Start with clear fluids, progress to bland diet, slowly resume normal diet. Follow-up with primary care for additional management of your diabetes. Return if you worsen including vomiting, vomiting blood, black stools, severe pain, fever of 100.4 or greater, or any other concerning or worsening symptoms. Prescriptions: RX: Sucralfate [Carafate 1 gm Tablet] 1 gm PO QID #20 tablet RX: Sitagliptin Phosphate [Januvia 50 mg Tablet] 50 mg PO BID #60 tablet Famotidine [Pepcid 20 mg Tablet] 20 mg PO BID #14 tablet
[2020-05-23] MEDS ORDERED: MAG HYDROX/AL HYDROX/SIMETH SUSP 30 ML UDCUP PO ONE (21:04)
[2020-05-23] MEDS ORDERED: METOCLOPRAMIDE HCL ORAL SOLN 10 MG/10 ML UDCUP PO ONE (21:04)
[2020-05-23] MEDS ORDERED: LIDOCAINE 2% VISCOUS SOLN 15 ML UDCUP PO ONE (21:04)
[2020-05-23] MEDS ORDERED: NORMAL SALINE 1000 ML 1,000 ML IV ONE ×2 (21:05→22:30)
[2020-05-23] MEDS ORDERED: INSULIN REG, HUMAN 100 UNIT/ML 3 ML VIAL (PYX) SUBCUT ONE ×2 (22:30→22:45)
[2020-05-24 00:36] VITALS: BP 156/88
--- NOTE | 2020-05-24 01:04 | EKG REPORT ---
SEVERITY:- ABNORMAL ECG - SINUS RHYTHM LEFT ANTERIOR FASCICULAR BLOCK : Confirmed by: Marcy Haskins MD 24-May-2020 01:04:07
== END 2020-05-24 00:29 | disposition home or self-care (01) ==
LOC: ER 18:23
DX: R07.9 Chest pain, unspecified (principal); K52.9 Noninfective gastroenteritis and colitis, unspecified; F41.9 Anxiety disorder, unspecified; E11.65 Type 2 diabetes mellitus with hyperglycemia; Z79.84 Long term (current) use of oral hypoglycemic drugs; Z87.19 Personal history of other diseases of the digestive system; Z88.8 Allergy status to other drugs, medicaments and biological substances; Z88.6 Allergy status to analgesic agent
CPT/HCPCS: 93005; 99285; 96360; 96361; 36415; 82962; 83690; 83735; 85025; 80053; 81001; 84484; 80307; 71046; 93010; A9270 ×4; J3490; J7030; J1815

== ENCOUNTER 2020-06-08 11:40 | Emergency (ER) | payer MEDICARE ==
[2020-06-08 12:54] LABS: ABSOLUTE BASOPHILS # (AUTO) 0.1 10^3/uL (0.0-0.2); ABSOLUTE EOSINOPHILS # (AUTO) 0.3 10^3/uL (0.0-0.6); ABSOLUTE LYMPHOCYTES (AUTO) 1.8 10^3/uL (0.5-4.7); ABSOLUTE MONOCYTES (AUTO) 0.7 10^3/uL (0.1-1.4); ABSOLUTE NEUT (AUTO) 3.4 10^3/uL (1.7-8.2); BASOPHILS % (AUTO) 0.9 % (0-2); EOSINOPHILS % (AUTO) 5.2 % (0-6); HEMATOCRIT 42.5 % (37.9-51.0); HEMOGLOBIN 13.5 g/dL (13.5-17.0); LYMPHOCYTES % (AUTO) 28.6 % (13-45); MEAN CORPUSCULAR HGB CONC 31.8 g/dL (32.0-36.0); MEAN CORPUSCULAR VOLUME 72 fl (80-97); MONOCYTES % (AUTO) 10.5 % (3-13); PLATELET COUNT 237 10^3/uL (150-450); RED BLOOD COUNT 5.88 10^6/uL (4.35-5.55); RED CELL DISTRIBUTION WIDTH 14.9 % (11.5-14.0); SEGMENTED NEUTROPHILS % (AUTO) 54.8 % (42-78); TOTAL CELLS COUNTED % (AUTO) 100 %; WHITE BLOOD COUNT 6.2 10^3/uL (4.0-10.5)
[2020-06-08 13:13] LABS: ALBUMIN 4.5 g/dL (3.5-5.0); ALKALINE PHOSPHATASE 62 U/L (38-126); ANION GAP 11 (5-19); ASPARTATE AMINO TRANSFERASE 33 U/L (17-59); BILIRUBIN,TOTAL 0.6 mg/dL (0.2-1.3); BLOOD UREA NITROGEN 15 mg/dL (7-20); CALCIUM 9.7 mg/dL (8.4-10.2); CARBON DIOXIDE 25 mmol/L (22-30); CHLORIDE 98 mmol/L (98-107); POTASSIUM 4.2 mmol/L (3.6-5.0); TOTAL PROTEIN 7.3 g/dL (6.3-8.2)
--- NOTE | 2020-06-08 13:26 | ER Document Report ---
ED General - General Chief Complaint: Abdominal Pain Stated Complaint: HEADACHE,NAUSEA,SORE THROAT Time Seen by Provider: 06/08/20 12:57 Notes: HPI: Patient is a 34-year-old male with past medical history of type 2 diabetes who presents today with multiple complaints. He states he has had some abdominal intermittent discomfort earlier today which is resolved. He states he has metallic taste in his mouth and feels as if he has a dry mouth with some increased urination. He denies any dysuria, fevers, vomiting, or diarrhea. No real aggravating relieving factors. He is currently pain-free. Patient has been seen here multiple times in the past with a recent evaluation for chest pain. Patient has known and admitted anxiety. He denies any chest pain at this time. ROS: See HPI All other review of systems reviewed and otherwise negative Reviewed vital signs and nursing note as charted by RN. PHYSICAL EXAM: CONSTITUTIONAL: Alert and oriented and responds appropriately to questions. Well-appearing; well-nourished HEAD: Normocephalic; atraumatic EYES: PERRL; Sclerae non-icteric ENT: Normal nose; no rhinorrhea; moist mucous membranes; pharynx without lesions noted NECK: Supple without meningismus; non-tender; no cervical lymphadenopathy, no masses CARD: Regular rate and rhythm; no murmurs; symmetric distal pulses RESP: Normal chest excursion without splinting or tachypnea; breath sounds clear and equal bilaterally ABD/GI: Normal bowel sounds; non-distended; soft, non-tender to deep palpation of all 4 quadrants of the abdomen BACK: The back appears normal and is non-tender to palpation EXT: Normal ROM in all joints; non-tender to palpation; no edema SKIN: No acute lesions noted NEURO: CN 2-12 intact; 5/5 bilateral upper and lower extremity strength with sensation intact to light touch PSYCH: The patient's mood and manner are appropriate. Grooming and personal hygiene are appropriate. TRAVEL OUTSIDE OF THE [place] IN LAST 30 DAYS: No - Related Data Allergies/Adverse Reactions: cyclobenzaprine HCl [From Flexeril] Allergy (Verified 05/09/20 00:37) ibuprofen [From Motrin] Allergy (Verified 05/09/20 00:37) ketorolac tromethamine [From Toradol] Allergy (Verified 05/09/20 00:37) lorazepam [From Ativan] Allergy (Verified 05/09/20 00:37) tramadol [Tramadol] Allergy (Verified 05/09/20 00:37) Past Medical History - Social History Smoking Status: Unknown if Ever Smoked Frequency of alcohol use: None Drug Abuse: None Family History: Reviewed & Not Pertinent, DM - Past Medical History Cardiac Medical History: Denies: Hx Atrial Fibrillation, Hx Congestive Heart Failure, Hx Heart Attack, Hx Peripheral Vascular Disease Pulmonary Medical History: Denies: Hx Asthma, Hx COPD, Hx Pneumonia, Hx Respiratory Failure Neurological Medical History: Denies: Hx Seizures Endocrine Medical History: Reports: Hx Diabetes Mellitus Type 2 Renal/ Medical History: Denies: Hx Peritoneal Dialysis GI Medical History: Reports: Hx Gastroesophageal Reflux Disease. Denies: Hx Cirrhosis, Hx Crohn's Disease, Hx Ulcerative Colitis Musculoskeletal Medical History: Denies Hx Arthritis, Denies Hx Fibromyalgia, Denies Hx Gout Psychiatric Medical History: Reports: Hx Anxiety, Hx Depression - PTSD, anxiety, Hx Post Traumatic Stress Disorder Past Surgical History: Reports: Hx Oral Surgery, Hx Tonsillectomy, Other - Tympanostomy tubes - Immunizations Hx Diphtheria, Pertussis, Tetanus Vaccination: Yes Physical Exam - Vital signs Vitals: Temp Pulse Resp BP Pulse Ox 98.4 F 92 16 133/86 H 95 06/08/20 12:05 06/08/20 12:05 06/08/20 12:05 06/08/20 12:05 06/08/20 12:05 Course - Re-evaluation Re-evalutation: 06/08/20 13:26 Given the above history and physical examination, I will repeat the patient's electrolytes as well as a complete metabolic panel and obtain a urine analysis. I have a very low suspicion for acute intra-abdominal infectious process requiring intervention. Patient denies any pain and has no tenderness upon repeat palpation of the abdomen. 06/08/20 16:21 Labs as recorded. Sugars have improved. No vomiting here. Patient states he actually has not been taking the Januvia correctly until 3 days ago. He was only taking it once a day. Patient still denies abdominal pain at this time. Patient still has an elevated lipase from his previous visit in early May. Patient did not have an ultrasound at that time. I will order an ultrasound at this time. 06/08/20 17:39 Small amount of sludge in the gallbladder. Still no tenderness. Patient will be discharged home with strict return precautions and [facility]. - Vital Signs Vital signs: Temp Pulse Resp BP Pulse Ox 98.4 F 92 16 133/86 H 95 06/08/20 12:05 06/08/20 12:05 06/08/20 12:05 06/08/20 12:05 06/08/20 12:05 - Laboratory Result Diagrams: 06/08/20 12:40 06/08/20 12:40 Laboratory results interpreted by me: 06/08/20 06/08/20 06/08/20 12:40 12:40 12:40 RBC 5.88 H MCV 72 L MCH 23.0 L MCHC 31.8 L RDW 14.9 H Sodium 133.6 L Glucose 416 H* POC Glucose ALT 90 H Lipase 431.7 H Urine Glucose (UA) Urine Ketones Urine Blood 06/08/20 06/08/20 13:50 15:07 RBC MCV MCH MCHC RDW Sodium Glucose POC Glucose 348 H ALT Lipase Urine Glucose (UA) >=500 H Urine Ketones 20 H Urine Blood SMALL H Discharge - Discharge Clinical Impression: Hyperglycemia, Elevation of serum amylase level with elevation of serum lipase level Condition: Good Disposition: HOME, SELF-CARE Additional Instructions: Come back immediately for any persistently elevated glucose, fevers, vomiting, return of abdominal pain, weakness or numbness, or any other acute problems. Please take your diabetic medications as prescribed and follow[facility]up with [facility] for [facility].
[2020-06-08 13:35] LABS: GLUCOSE 416 mg/dL (75-110)
[2020-06-08] MEDS ORDERED: NORMAL SALINE 1000 ML 1,000 ML IV ONE ×2 (13:36→15:54)
[2020-06-08 14:22] LABS: VENOUS BLOOD BASE EXCESS -0.9 mmol/L; VENOUS BLOOD HCO3 24.5 mmol/L (20-32); VENOUS BLOOD PCO2 43.1 mmHg (35-63); VENOUS BLOOD PH 7.37 (7.30-7.42)
[2020-06-08 14:31] LABS: APPEARANCE,URINE CLEAR; BILIRUBIN,URINE NEGATIVE (NEGATIVE); COLOR,URINE STRAW; GLUCOSE, URINE >=500 mg/dL (NEGATIVE); KETONES,URINE 20 mg/dL (NEGATIVE); LEUKOCYTE ESTERASE,URINE NEGATIVE (NEGATIVE); NITRITE,URINE NEGATIVE (NEGATIVE); PROTEIN,URINE NEGATIVE (NEGATIVE); URINE SPECIFIC GRAVITY 1.032; UROBILINOGEN,URINE NEGATIVE mg/dL (<2.0)
--- NOTE | 2020-06-08 17:18 | RADIOLOGY REPORT (SQ) ---
EXAM DESCRIPTION: U/S ABDOMEN LIMITED W/O DOP IMAGES COMPLETED DATE/TIME: 06/08/2020 4:59 pm REASON FOR STUDY: 8; elevatd lipase COMPARISON: None. TECHNIQUE: Dynamic and static grayscale images acquired of the abdomen and recorded on PACS. Additio nal selected color Doppler and spectral images recorded. LIMITATIONS: None. FINDINGS: PANCREAS: No masses. Visualized pancreatic duct normal caliber. LIVER: Increased echogenicity with focal fatty sparing near the gallbladder fossa. LIVER VASCULATURE: Normal directional flow of the main portal vein and hepatic veins. GALLBLADDER: No stones. There is some sludge. There is no wall thickening. ULTRASOUND-DETECTED ANGLIN'S SIGN: Negative. INTRAHEPATIC DUCTS AND COMMON DUCT: CBD and intrahepatic ducts normal caliber. No filling defects. AORTA: No aneurysm. RIGHT KIDNEY: Normal size, 10.3 cm. Normal echogenicity. No solid or suspicious masses. No hydronep hrosis. No calcifications. PERITONEAL AND RIGHT PLEURAL SPACE: No ascites or effusions. OTHER: No other significant findings. IMPRESSION: Hepatic steatosis with focal fatty sparing at the gallbladder fossa. Small amount of sl udge in the gallbladder. TECHNICAL DOCUMENTATION: JOB ID: [id number] 2010 [email or web address]- All Rights Reserved Reading location - IP/workstation name: [email or web address]
[2020-06-08 18:00] VITALS: BP 118/73
== END 2020-06-08 17:59 | disposition home or self-care (01) ==
LOC: ER 11:40
DX: E11.65 Type 2 diabetes mellitus with hyperglycemia (principal); R79.89 Other specified abnormal findings of blood chemistry; R43.8 Other disturbances of smell and taste; R68.2 Dry mouth, unspecified; Z79.84 Long term (current) use of oral hypoglycemic drugs; Z88.8 Allergy status to other drugs, medicaments and biological substances; Z88.6 Allergy status to analgesic agent
CPT/HCPCS: 99285; 96360; 96361; 36415; 82962; 83690; 85025; 80053; 81001; 82803; 76705; J7030

== ENCOUNTER 2020-06-16 04:08 | Emergency (ER) | payer MEDICARE ==
[2020-06-16 05:04] LABS: APPEARANCE,URINE CLEAR; BILIRUBIN,URINE NEGATIVE (NEGATIVE); COLOR,URINE STRAW; GLUCOSE, URINE >=500 mg/dL (NEGATIVE); KETONES,URINE TRACE mg/dL (NEGATIVE); LEUKOCYTE ESTERASE,URINE NEGATIVE (NEGATIVE); NITRITE,URINE NEGATIVE (NEGATIVE); PROTEIN,URINE NEGATIVE (NEGATIVE); URINE SPECIFIC GRAVITY 1.029; UROBILINOGEN,URINE NEGATIVE mg/dL (<2.0)
[2020-06-16 05:06] LABS: ABSOLUTE BASOPHILS # (AUTO) 0.1 10^3/uL (0.0-0.2); ABSOLUTE EOSINOPHILS # (AUTO) 0.4 10^3/uL (0.0-0.6); ABSOLUTE LYMPHOCYTES (AUTO) 2.4 10^3/uL (0.5-4.7); ABSOLUTE MONOCYTES (AUTO) 0.6 10^3/uL (0.1-1.4); ABSOLUTE NEUT (AUTO) 3.2 10^3/uL (1.7-8.2); BASOPHILS % (AUTO) 0.8 % (0-2); EOSINOPHILS % (AUTO) 6.3 % (0-6); HEMATOCRIT 44.9 % (37.9-51.0); HEMOGLOBIN 14.3 g/dL (13.5-17.0); LYMPHOCYTES % (AUTO) 35.7 % (13-45); MEAN CORPUSCULAR HEMOGLOBIN 23.2 pg (27.0-33.4); MEAN CORPUSCULAR HGB CONC 31.9 g/dL (32.0-36.0); MEAN CORPUSCULAR VOLUME 73 fl (80-97); MONOCYTES % (AUTO) 8.7 % (3-13); PLATELET COUNT 250 10^3/uL (150-450); RED BLOOD COUNT 6.17 10^6/uL (4.35-5.55); RED CELL DISTRIBUTION WIDTH 14.9 % (11.5-14.0); SEGMENTED NEUTROPHILS % (AUTO) 48.5 % (42-78); TOTAL CELLS COUNTED % (AUTO) 100 %; WHITE BLOOD COUNT 6.6 10^3/uL (4.0-10.5)
[2020-06-16 05:17] LABS: ALBUMIN 4.8 g/dL (3.5-5.0); ALKALINE PHOSPHATASE 67 U/L (38-126); ANION GAP 11 (5-19); ASPARTATE AMINO TRANSFERASE 34 U/L (17-59); BILIRUBIN,TOTAL 0.6 mg/dL (0.2-1.3); BLOOD UREA NITROGEN 16 mg/dL (7-20); CALCIUM 10.2 mg/dL (8.4-10.2); CARBON DIOXIDE 23 mmol/L (22-30); CHLORIDE 99 mmol/L (98-107); POTASSIUM 4.5 mmol/L (3.6-5.0); TOTAL PROTEIN 7.7 g/dL (6.3-8.2)
[2020-06-16 05:37] LABS: GLUCOSE 537 mg/dL (75-110)
[2020-06-16] MEDS ORDERED: NORMAL SALINE 1000 ML 1,000 ML IV PRN (05:59)
[2020-06-16] MEDS ORDERED: INSULIN REG, HUMAN 100 UNIT/ML 3 ML VIAL (PYX) IV ONE (07:47)
--- NOTE | 2020-06-16 08:34 | EKG REPORT ---
SEVERITY:- ABNORMAL ECG - SINUS RHYTHM LEFT ANTERIOR FASCICULAR BLOCK : Confirmed by: Marcy Haskins MD 16-Jun-2020 08:33:38
[2020-06-16] MEDS ORDERED: INSULIN LISPRO 100 UNIT/ML 3 ML VIAL ONE (10:19)
--- NOTE | 2020-06-16 10:20 | ER Document Report ---
ED Blood Sugar Problem - General Chief Complaint: High Blood Sugar Stated Complaint: HIGH BLOOD SUGAR Time Seen by Provider: 06/16/20 07:47 Mode of Arrival: Ambulatory Information source: Patient TRAVEL OUTSIDE OF THE [place] IN LAST 30 DAYS: No - HPI Notes: Patient comes in complaining of headache and high blood sugars. He states his headache is been present for 2 to 3 days. It is frontal and throbbing. It is worse with movement better with rest. Does radiate across the front of his head. He states that his blood sugars have been 400 or greater for several days. He states he was recently admitted to the hospital and they were never able to get his blood sugars below 290. He states he was sent home with to oral medicines, metformin and Januvia. He states he has been taking these as instructed without significant change of his blood sugar levels. He states [facility] is [facility] but does not have an appointment there until August. - Related Data Allergies/Adverse Reactions: cyclobenzaprine HCl [From Flexeril] Allergy (Verified 06/16/20 04:14) ibuprofen [From Motrin] Allergy (Verified 06/16/20 04:14) ketorolac tromethamine [From Toradol] Allergy (Verified 06/16/20 04:14) lorazepam [From Ativan] Allergy (Verified 06/16/20 04:14) tramadol [Tramadol] Allergy (Verified 06/16/20 04:14) Home Medications: Clonazepam. Prilosec. Junivia. Metformin Past Medical History - General Information source: Patient - Social History Smoking Status: Never Smoker Frequency of alcohol use: None Drug Abuse: None Family History: Reviewed & Not Pertinent, DM Patient has homicidal ideation: No - Past Medical History Cardiac Medical History: Denies: Hx Atrial Fibrillation, Hx Congestive Heart Failure, Hx Heart Attack, Hx Peripheral Vascular Disease Pulmonary Medical History: Denies: Hx Asthma, Hx COPD, Hx Pneumonia, Hx Respiratory Failure Neurological Medical History: Denies: Hx Seizures Endocrine Medical History: Reports: Hx Diabetes Mellitus Type 2 Renal/ Medical History: Denies: Hx Peritoneal Dialysis GI Medical History: Reports: Hx Gastroesophageal Reflux Disease. Denies: Hx Cirrhosis, Hx Crohn's Disease, Hx Ulcerative Colitis Musculoskeletal Medical History: Denies Hx Arthritis, Denies Hx Fibromyalgia, Denies Hx Gout Psychiatric Medical History: Reports: Hx Anxiety, Hx Depression - PTSD, anxiety, Hx Post Traumatic Stress Disorder Past Surgical History: Reports: Hx Oral Surgery, Hx Tonsillectomy, Other - Tympanostomy tubes - Immunizations Hx Diphtheria, Pertussis, Tetanus Vaccination: Yes Review of Systems - Review of Systems Constitutional: Malaise, Weakness. denies: Chills, Fever Cardiovascular: denies: Chest pain, Palpitations Respiratory: denies: Cough, Short of breath -: Yes All other systems reviewed and negative Physical Exam - Vital signs Vitals: Temp Pulse Resp BP Pulse Ox 97.5 F 97 18 158/91 H 97 06/16/20 04:12 06/16/20 04:12 06/16/20 04:12 06/16/20 04:12 06/16/20 04:12 Interpretation: Hypertensive - General General appearance: Appears well, Alert - HEENT Head: Normocephalic, Atraumatic Eyes: Normal Pupils: PERRL - Respiratory Respiratory status: No respiratory distress Chest status: Nontender Breath sounds: Normal Chest palpation: Normal - Cardiovascular Rhythm: Regular Heart sounds: Normal auscultation Murmur: No - Abdominal Inspection: Normal Distension: No distension Bowel sounds: Normal Tenderness: Nontender Organomegaly: No organomegaly - Back Back: Normal, Nontender - Extremities General upper extremity: Normal inspection, Nontender, Normal color, Normal ROM, Normal temperature General lower extremity: Normal inspection, Nontender, Normal color, Normal ROM, Normal temperature, Normal weight bearing. No: Toni's sign - Neurological Neuro grossly intact: Yes Cognition: Normal Orientation: AAOx4 [place] Coma Scale Eye Opening: Spontaneous Lisa Coma Scale Verbal: Oriented Lisa Coma Scale Motor: Obeys Commands [place] Coma Scale Total: 15 Speech: Normal Motor strength normal: LUE, RUE, LLE, RLE Sensory: Normal - Psychological Associated symptoms: Normal affect, Normal mood - Skin Skin Temperature: Warm Skin Moisture: Dry Skin Color: Normal Course - Re-evaluation Re-evalutation: 06/16/20 10:16 Patient presents with symptoms of elevated blood sugar. He is not in diabetic ketoacidosis. His blood sugar here is slightly over 400. He has been treated with fluids and insulin. The sugar now is under 400. Patient states that despite 5 days in the hospital his blood sugars are never less than 290. I do not believe that patient would benefit from me keeping him here longer to get his blood sugar lower. I think the best treatment for the patient is to see a family physician who can help arrange more permanent blood sugar management. This appointment has been arranged at 2 PM here in [facility] with a family physician. Patient will be discharged to follow-up with the family physician clinic at 2:00 today. - Vital Signs Vital signs: Temp Pulse Resp BP Pulse Ox 97.5 F 97 18 158/91 H 97 06/16/20 04:12 06/16/20 04:12 06/16/20 04:12 06/16/20 04:12 06/16/20 04:12 - Laboratory Result Diagrams: 06/16/20 04:40 06/16/20 04:40 Laboratory results interpreted by me: 06/16/20 06/16/20 06/16/20 04:23 04:40 04:40 RBC 6.17 H MCV 73 L MCH 23.2 L MCHC 31.9 L RDW 14.9 H Eos % (Auto) 6.3 H Sodium 132.8 L Glucose 537 H* POC Glucose 492 H* ALT 99 H Urine Glucose (UA) Urine Ketones 06/16/20 06/16/20 06/16/20 04:40 07:19 08:30 RBC MCV MCH MCHC RDW Eos % (Auto) Sodium Glucose POC Glucose 405 H* 376 H ALT Urine Glucose (UA) >=500 H Urine Ketones TRACE H Discharge - Discharge Clinical Impression: Hyperglycemia Condition: Stable Disposition: HOME, SELF-CARE Instructions: Diabetes ([facility]), Hyperglycemia ([facility]) Additional Instructions: Please go to your appointment at 2 PM today Forms: Return to Work Referrals: SHAYAN GALLEGOS MD [COMMUNITY BASED STAFF] - 06/16/20 2:00 pm
[2020-06-16] MEDS ORDERED: INSULIN REG, HUMAN 100 UNIT/ML 3 ML VIAL (PYX) ONE (10:22)
[2020-06-16 11:08] VITALS: BP 138/88
== END 2020-06-16 11:07 | disposition home or self-care (01) ==
LOC: ER 04:08
DX: E11.65 Type 2 diabetes mellitus with hyperglycemia (principal); R51 Headache; R53.81 Other malaise; R53.1 Weakness; I44.4 Left anterior fascicular block; Z79.899 Other long term (current) drug therapy
CPT/HCPCS: 93005; 99285; 36415; 82962; 85025; 80053; 81001; 93010; A9270; J1815

== ENCOUNTER 2020-07-26 13:17 | Emergency (ER) | payer MEDICARE ==
[2020-07-26] MEDS ORDERED: ASPIRIN 81 MG TABLET, CHEWABLE PO ONE (13:36)
--- NOTE | 2020-07-26 13:39 | ER Document Report ---
ED Medical Screen (RME) - General Chief Complaint: Chest Pain Stated Complaint: CHEST PAIN Time Seen by Provider: 07/26/20 13:29 TRAVEL OUTSIDE OF THE [place] IN LAST 30 DAYS: No - HPI Notes: 07/26/20 13:36 35-year-old male to the emergency department with complaints of midsternal constant chest pain for 1 week and then worsening chest pain this morning to the left side of his chest. He states he also feels like his heart is racing. Denies shortness of breath, diaphoresis, nausea vomiting, radiation into the back or down the arm. He took a baby aspirin at the time of his symptoms were the worst but he states that he got worried when he started to feel more racing and more pain. He rates his pain as a 3 out of 5. He has never had a heart attack and nobody in his family has had a heart attack. He is a diabetic and was diagnosed several months ago. He takes metformin and is supposed to take Lantus but has been hesitant to take the Lantus because his sugars been running in the 110s this week. He is not a smoker. He denies any leg swelling. Denies increase in CP with movement or deep breath. I performed a brief medical screening exam on the patient determined that the patient needs further evaluation and management by main side provider. I have placed initial orders to help expedite care. - Related Data Allergies/Adverse Reactions: cyclobenzaprine HCl [From Flexeril] Allergy (Verified 06/16/20 04:14) ibuprofen [From Motrin] Allergy (Verified 06/16/20 04:14) ketorolac tromethamine [From Toradol] Allergy (Verified 06/16/20 04:14) lorazepam [From Ativan] Allergy (Verified 06/16/20 04:14) tramadol [Tramadol] Allergy (Verified 06/16/20 04:14) Home Medications: metformin, lantus, lexapro, Past Medical History - Social History Frequency of alcohol use: None Drug Abuse: None - Past Medical History Cardiac Medical History: Denies: Hx Atrial Fibrillation, Hx Congestive Heart Failure, Hx Heart Attack, Hx Peripheral Vascular Disease Pulmonary Medical History: Denies: Hx Asthma, Hx COPD, Hx Pneumonia, Hx Respiratory Failure Neurological Medical History: Denies: Hx Seizures Endocrine Medical History: Reports: Hx Diabetes Mellitus Type 2 Renal/ Medical History: Denies: Hx Peritoneal Dialysis GI Medical History: Reports: Hx Gastroesophageal Reflux Disease. Denies: Hx Cirrhosis, Hx Crohn's Disease, Hx Ulcerative Colitis Musculoskeltal Medical History: Denies Hx Arthritis, Denies Hx Fibromyalgia, Denies Hx Gout Psychiatric Medical History: Reports: Hx Anxiety, Hx Depression - PTSD, anxiety, Hx Post Traumatic Stress Disorder Past Surgical History: Reports: Hx Oral Surgery, Hx Tonsillectomy, Other - Tympanostomy tubes - Immunizations Hx Diphtheria, Pertussis, Tetanus Vaccination: Yes Physical Exam - Vital signs Vitals: Temp Pulse Resp BP Pulse Ox 98.3 F 72 18 129/83 H 94 07/26/20 13:35 07/26/20 13:35 07/26/20 13:35 07/26/20 13:35 07/26/20 13:35 Course - Vital Signs Vital signs: Temp Pulse Resp BP Pulse Ox 98.3 F 72 18 129/83 H 94 07/26/20 13:35 07/26/20 13:35 07/26/20 13:35 07/26/20 13:35 07/26/20 13:35
[2020-07-26 14:04] LABS: ABSOLUTE BASOPHILS # (AUTO) 0.1 10^3/uL (0.0-0.2); ABSOLUTE EOSINOPHILS # (AUTO) 0.4 10^3/uL (0.0-0.6); ABSOLUTE LYMPHOCYTES (AUTO) 1.7 10^3/uL (0.5-4.7); ABSOLUTE MONOCYTES (AUTO) 0.5 10^3/uL (0.1-1.4); BASOPHILS % (AUTO) 1.2 % (0-2); EOSINOPHILS % (AUTO) 7.1 % (0-6); HEMATOCRIT 40.7 % (37.9-51.0); HEMOGLOBIN 13.2 g/dL (13.5-17.0); LYMPHOCYTES % (AUTO) 29.7 % (13-45); MEAN CORPUSCULAR HEMOGLOBIN 23.5 pg (27.0-33.4); MEAN CORPUSCULAR HGB CONC 32.5 g/dL (32.0-36.0); MEAN CORPUSCULAR VOLUME 73 fl (80-97); MONOCYTES % (AUTO) 8.9 % (3-13); PLATELET COUNT 233 10^3/uL (150-450); RED BLOOD COUNT 5.61 10^6/uL (4.35-5.55); RED CELL DISTRIBUTION WIDTH 16.2 % (11.5-14.0); SEGMENTED NEUTROPHILS % (AUTO) 53.1 % (42-78); TOTAL CELLS COUNTED % (AUTO) 100 %; WHITE BLOOD COUNT 5.6 10^3/uL (4.0-10.5)
--- NOTE | 2020-07-26 14:17 | RADIOLOGY REPORT (SQ) ---
EXAM DESCRIPTION: CHEST 2 VIEWS IMAGES COMPLETED DATE/TIME: 07/26/2020 2:06 pm REASON FOR STUDY: chest pain, palpitations COMPARISON: 05/23/2020 EXAM PARAMETERS: NUMBER OF VIEWS: two views TECHNIQUE: Digital Frontal and Lateral radiographic views of the chest acquired. RADIATION DOSE: NA LIMITATIONS: none FINDINGS: LUNGS AND PLEURA: No opacities, masses or pneumothorax. No pleural effusion. MEDIASTINUM AND HILAR STRUCTURES: No masses or contour abnormalities. HEART AND VASCULAR STRUCTURES: Heart normal size. No evidence for failure. BONES: No acute findings. HARDWARE: None in the chest. OTHER: No other significant finding. IMPRESSION: NO ACUTE RADIOGRAPHIC FINDING IN THE CHEST. TECHNICAL DOCUMENTATION: JOB ID: [id number] 2010 [employer]- All Rights Reserved Reading location - IP/workstation name: [email or web address]
[2020-07-26 14:20] LABS: ALBUMIN 4.6 g/dL (3.5-5.0); ALKALINE PHOSPHATASE 44 U/L (38-126); ANION GAP 9 (5-19); ASPARTATE AMINO TRANSFERASE 33 U/L (17-59); BILIRUBIN,DIRECT 0.2 mg/dL (0.0-0.4); BILIRUBIN,TOTAL 0.6 mg/dL (0.2-1.3); BLOOD UREA NITROGEN 15 mg/dL (7-20); CALCIUM 9.3 mg/dL (8.4-10.2); CARBON DIOXIDE 29 mmol/L (22-30); CHLORIDE 101 mmol/L (98-107); GLUCOSE 152 mg/dL (75-110); TOTAL PROTEIN 7.3 g/dL (6.3-8.2)
[2020-07-26 14:43] LABS: FREE T4 (FREE THYROXINE) 0.8 ng/dL (0.78-2.19)
[2020-07-26 14:57] LABS: THYROID STIMULATING HORMONE 2.19 uIU/mL (0.47-4.68)
--- NOTE | 2020-07-26 15:20 | ER Document Report ---
ED General - General Chief Complaint: Chest Pain Stated Complaint: CHEST PAIN Time Seen by Provider: 07/26/20 13:29 Mode of Arrival: Ambulatory Information source: Patient Notes: 07/26/20 13:30 - ED [facility] Num: [id number] : 1985 Patient Age: 35 Pt presents to the ED for c/o chest pain/palpitations. Pt reports he has been having pain in his mid-sternal chest for the past week he related to heartburn. Reports he started with L-side chest pain today and felt like his heart was racing. Pt states he felt like he was having a panic attack. Reports taking Aspirin 81mg but sxs recurred prompting him to come to the ED. Pt is A&Ox4, breaths e/u, NAD, speaking in complete sentences. ED Medical Screen (Arcelia SCHULTZ) - General Chief Complaint: Chest Pain Stated Complaint: CHEST PAIN Time Seen by Provider: 07/26/20 13:29 TRAVEL OUTSIDE OF THE [place] IN LAST 30 DAYS: No - HPI Notes: 07/26/20 13:36 35-year-old male to the emergency department with complaints of midsternal constant chest pain for 1 week and then worsening chest pain this morning to the left side of his chest. He states he also feels like his heart is racing. Denies shortness of breath, diaphoresis, nausea vomiting, radiation into the back or down the arm. He took a baby aspirin at the time of his symptoms were the worst but he states that he got worried when he started to feel more racing and more pain. He rates his pain as a 3 out of 5. He has never had a heart attack and nobody in his family has had a heart attack. He is a diabetic and was diagnosed several months ago. He takes metformin and is supposed to take Lantus but has been hesitant to take the Lantus because his sugars been running in the 110s this week. He is not a smoker. He denies any leg swelling. Denies increase in CP with movement or deep breath. I performed a brief medical screening exam on the patient determined that the patient needs further evaluation and management by main side provider. I have placed initial orders to help expedite care. MY NOTES 35-year-old black male arrives with left-sided chest pain radiating to his left shoulder as he tries to lift his arm up for 1 day. Patient just moved into a new house and has been weed eating around the house. He usually wears long sleeve because he is skin sensitive and gets rashes easily. He did not do this several days ago when a had grass is going to his forearms and hands. He has a cocker spaniel dog and is allergic to dogs but because he lives with his dog/ he keeps the dog in the house. He gets asthma type symptoms periodically. He is scheduled to see Dr. Niki Perez this week. 3 months ago he was diagnosed here with diabetes and has been taking his metformin but not his Lantus his sugar has been running around 150 and is afraid of dropping his sugar too much. His mother informed him of this because she is diabetic herself. Patient reports as he is weed eating he got small grasp on his hands he now he has small bumps on his hands and distal forearms. He took some Benadryl and these resolved. He has a history of GERD and awoke several days ago with tachycardia. He denies any fever chills or coronavirus symptoms. No one in his family has any heart problems or any vascular blood pressure problems. TRAVEL OUTSIDE OF THE [place] IN LAST 30 DAYS: No - HPI Onset: This morning Onset/Duration: Sudden, Persistent Quality of pain: Achy Severity: Mild Pain Level: 1 - Upon abducting his left arm. The patient is right-hand domina nt. Patient points to his left pectoral muscle from midsternal to his left deltoid area. - Related Data Allergies/Adverse Reactions: cyclobenzaprine HCl [From Flexeril] Allergy (Verified 06/16/20 04:14) ibuprofen [From Motrin] Allergy (Verified 06/16/20 04:14) ketorolac tromethamine [From Toradol] Allergy (Verified 06/16/20 04:14) lorazepam [From Ativan] Allergy (Verified 06/16/20 04:14) tramadol [Tramadol] Allergy (Verified 06/16/20 04:14) Home Medications: metformin, lantus, lexapro, Past Medical History - General Information source: Patient - Social History Smoking Status: Never Smoker Cigarette use (# per day): No Chew tobacco use (# tins/day): No Smoking Education Provided: No Frequency of alcohol use: None Drug Abuse: None Lives with: Spouse/Significant other - Family History: Reviewed & Not Pertinent, DM Patient has suicidal ideation: No Patient has homicidal ideation: No - Past Medical History Cardiac Medical History: Denies: Hx Atrial Fibrillation, Hx Congestive Heart Failure, Hx Heart Attack, Hx Peripheral Vascular Disease Pulmonary Medical History: Denies: Hx Asthma, Hx COPD, Hx Pneumonia, Hx Respiratory Failure Neurological Medical History: Denies: Hx Seizures Endocrine Medical History: Reports: Hx Diabetes Mellitus Type 2 Renal/ Medical History: Denies: Hx Peritoneal Dialysis GI Medical History: Reports: Hx Gastroesophageal Reflux Disease. Denies: Hx Cirrhosis, Hx Crohn's Disease, Hx Ulcerative Colitis Musculoskeletal Medical History: Denies Hx Arthritis, Denies Hx Fibromyalgia, Denies Hx Gout Psychiatric Medical History: Reports: Hx Anxiety, Hx Depression - PTSD, anxiety, Hx Post Traumatic Stress Disorder Past Surgical History: Reports: Hx Oral Surgery, Hx Tonsillectomy, Other - Tympanostomy tubes - Immunizations Hx Diphtheria, Pertussis, Tetanus Vaccination: Yes Review of Systems - Review of Systems Constitutional: No symptoms reported EENT: No symptoms reported Cardiovascular: See HPI, Chest pain Respiratory: No symptoms reported Gastrointestinal: No symptoms reported Genitourinary: No symptoms reported Male Genitourinary: No symptoms reported Musculoskeletal: No symptoms reported Skin: See HPI, Rash - over hands Hematologic/Lymphatic: No symptoms reported Neurological/Psychological: No symptoms reported Physical Exam - Vital signs Vitals: Temp Pulse Resp BP Pulse Ox 98.3 F 72 18 129/83 H 94 07/26/20 13:35 07/26/20 13:35 07/26/20 13:35 07/26/20 13:35 07/26/20 13:35 Interpretation: Normal, Other - hypertensive 99 diasytolic - General General appearance: Alert - HEENT Head: Normocephalic, Atraumatic Eyes: Normal Pupils: PERRL Nasal: Normal Mouth/Lips: Normal Mucous membranes: Normal Pharynx: Normal Neck: Normal - Respiratory Respiratory status: No respiratory distress Chest status: Tender Breath sounds: Normal Chest palpation: Normal - Cardiovascular Rhythm: Regular Heart sounds: Normal auscultation Murmur: No - Abdominal Inspection: Normal Distension: No distension Bowel sounds: Normal Tenderness: Nontender Organomegaly: No organomegaly - Rectal Prostate: Other - deferred - Genitourinary Scrotum: Other - deferred - Back Back: Normal - Extremities General upper extremity: Normal inspection General lower extremity: Normal inspection - Neurological Neuro grossly intact: Yes Cognition: Normal Orientation: AAOx4 [place] Coma Scale Eye Opening: Spontaneous Lisa Coma Scale Verbal: Oriented Lisa Coma Scale Motor: Obeys Commands [place] Coma Scale Total: 15 Speech: Normal Motor strength normal: LUE, RUE, LLE, RLE Sensory: Normal - Psychological Associated symptoms: Normal affect - Skin Skin Temperature: Warm Skin Moisture: Dry Course - Vital Signs Vital signs: Temp Pulse Resp BP Pulse Ox 98.3 F 72 18 129/83 H 94 07/26/20 13:35 07/26/20 13:35 07/26/20 13:35 07/26/20 13:35 07/26/20 13:35 - Laboratory Result Diagrams: 07/26/20 13:50 07/26/20 13:50 Laboratory results interpreted by me: 07/26/20 07/26/20 13:50 13:50 RBC 5.61 H Hgb 13.2 L MCV 73 L MCH 23.5 L RDW 16.2 H Eos % (Auto) 7.1 H Glucose 152 H ALT 76 H - Diagnostic Test Radiology reviewed: Reports reviewed - EKG Interpretation by Ct EKG shows normal: Sinus rhythm Rate: Normal Rhythm: NSR - with no ST elevation and no ST depression and no T wave elevation or T wave depression Discharge - Discharge Clinical Impression: Muscular aches, Chest pain at rest GERD (gastroesophageal reflux disease) Qualifiers: Esophagitis presence: without esophagitis Qualified Code(s): K21.9 - Gastro- esophageal reflux disease without esophagitis Condition: Good Disposition: HOME, SELF-CARE Additional Instructions: Follow-up with Dr. Prince this week return to ER as needed especially if chest pain returns or worsens. Take medicines as directed encourage fluids. Continue to have allergy awareness because you do have your dog in the house and grasses in the yard. Also be aware that Benadryl can cause a fast heart rate. Continue to check your blood sugars routinely. I agree with holding your Lantus and continue with metformin. Prescriptions: Alprazolam [Xanax 0.5 mg Tablet] 0.5 mg PO QHS #7 tab Sucralfate [Carafate 1 gm Tablet] 1 gm PO ACHS #40 tablet
[2020-07-26 16:57] VITALS: BP 154/100
--- NOTE | 2020-07-28 09:35 | EKG REPORT ---
SEVERITY:- ABNORMAL ECG - SINUS RHYTHM LEFT ANTERIOR FASCICULAR BLOCK ST ELEV, PROBABLE NORMAL EARLY REPOL PATTERN : Confirmed by: Sherman Payne MD 28-Jul-2020 09:34:39
== END 2020-07-26 16:50 | disposition home or self-care (01) ==
LOC: ER 13:17
DX: R07.9 Chest pain, unspecified (principal); M79.10 Myalgia, unspecified site; K21.9 Gastro-esophageal reflux disease without esophagitis; E11.9 Type 2 diabetes mellitus without complications; Z79.4 Long term (current) use of insulin; Z79.84 Long term (current) use of oral hypoglycemic drugs
CPT/HCPCS: 93005; 99285; 36415; 84439; 83735; 84443; 85025; 80053; 84484; 71046; 93010; A9270

== ENCOUNTER → 2020-08-27 | Outpatient (CLI) | payer MEDICARE ==
[2020-08-27 16:06] LABS: ABSOLUTE BASOPHILS # (AUTO) 0.1 10^3/uL (0.0-0.2); ABSOLUTE EOSINOPHILS # (AUTO) 0.3 10^3/uL (0.0-0.6); ABSOLUTE MONOCYTES (AUTO) 0.6 10^3/uL (0.1-1.4); ABSOLUTE NEUT (AUTO) 2.9 10^3/uL (1.7-8.2); BASOPHILS % (AUTO) 1.1 % (0-2); EOSINOPHILS % (AUTO) 5.7 % (0-6); HEMATOCRIT 41.1 % (37.9-51.0); HEMOGLOBIN 13.3 g/dL (13.5-17.0); LYMPHOCYTES % (AUTO) 34.1 % (13-45); MEAN CORPUSCULAR HEMOGLOBIN 23.5 pg (27.0-33.4); MEAN CORPUSCULAR HGB CONC 32.4 g/dL (32.0-36.0); MEAN CORPUSCULAR VOLUME 73 fl (80-97); MONOCYTES % (AUTO) 10.3 % (3-13); PLATELET COUNT 254 10^3/uL (150-450); RED BLOOD COUNT 5.67 10^6/uL (4.35-5.55); RED CELL DISTRIBUTION WIDTH 16.1 % (11.5-14.0); SEGMENTED NEUTROPHILS % (AUTO) 48.8 % (42-78); TOTAL CELLS COUNTED % (AUTO) 100 %; WHITE BLOOD COUNT 5.9 10^3/uL (4.0-10.5)
[2020-08-27 16:25] LABS: ALBUMIN 4.4 g/dL (3.5-5.0); ALKALINE PHOSPHATASE 41 U/L (38-126); ANION GAP 10 (5-19); ASPARTATE AMINO TRANSFERASE 29 U/L (17-59); BILIRUBIN,DIRECT 0.2 mg/dL (0.0-0.4); BILIRUBIN,TOTAL 0.5 mg/dL (0.2-1.3); BLOOD UREA NITROGEN 15 mg/dL (7-20); CALCIUM 9.1 mg/dL (8.4-10.2); CARBON DIOXIDE 25 mmol/L (22-30); CHLORIDE 105 mmol/L (98-107); CHOLESTEROL 148.96 mg/dL (0-200); GLUCOSE 114 mg/dL (75-110); POTASSIUM 4.2 mmol/L (3.6-5.0); TOTAL PROTEIN 7.2 g/dL (6.3-8.2); TRIGLYCERIDES 85 mg/dL (<150)
[2020-08-27 16:36] LABS: DIRECT LDL 76 mg/dL (<100)
[2020-08-30 07:11] LABS: INSULIN 35.9 uIU/mL (2.6-24.9)
== END ==
LOC: OD 15:20
PROVIDERS: ATTEND Internal Medicine
DX: E11.9 Type 2 diabetes mellitus without complications (principal); E66.3 Overweight; E78.5 Hyperlipidemia, unspecified
CPT/HCPCS: 36415; 80053; 80061; 83036; 83525; 84443; 84681; 85025